=== PATIENT | female | born 1975 | race Caucasian/White ===

== ENCOUNTER 2020-06-11 13:38 | Outpatient (CLI) | payer OTHER, SELFPAY | END 2020-06-11 13:39 | disposition home or self-care (01) | LOC: ANHBWCAUD 13:49 | PROVIDERS: PCP Family Medicine | DX: H90.3 Sensorineural hearing loss, bilateral (principal) | CPT/HCPCS: 92557; 92567 ==

== ENCOUNTER 2021-08-26 16:31 | Outpatient (CLI) | payer OTHER, SELFPAY ==
[2021-08-26 18:29] LABS: SARS-CoV-2 RNA PCR Positive (Negative)
== END 2021-08-26 16:32 | disposition home or self-care (01) ==
LOC: CHSLAB 16:34
PROVIDERS: PCP Family Medicine; Visit Provider Family Medicine
DX: U07.1 COVID-19 (principal)
CPT/HCPCS: C9803; U0003; U0005

== ENCOUNTER 2022-01-26 19:29 | Emergency (ER) | payer OTHER, SELFPAY ==
--- NOTE | 2022-01-26 19:32 | ED.SKABFB ---
HPI - Skin/Abscess/Foreign Bdy General Chief complaint: Skin/Abscess/Foreign Body Stated complaint: rash on legs and arm Time Seen by Provider: 01/26/22 19:32 Source: patient and RN notes reviewed History of Present Illness HPI narrative: Patient is a 46-year-old female who presents the urgent care with complaints of a rash to the legs and arms. Patient states that she believes she has an autoimmune disorder that is causing the rashes however she is unable to see her ski production supervisor until May. Patient states that her mom has lupus and have the same type of rash breakouts. Patient states it only happens when she has direct exposure to the sun. Patient states it got worse yesterday and has been causing a lot of itching and burning. Patient has not put anything [id number] on the rash. No other acute complaints. No acute distress noted. Patient aware of the plan of care. Some parts of this dictation were generated by voice recognition software and may contain typographical and/or grammatical inaccuracies. Related Data Home Medications Medication Instructions Recorded Confirmed fluoxetine 20 mg tablet 20 mg PO DAILY 01/26/22 01/26/22 gabapentin 100 mg capsule 300 mg PO TID 01/26/22 01/26/22 Allergies Allergy/AdvReac Type Severity Reaction Status Date / Time codeine Allergy Mild RASH Verified 01/26/22 19:42 Review of Systems Review of Systems: CONSTITUTIONAL: Denies fever, chills, or sweats. EYES: Denies visual changes, redness, or discharge. ENT: Denies rhinorrhea, congestion, sore throat, or otalgia. CARDIOVASCULAR: Denies chest pain, palpitations, or edema. RESPIRATORY: Denies cough or dyspnea. GASTROINTESTINAL: Denies abdominal pain, nausea, vomiting, or diarrhea. GENITOURINARY: Denies dysuria or hematuria. SKIN: Reports of an itchy raised erythemic dermatitis to bilateral arms and legs MUSCULOSKELETAL: Denies back pain, joint pain, or myalgia. NEUROLOGIC: Denies headache, numbness, or weakness. All other systems reviewed are negative, except as documented in HPI. PMFSH Comments At the time of my signature, I reviewed and agree with the nursing past medical, surgical, social, and family history. There is no relevant family history pertinent to the patient complaint. Exam Narrative: GENERAL: This is a well-nourished, well-developed patient, in no apparent distress. HEAD: normocephalic, atraumatic. EYES: PERRL. Sclera clear/white. Vision is grossly intact. EARS: External ears normal NOSE: External nose normal with no obvious nasal discharge, nares without redness, no rhinorrhea. THROAT: Mucous membranes moist NECK: Neck supple SKIN: Raised erythemic vesicular/papular areas of dermatitis noted to bilateral antecubital fossa's, bilateral upper arms, and right medial thigh NEURO: awake, alert, and oriented to person, place and time. There were no obvious focal neurologic abnormalities. EXTREMITIES: No clubbing, cyanosis, or edema. Course Course Level of Care: Express Care Visit Vital Signs Vital signs: Vital Signs Temperature 97.6 F 01/26/22 19:36 Pulse Rate 74 01/26/22 19:36 Respiratory Rate 16 01/26/22 19:36 Blood Pressure 139/80 01/26/22 19:36 Pulse Oximetry 100 01/26/22 19:36 Temperature 97.6 F 01/26/22 19:36 Pulse Rate 74 01/26/22 19:36 Respiratory Rate 16 01/26/22 19:36 Blood Pressure 139/80 01/26/22 19:36 Pulse Oximetry 100 01/26/22 19:36 Reviewed MDM - Skin/Abscess/Foreign Bdy MDM Narrative Medical decision making narrative: Advised the patient to avoid direct sun exposure. Sit under an umbrella or in the shade if you are going to be outside. Would recommend following up with the ski production supervisor as scheduled and continue to follow-up and call for a sooner appointment. Be aware that any type of heat, even warm showers or bath, will exacerbate the areas. Use the prescription cream to the affected areas as directed. Use a daily antihistamine such as or Cla
[2022-01-26 19:36] VITALS: BP 139/80; PULSE 74; RESP 16; TEMP 36.4; O2SAT 100
== END 2022-01-26 19:55 | disposition home or self-care (01) ==
PROVIDERS: Emergency Provider Nurse Practitioner Family; PCP Family Medicine
DX: L30.9 Dermatitis, unspecified (principal); I34.1 Nonrheumatic mitral (valve) prolapse; J45.909 Unspecified asthma, uncomplicated; Q15.0 Congenital glaucoma
CPT/HCPCS: 99213; G0463

== ENCOUNTER 2022-10-03 12:31 | Emergency (ER) | payer OTHER, SELFPAY ==
--- NOTE | ~2022-10-03 | XR_ITS ---
XR lumbar spine min 4V DATE: 10/03/2022 13:19 INDICATION: Chronic low back pain radiating to left hip TECHNIQUE: AP, lateral, coned lateral lumbosacral and bilateral oblique views COMPARISON: None FINDINGS: There is normal alignment of the lumbar spine. No fracture or bone destruction or spondylolisthesis. The included lower thoracic and lumbar pedicles are intact. There is severe degenerative disease at L5-S1 and mild degenerative disease at the remainder of the l umbar spine. No spondylolysis. The sacroiliac joints are intact. IMPRESSION: Multilevel degenerative disc disease, severe at L5-S1 Reviewed, dictated and finalized at location A. CALL PHARMACY TECHNICIAN
[2022-10-03 12:43] VITALS: BP 131/77; PULSE 84; RESP 16; TEMP 36.9; O2SAT 99
--- NOTE | 2022-10-03 12:45 | ED.BACK ---
HPI - Back Pain/Injury General Chief Complaint: Back Pain/Injury Stated Complaint: Lower back pain to left hip Time Seen by Provider: 10/03/22 12:46 History of Present Illness HPI Narrative: PATIENT PRESENTS WITH A HISTORY OF CHRONIC LOW BACK PAIN. PATIENT DENIES ANY NEW INJURIES AND IS SEEN BY A NEUROLOGIST WITH HER NEXT APPOINTMENT IN NOVEMBER OF 2022 PATIENT STATES THE PAIN STARTS IN HER LOW BACK PAIN AND RADIATES DOWN TO HER LEFT HIP. NO NUMBNESS OR TINGLING NO BOWEL OR BLADDER PROBLEMS. PATIENT STATES SHE WENT TO HER PRIMARY CARE PROVIDER FOR THE BACK PAIN AND WAS DIAGNOSED WITH A UTI ISSUES CURRENTLY TAKING MACROBID FOR THOSE SYMPTOMS. Related Data Home Medications Medication Instructions Recorded Confirmed fluoxetine 20 mg tablet 20 mg PO DAILY 01/26/22 01/26/22 gabapentin 100 mg capsule 300 mg PO TID 01/26/22 01/26/22 brinzolamide 1 %-brimonidine 0.2 % drp 10/03/22 eye drops,suspension (Simbrinza) duloxetine 30 mg capsule,delayed mg PO 10/03/22 release fremanezumab-vfrm 225 mg/1.5 mL mg subcut 10/03/22 subcutaneous auto-injector ([employer]) hydrocodone 5 mg-acetaminophen 325 tablet 10/03/22 mg tablet ketorolac 0.5 % eye drops drp 10/03/22 latanoprost 0.005 % eye drops drp 10/03/22 nitrofurantoin 10/03/22 monohydrate/macrocrystals 100 mg capsule prednisolone acetate 1 % eye drp 10/03/22 drops,suspension timolol maleate 0.5 % eye drops drp 10/03/22 Allergies Allergy/AdvReac Type Severity Reaction Status Date / Time codeine Allergy Mild RASH Verified 01/26/22 19:42 Review of Systems Review of Systems: CONSTITUTIONAL: DENIES FEVER, CHILLS, OR SWEATS. EYES: DENIES VISUAL CHANGES, REDNESS, OR DISCHARGE. ENT: DENIES RHINORRHEA, CONGESTION, SORE THROAT, OR OTALGIA. CARDIOVASCULAR: DENIES CHEST PAIN, PALPITATIONS, OR EDEMA. RESPIRATORY: DENIES COUGH OR DYSPNEA. GASTROINTESTINAL: DENIES ABDOMINAL PAIN, NAUSEA, VOMITING, OR DIARRHEA. GENITOURINARY: DENIES DYSURIA OR HEMATURIA. SKIN: DENIES RASH OR ITCHING. MUSCULOSKELETAL: DENIES BACK PAIN, JOINT PAIN, OR MYALGIA. NEUROLOGIC: DENIES HEADACHE, NUMBNESS, OR WEAKNESS. PSYCHIATRIC: DENIES ANXIETY OR DEPRESSION. PMFSH Comments AT TIME OF SIGNATURE, AGREE WITH NURSING PAST MEDICAL, SURGICAL, SOCIAL AND FAMILY HISTORY. THERE IS NO RELEVANT FAMILY HISTORY PERTINENT TO THE PRESENTING COMPLAINT Exam Narrative: GENERAL: WELL-APPEARING, WELL-NOURISHED, AND IN NO ACUTE DISTRESS. HEAD: NORMOCEPHALIC, ATRAUMATIC. EYES: PERRLA AND EOMI. ENT: NARES CLEAR, NO RHINORRHEA OR EPISTAXIS. MUCOUS MEMBRANES MOIST. NECK: SUPPLE. CHEST: CLEAR TO AUSCULTATION. NO RESPIRATORY DISTRESS. HEART: REGULAR RATE AND RHYTHM. NO MURMUR HEARD. NORMAL PERIPHERAL PULSES. ABDOMEN: SOFT, NONTENDER, NONDISTENDED, NORMAL ACTIVE BOWEL SOUNDS. EXTREMITIES: NORMAL RANGE OF MOTION. NO EDEMA. SKIN: WARM, DRY, NO RASH. SPINE MIDLINE. NO CURVATURE APPARENT. NO VERTEBRAL POINT SPECIFIC TENDERNESS. NO DEFORMITY. NO STEP-OFFS. NORMAL LE STRENGTH BILATERALLY. NORMAL LE SENSATION BILATERALLY. ABLE TO WALK ON TOES AND HEELS WITH NORMAL DORSIFLEXION AND PLANTAR FLEXION STRENGTH. NO WEAKNESS OBSERVED WITH GAIT. LEFT PARASPINAL MUSCLE TENDERNESS FLEXION STRENGTH. NO WEAKNESS OBSERVED WITH GAIT. LEFT PARASPINAL MUSCLE TENDERNESS. LEFT SI JOINT TENDERNESS. FLEXION AND EXTENSION ROM NORMAL, ONLY SLIGHT LIMITATION. NEURO: NO FOCAL DEFICITS. ALERT AND ORIENTED X3. LISA COMA SCALE EYE OPENING: SPONTANEOUS 4 LISA COMA SCALE MOTOR: OBEYS COMMANDS 6 LISA COMA SCALE VERBAL: ORIENTED 5 LISA COMA SCALE TOTAL 15 Course Course Level of Care: Express Care Visit Vital Signs Vital signs: Vital Signs Temperature 36.9 C 10/03/22 12:43 Pulse Rate 84 10/03/22 12:43 Respiratory Rate 16 10/03/22 12:43 Blood Pressure 131/77 10/03/22 12:43 Pulse Oximetry 99 10/03/22 12:43 Oxygen Delivery Room Air 10/03/22 12:43 Temperature 36.9 C 10/03/22 12:43 Pulse Rate 84 10/03/22
== END 2022-10-03 13:32 | disposition home or self-care (01) ==
PROVIDERS: Emergency Provider Nurse Practitioner Family; PCP Nurse Practitioner Adult Health
DX: S39.012A Strain of muscle, fascia and tendon of lower back, initial encounter (principal); X58.XXXA Exposure to other specified factors, initial encounter; G89.29 Other chronic pain; M54.50 Low back pain, unspecified; I34.1 Nonrheumatic mitral (valve) prolapse; J45.909 Unspecified asthma, uncomplicated; M79.7 Fibromyalgia; Q13.81 Rieger anomaly
CPT/HCPCS: 72110; 99213; G0463

== ENCOUNTER 2024-04-14 14:10 | Emergency (ER) | payer OTHER, SELFPAY ==
--- NOTE | 2024-04-14 14:15 | ED.URI ---
HPI - URI/Sore Throat General Stated Complaint: headache/aches/tired/exposed to covid Time Seen by Provider: 04/14/24 14:26 Source: patient and RN notes reviewed Mode of arrival: ambulatory Limitations: no limitations History of Present Illness HPI Narrative: 49-year-old female presents with concern for fatigue, nasal drainage, headache, sinus pressure, body aches. Reports she was exposed to COVID at home. She has taken Tylenol. MD elicited complaint: cough Related Data Home Medications Medication Instructions Recorded Confirmed brinzolamide 1 %-brimonidine 0.2 % drp 10/03/22 eye drops,suspension (Simbrinza) ketorolac 0.5 % eye drops drp 10/03/22 latanoprost 0.005 % eye drops drp 10/03/22 prednisolone acetate 1 % eye drp 10/03/22 drops,suspension timolol maleate 0.5 % eye drops drp 10/03/22 Allergies Allergy/AdvReac Type Severity Reaction Status Date / Time codeine Allergy Mild RASH Verified 01/26/22 19:42 Review of Systems Review of Systems: CONSTITUTIONAL: Denies malaise, chills, sweats, or fever. EYES: Denies visual changes, redness, or discharge. ENT: Reports rhinorrhea, congestion, sinus pain, otalgia and sore throat. CARDIOVASCULAR: Denies chest pain, palpitations, or edema. RESPIRATORY: Reports cough. Denies dyspnea. GASTROINTESTINAL: Denies abdominal pain, nausea, vomiting, diarrhea SKIN: Denies rash or itching. MUSCULOSKELETAL: Denies myalgia. NEUROLOGIC: Denies headache. All systems reviewed & are unremarkable except as noted in HPI and below PMFSH Comments At time of signature, agree with nursing past medical, surgical, social and family history. There is no relevant family history pertinent to the presenting complaint Exam Narrative: GENERAL: Well-appearing, well-nourished, and in no acute distress. HEAD: Normocephalic EYES: PERRLA, conjunctivae clear ENT: Nares clear, turbinates edematous and erythematous, clear discharge. Mucous membranes moist. TM pearly mayers with dull light reflex bilaterally; no tragal tenderness. Oropharynx not erythematous without lesions. Tonsils not enlarged and without exudate, no drooling, no hoarseness, no trismus, uvula midline. NECK: Supple. No lymphadenopathy CHEST: Clear to auscultation, breath sounds equal. No wheezing, rhonchi, rales, or stridor. No respiratory distress, speaks in full sentences. HEART: Regular rate and rhythm. No murmur heard. SKIN: Warm, dry, no rash. NEURO: Alert and oriented x3. PSYCH: Normal mood and affect Course Course Emergency Course: Patient is aware of diagnosis, understands and agrees to treatment plan. Anticipatory guidance given. Patient agrees to follow-up as directed and is aware of reasons to seek care at the emergency department. Portions of this record may have been created with voice recognition software Level of Care: Express Care Visit Vital Signs Vital signs: Reviewed. MDM - URI/Sore Throat MDM Narrative Medical decision making narrative: Differential diagnosis considered: Rankin virus, strep pharyngitis, allergic rhinitis, upper respiratory tract infection, sinusitis, rhinosinusitis, nasopharyngitis. viral pharyngitis, otitis media, otitis externa, pneumonia, bronchitis, viral cough syndrome, viral syndrome, and influenza. Exam findings show no acute concerns or changes; patient is non-toxic appearing and is in no distress. Patient is appropriate for outpatient treatment and follow-up. Lab Data Attestation: I reviewed the patient's lab results. Critical Care Time Critical Care Time Critical Care Time: No Discharge Plan Discharge Clinical Impression: Acute viral syndrome Patient Disposition: Home, Self-Care Condition: Stable Instructions: Viral Syndrome (ED) Additional Instructions: Your rapid COVID test is negative. You can consider retesting for COVID in 1-3 days. -Take strict precautions to prevent the spread of your virus. Be diligent about covering your cough (even when yo
[2024-04-14 14:16] VITALS: BP 154/82; PULSE 74; RESP 16; TEMP 36.7; O2SAT 100
== END 2024-04-14 14:47 | disposition home or self-care (01) ==
PROVIDERS: Emergency Provider Nurse Practitioner; PCP Family Medicine
DX: B34.9 Viral infection, unspecified (principal); Z20.822 Contact with and (suspected) exposure to COVID-19; I34.1 Nonrheumatic mitral (valve) prolapse; J45.909 Unspecified asthma, uncomplicated; M79.7 Fibromyalgia
CPT/HCPCS: 87426; 99212; G0463

== ENCOUNTER 2024-10-13 18:23 | Emergency (ER) | payer OTHER, SELFPAY ==
--- NOTE | 2024-10-13 18:24 | ED.URI ---
HPI - URI/Sore Throat General Chief Complaint: Upper Respiratory Infection Stated Complaint: Cough/Congestion/Fever/Dizziness/Nausea Time Seen by Provider: 10/13/24 18:24 Source: patient Mode of arrival: ambulatory Limitations: no limitations History of Present Illness HPI Narrative: Patient is a 49-year-old female presents with cough, congestion, intermittent fever for over 1 week. Body aches and chills have resolved. Does report symptoms started to resolve 2 days ago and then significantly worsened. Does report mild nausea and dizziness for 1 day with the sinus pressure. Took Tylenol Motrin without relief. Related Data Allergies Allergy/AdvReac Type Severity Reaction Status Date / Time codeine Allergy Mild RASH Verified 01/26/22 19:42 Review of Systems Review of Systems: All systems reviewed & are unremarkable except as noted in HPI and below Constitutional: Constitutional: Denies chills, Denies fatigue, Reports fever(s), Denies headache(s), Denies malaise and Denies weakness Eyes: Eyes: Denies blurry vision, Denies itchy eyes and Denies loss of vision ENT: Denies otalgia, Denies headache(s), Reports nasal congestion, Denies sinus pain and Denies sore throat Cardiovascular: Cardiovascular: Denies chest pain, Denies irregular heart rhythm and Denies dyspnea Respiratory: Respiratory: Reports cough and Denies dyspnea Gastrointestinal: Gastrointestinal: Denies abdominal pain, Denies diarrhea, Reports nausea and Denies vomiting Musculoskeletal: Musculoskeletal: Denies back pain, Denies myalgias and Denies arthralgias Integumentary/Breasts: Skin/Breast: Denies pruritus and Denies rash Neurologic: Reports dizziness, Denies headache(s), Denies loss of vision and Denies weakness Psychiatric: Psychiatric: Reports no additional psychiatric complaints Endocrine: Endocrine: Denies fatigue Allergic/Immunologic: Allergic/Immunologic: Denies itchy eyes PMFSH Comments At time of signature, agree with nursing past medical, surgical, social and family history. There is no relevant family history pertinent to the presenting complaint. Exam Const: General: cooperative, healthy appearing, comfortable, no acute distress and well nourished Nutritional Appearance: well nourished Orientation/consciousness: patient oriented x3 Limitations: no limitations HENMT: Head: normal to inspection, normocephalic and atraumatic Ears: hearing grossly normal bilaterally, external ears normal, EAC's normal, no periauricular adenopathy and TM abnormal wth effusion serous bilateral Face/Nose/Sinus: Normal external nose present, Abnormal mucous membranes and turbinates present erythematous bilateral and diffuse, normal facial exam, sinuses nontender and face symmetric Face and sinus: normal facial exam, sinuses nontender and face symmetric Mouth: Yes Normal oral and palatal mucosa present, Yes lip normal, Yes tongue normal, Yes Normal salivary glands and ducts present, Yes oropharynx normal and Yes moist mucous membranes Teeth and gingiva: dentition normal Throat: posterior oropharynx normal, tonsils normal and uvula midline Eyes: General: appearance normal, both eyes and all related structures Alignment and Position: alignment normal and position normal Periorbital: periorbital findings normal Eyelids: eyelids normal Pupils: Equal, round and reactive pupils present Neck: Neck: normal visual inspection, full ROM, no lymphadenopathy and supple Chest: Chest palpation & inspection: normal inspection of the chest and normal palpation of entire chest wall Resp: Effort & Inspection: normal respiratory effort, able to speak in complete sentences and Actively coughing actively coughing Auscultation: clear to auscultation bilaterally, no crackles, no rales, no rhonchi and no wheezes Cardio: Rate: regular rate Rhythm: regular rhythm Heart sounds: S1 normal heart sound present and S2 normal heart sound present GI: Inspection: normal to inspection Skin: General skin exam: normal color and no rashes or lesions noted Neuro: General: patient oriented x3 and moves all extremities Cranial nerves: Yes Equal, round and reactive pupils present Speech: normal speech Gait exam (Neuro): Normal gait present Extrem: General: normal to inspection, full ROM and no edema Psych: Appearance: grossly normal and well kempt Mental Status: mental status grossly normal Speech and movement: Normal speech and movement present Affect: normal affect Attitude: cooperative Thought process: Normal thought process present Course Course Emergency Course: Discharge instructions reviewed with patient, as well as provided in writing per nursing staff. The instructions also include specific and strict return/GO TO THE ER as well as f/u information. All questions have been answered, and the patient deny any further questions with discharge and discharge plan. Portions of this record may have been created with voice recognition software Level of Care: Express Care Visit Vital Signs Vital signs: Reviewed MDM - URI/Sore Throat MDM Narrative Medical decision making narrative: Pt well hydrated appearing, in no respiratory distress, hemodynamically stable. Recommend supportive care. The patient is stable at time of discharge the clinical impression was discussed and the patient was given the opportunity to ask questions, which were addressed as completely as possible given the information available at present. Anticipatory guidance and return to care precautions were discussed and the importance of primary care follow-up was stressed and encouraged. The patient voiced understanding of the plan, indications to return, and the need for follow-up. Differential diagnosis considered: Bronchitis, Rankin virus, strep pharyngitis, allergic rhinitis, upper respiratory tract infection, sinusitis, rhinosinusitis, nasopharyngitis. viral pharyngitis, otitis media, otitis externa, otitis effusion, foreign body, cerumen impaction, viral syndrome, and influenza.? Exam findings show no acute concerns or changes; patient is non-toxic appearing and is in no distress.? Patient is appropriate for outpatient treatment and follow-up.? Medical Records Attestation: I reviewed the patient's medical records. Discharge Plan Discharge Clinical Impression: Upper respiratory infection with cough and congestion Patient Disposition: Home, Self-Care Condition: Stable Instructions: Upper Respiratory Infection (ED) Additional Instructions: Take antibiotic as prescribed. Take steroids in the morning with food. Use Tessalon Perles as needed for cough. Use inhaler with spacer as needed. Other symptomatic treatments include: -Alternate Tylenol and Motrin per package directions for fever or pain: Tylenol 650-1000mg by mouth every 4-6 hours. Do not exceed 4000mg in 24 hours. Advil (Ibuprofen) 600 mg by mouth every 6 hours. Do not exceed 2400mg in 24 hours. 8 AM: Tylenol 11 AM: Ibuprofen 2 PM: Tylenol 5 PM: Ibuprofen 8 PM: Tylenol 11 PM: Ibuprofen 2 AM: Tylenol 5 AM: Ibuprofen -Antihistamine medication such as Benadryl at night and Zyrtec/Claritin/Sofía during the day can help improve symptoms. -Use Flonase twice a day for 5 days then daily to help reduce the inflammation and dry up your sinuses. -You can also use Sudafed or Mucinex. Be sure to drink plenty of water with these medications at least 8 ounces with every dose and it is important to drink 8 to 10 glasses of water per day. Water is a natural decongestant -Eat and drink things that are easy to swallow, like tea or soup, or popsicles. -Oral rinses such as: Salt water gargles and/or may use topical anesthetic (eg. Chloraseptic spray) or lozenges to relieve dryness or throat pain). -Frequent hand washing or hand equipment maint tech is one of the best ways to prevent spread of infection. -Using a vaporizer or humidifier at night will also help thin secretions and help with coughing up phlegm. Call your Primary Care Doctor and make a follow-up appointment in 3 days. If your cough worsens, you develop a fever greater than 103, you develop shaking chills, a fast heartbeat, trouble breathing and/or feel you are are breathing much faster than usual, call your Primary Care Doctor or go to the ER. Patient Language: Chadian Prescriptions: New albuterol sulfate 90 mcg/actuation HFA aerosol inhaler 2 puff inhalation QID PRN (Reason: shortness of breath or wheezing) Qty: 6.7 0RF (DME) Aerochamber MV Spacer See Rx Instructions .Route Qty: 1 0RF Rx Instructions: As directed amoxicillin 875 mg tablet 875 mg PO Q12H 7 Days Qty: 14 0RF benzonatate 100 mg capsule 100 mg PO BID PRN (Reason: cough) Qty: 14 0RF fluticasone propionate [Flonase Allergy Relief] 50 mcg/actuation spray,suspension 1 spray intranasal DAILY Qty: 16 0RF Rx Instructions: administer into each nostril prednisone 20 mg tablet 40 mg PO DAILY 5 Days Qty: 10 0RF Follow-up/Referrals: Libia,David Hargrove MD [Primary Care Provider] - 3 Days Time of Disposition: 18:56
--- OUTSIDE RECORDS SUMMARY | 2024-10-13 18:26 | XMS_ITS | Encounter Summary ---
Author Organization [facility] Address [address] [place] [address] Care Team Providers Care Sheet Metal Insulator Name Role Phone David Clark MD Primary Care Provider [phone] Reason for Visit * Reason Onset Date Comments Appointment 08/31/2024 Encounter Details Date Type Department Care Team (Late st Contact Info) Description 08/31/2024 Telephone [facility] - Ophthalmology [address] [place] [phone] Jerri Carrasco MD [address] [place] [address] [place] [phone] Appointment Social History Tobacco Use Types Packs/Day Years Used Date Smoking Tobacco: Every Day Cigarettes 0.5 23.1 Started: 2001 Smokeless Tobacco: Never Comments:Tried patches, didn 't work, used to be at a full pack but now at half pack Alcohol Use Standard Drinks/Week Comments Not Currently 0 (1 standard drink = 0.6 oz pur e alcohol) occasionally PHQ-2 Answer Date Recorded PHQ2 TOTAL SCORE 2 07/23/2022 Sex and Gender Information Value Date Recorded Sex Assigned at Not on file Gender Identity Not on file Sexual Orientation Not on file documented as of this encounter Functional Status Functional Status Response Date of Assess ment Is person deaf or have serious hearing difficult y? No 06/19/2019 Is person blind or have serious difficulty seein g? No 06/19/2019 Does person have serious dif ficulty walking/climbing stairs? No 06/19/2019 Does person have difficulty dressing/bathing? No 06/19/2019 Does person have difficulty doing errands alone? No 06/19/2019 Cognitive Status Response Date of Assessm ent Does person have difficulty concentrating/remembering/making decisions? No 06/19/2019 documented as of this encounter Miscellaneous Notes * Telephone Encounter - Phillip Rodríguezicka - 08/31/2024 10:27 AM CST Current Provider name:Dr Carrasco Reason for call: patient is calling the office to schedule an appt with Dr Carrasco Patient Call Back number: [phone] R LODGE CLERK documented in this encounter Plan of Treatment Upcoming Encounters Date Type Department Care Team (Latest Contact Info) Description 10/24/2024 1:00 PM MOTOR LODGE CLERK Office Visit [facility] - Neurology [address] [place] [phone] Gladis Prince MD [address] [place] [address] [place] [phone] 01/22/2025 1:15 PM CDT Office Visit [facility] - Ophthalmology [address] [place] [phone] Jerri Carrasco MD [address] [place] [address] [place] [phone] 02/26/2025 9:15 AM CDT Hospital Encounter [facility] [address] [place] [phone] Renard Momin MD [address] [place] [phone] Surgery General 02/26/2025 9:15 AM CDT - 02/26/2025 11:20 AM CDT Surgery [facility] [address] [place] [phone] Renard Momin MD [address] [place] [phone] Baerveldt implant 250mm RIGHT EYE Scheduled Procedures Name Priority Associated Diagnoses Date/Ti me 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
--- OUTSIDE RECORDS SUMMARY | 2024-10-13 18:26 | XMS_ITS | Encounter Summary ---
Author Organization [facility] Health Address [address] [place] [address] Care Team Providers Care Hydrologic Engineer Name Role Phone David Clark MD Primary Care Provider [phone] Encounter Details Date Type Department Care Team (Late st Contact Info) Description 04/01/2023 Telephone [facility] - Centralized Scheduling [address] [place] [phone] Jerri Carrasco MD [address] [facility] [place] [phone] Social History Tobacco Use Types Packs/Day Years [...] No 06/19/2019 documented as of this encounter Plan of Treatment Upcoming Encounters Date Type Department Care Team (Latest Contact Info) Description 10/24/2024 1:00 PM RIVET HOLE PUNCHER Office Visit [facility] - Neurology [address] [place] [phone] Gladis Prince MD [address] [place] [address] [place] [phone] 01/22/2025 1:15 PM CDT Office Visit [facility] - Ophthalmology [address] [place] [phone] Jerri Carrasco MD [address] [place] [address] [place] [phone] 02/26/2025 9:15 AM CDT Hospital Encounter [facility] [address] [place] [phone] Renard Momin MD [address] [place] [phone] Surgery General 02/26/2025 9:15 AM CDT - 02/26/2025 11:20 AM CDT Surgery [facility] [address] [place] [phone] Renard Momin MD [address] [place] [phone] Baerveldt implant 250mm RIGHT EYE Scheduled Procedures Name Priority Associated Diagnoses Date/Ti me 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
--- OUTSIDE RECORDS SUMMARY | 2024-10-13 18:26 | XMS_ITS | Clinical Summary ---
Author Organization [facility] Address [address] [place] [address] Care Team Providers Care Band Director Name Role Phone David Clark MD Primary Care Provider [phone] Source Comments [facility],non-owned Affiliates and Associated Physician Practices is amultiple site organization consisting of ambulatory clinics and hospital sitesin [place], [place], [place] and [place]. This disclosure is being madepursuant to the Care Everywhere program and may not contain all information available regarding this patient. Last updated 18.[facility] Allergies Active Allergy Reactions Criticality Noted Date Comments Acetazolamide Shortness of Breath High 12/31/2017 Severe reaction. Could not breathe, move or walk. Codeine Urticaria Medium 09/03/2017 Codeine Urticaria Medium 09/03/2017 Dorzolamide-Timolol Other Medium 12/29/2019 Burning sensation, severe per patient Shellfish-Derived Products Shortness of Breath,Rash,Swelling ,Other High 06/13/2018 Medications * Be aware that medications may not be up to date on this document. Alwaysverify current medications with the patient. Medication Sig Dispensed Refills Start Date End Date Status ibuprofen (MOTRIN) 600 MG tablet Take 1 (one) tablet by mouth every 6 hours as needed for Pain Active EPINEPHrine (EPIPEN) 0.3 MG/0.3ML auto-injector pen Inject 0.3 mL into muscle as needed for Anaphylaxis 0.3 mL 10/10/2020 Active gabapentin (NEURONTIN) 100 MG capsuleIndicatio ns:Migraine without status migrainosus, not intractable, unspecified migraine type,Numbness and tingling of right leg Take 3 (three) capsules by mouth 3 times daily 270 capsule 3 05/27/2021 Active DULoxetine (Cymbalta) 30 MG capsule Take 1 (one) capsule by mouth once daily 07/20/2022 Active Fremanezumab-vfr m (Ajovy) 225 MG/1.5ML SOAJIndications: Migraine without status migrainosus, not intractable, unspecified migraine type Inject 225 mg subcutaneously every 30 days 1.5 mL 5 09/07/2022 Active phenazopyridine (Pyridium) 100 MG tablet Take 1 (one) tablet by mouth 3 times daily as needed for Pain Active docusate sodium (Colace) 100 MG capsule TAKE 1 CAPSULE BY MOUTH TWICE A DAY FOR 14 DAYS 03/11/2023 Active solifenacin (Vesicare) 10 MG tablet Take 1 (one) tablet by mouth once daily 08/30/2023 Active bimatoprost (Lumigan) 0.01 % ophth solution Instill 1 (one) drop into right eye at bedtime 15 mL 4 03/14/2024 Active brimonidine (Alphagan) 0.2 % ophthalmic solution Instill 1 (one) drop into both eyes 3 times daily 15 mL 4 03/31/2024 Active prednisoLONE acetate (Pred Forte) 1 % ophthalmic suspension PLEASE SEE ATTACHED FOR DETAILED DIRECTIONS 03/31/2024 Active timolol maleate (Timoptic) 0.5 % ophthalmic solution Instill 1 (one) drop into both eyes 2 times daily 15 mL 11 09/15/2024 Active timolol maleate (Timoptic) 0.5 % ophthalmic solution Instill 1 (one) drop into both eyes 2 times daily 15 mL 11 02/11/2024 09/15/19 25 Discontinu ed(Reorder ) Active Problems Problem Noted Date Diagnosed Date Acute anterior uveitis of right eye 02/02/2024 Hypermobility of joint 10/23/2022 Mitral valve prolapse 10/23/2022 Parosmia 10/23/2022 Phantosmia 10/23/2022 Sleep apnea 10/23/2022 Uterine mass 10/23/2022 CME (cystoid macular edema), right 06/26/2022 Nasal obstruction 10/14/2021 Deviated nasal septum 10/14/2021 Nasal turbinate hypertrophy 10/14/2021 Nasal valve collapse 10/14/2021 Edentulous 10/14/2021 Sleep related gastroesophageal reflux disease Back pain 10/14/2021 Allergic rhinitis 10/14/2021 Night sweats 10/14/2021 History of asthma 10/14/2021 GERD (gastroesophageal reflux disease) DJD (degenerative joint disease), multiple sites 10/14/2021 History of nasal polypectomy 10/14/2021 Laryngopharyngeal reflux 10/14/2021 Pachyderma of larynx 10/14/2021 Routine health maintenance 07/11/2021 Overview (07/25/2021): Last Assessment & Plan: Condition: stable Follow up in: one year or sooner as recommended Personal history of COVID-19 07/11/2021 Overview (07/25/2021): Last Assessment & Plan: Condition: stable Follow up in: three months Osteoarthritis 07/11/2021 Overview (07/25/2021): Last Assessment & Plan: Condition: stable Follow up in: three months Migraine headache 07/11/2021 Overview (07/25/2021): Last Assessment & Plan: Condition: stable Follow up in: three months Depression, recurrent 07/11/2021 Overview (07/25/2021): Last Assessment & Plan: Condition: unstable Never seen by mental health provider. Advised to discuss it with PCP Medications: Taking medications as prescribed If taking medications, do not stop treatment without consulting healthcare provider. If symptoms worsen or do not improve/stabilize, notify health care provider right away. If thoughts of harming self or others notify health care provider immediately &/or seek urgent/emergent care including calling Suicide Hotline ( ) or 911. Follow up in one month with Psychologist/Counselor/SupportGroup/Psychiatrist Chronic pansinusitis 07/11/2021 Overview (07/25/2021): Last Assessment & Plan: Condition: stable Follow up in: six months Centrilobular emphysema 07/11/2021 Overview (07/25/2021): Last Assessment & Plan: Condition: stable Reviewed trigger avoidance and reviewed proper use of inhalers and rescue medications. Reviewed concerning signs/symptoms and ER precautions. Follow up in: three months Body mass index (BMI) of 26.0-26.9 in adult 06/23 Overview (07/25/2021): Last Assessment & Plan: Condition: stable Educated patient on normal BMI range of 18.5 to 24.9 Advised to monitor nutrition to not exceed caloric needs, or as indicated by PCP in order to maintain a healthy weight and BMI. Advised to engage in aerobic physical activity, if indicated to be safe by PCP, to assist with maintaining a healthy weight and BMI. Advised to follow up with PCP to address nutrition as needed to assist with reaching or maintaining a healthy weight and BMI. Follow up in: three months Restless legs syndrome 07/11/2021 Overview (07/25/2021): Last Assessment & Plan: Condition: stable Follow up in: three months Neuropathy 05/27/2021 Suspected condition 04/24/2021 Overview (05/21/2021): SKCM - Skeletal - medium Added by RAMP Suspected Conditions PSYL - Psychiatric - low Added by RAMP Suspected Conditions Family history of aortic aneurysm 07/24/2020 Chronic constipation 02/26/2020 Overview (05/24/2020): Added automatically from request for surgery [id number] Dysphagia 02/26/2020 Overview (05/24/2020): Added automatically from request for surgery [id number] Nuclear sclerotic cataract, right 06/19/2019 Mixed conductive and sensorineural hearing loss, bilateral 03/01/2019 Overview (07/25/2021): Last Assessment & Plan: Condition: stable Follow up in: six months Tinnitus, bilateral 12/13/2018 Overview (07/25/2021): Last Assessment & Plan: Condition: stable Follow up in: three months Vitamin D insufficiency 09/14/2018 Overview (07/25/2021): Last Assessment & Plan: Condition: stable Follow up in: three months PNAR (perennial non-allergic rhinitis) 9 Overview (07/25/2021): Last Assessment & Plan: Condition: stable Follow up in: three months 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 However subjectively this asymmetry has been increasing recently and we are arranging ocular plastics consult for further evaluation especially with the possibility of need for glaucoma surgery right eye, we wish to rule out any occult pathology in the orbit first. 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 The patient also shows some facial asymmetry with the right orbit lower grossly compared with left. 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 Aleshia Porter MD 01/06/2019 12:54 PM Glaucoma, secondary, right, severe stage 018 Overview (12/31/2017): Patient appears to have developed severe glaucoma right eye associated with Axenfeld Rosetta syndrome. By report, intraocular pressure was 64 right eye at diagnosis at [facility] in late 2016. 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 Renard Momin MD 12/31/2017 11:34 AM Retinal pigment epithelium abnormality 8 Overview (12/31/2017): Baseline exam shows stippled pigmentary change beginning in the inferior nasal retina that extends into the inferior temporal retina outside the arcade. It is unclear if this is a congenital or acquired change and we are requesting retina consult for further evaluation. 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 10/14/2021 Cough 03/20/2020 11/20/2022 Encounters Date Type Department Care Team Description 09/19/2024 Orders Only [facility] - Ophthalmology [address] [place] [phone] Charlie Valera MD 09/18/2024 1:45 PM GROUP PRACTICE PEDIATRICIAN Office Visit [facility] Ophthalmology [address] [place] [phone] Jerri Carrasco MD Cystoid macular edema of right eye (Primary Dx); Glaucoma, secondary, right, severe stage; 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 - Ophthalmology [address] [place] [phone] Jerri Carrasco MD Appointment from Last 3 Months Immunizations Name Administration Dates Next Due FLU VACCINE QUAD IIV4 SPLIT 0.25 ML IM ,07/04/2016,06/14/2014 HEP B VACCINE, ADULT 3 DOSE 01/03/2015, 4 INFLUENZA VACCINE 08/01/2019,05/25/2018 INFLUENZA VACCINE, QUADR. (F LUZONE; FLULAVAL; FLUARIX; AFLURIA QUADRIVALENT; 6MO+), 0.5 ML (IIV4) 05/28/2022,05/25/2018 TDAP (7yrs+) 01/03/2019 Family History Medical History Relation Name Comments Depression Brother Diabetes; unknown type Mother Glaucoma Mother Hypertension Mother Relation Name Status Comments Brother Mother Social History Tobacco Use Types Packs/Day Years [...] on file Sexual Orientation Not on file Last Filed Vital Signs Vital Sign Reading Time Taken Comments Blood Pressure 146/86 10/26/2023 2:34 PM GROUP PRACTICE PEDIATRICIAN Pulse 76 10/26/2023 2:34 PM GROUP PRACTICE PEDIATRICIAN Temperature 36.2 C (97.1 F) 09/22/2023 11:39 AM GROUP PRACTICE PEDIATRICIAN Respiratory Rate 18 09/22/2023 11:39 AM GROUP PRACTICE PEDIATRICIAN Oxygen Saturation 98% 10/26/2023 2:34 PM GROUP PRACTICE PEDIATRICIAN Inhaled Oxygen Concentration 21% 11/07/2019 8 :00 AM CDT Weight 77.1 kg (170 lb) 10/26/2023 2:34 PM GROUP PRACTICE PEDIATRICIAN Height 165.1 cm (5' 5 ) 10/26/2023 2:34 PM GROUP PRACTICE PEDIATRICIAN Body Mass Index 28.29 10/26/2023 2:34 PM GROUP PRACTICE PEDIATRICIAN Plan of Treatment Upcoming Encounters Date Type Department Care Team (Latest Contact Info) Description 10/24/2024 1:00 PM GROUP PRACTICE PEDIATRICIAN Office Visit [facility] - Neurology [address] [place] [phone] Gladis Prince MD [address] [place] [address] [place] [phone] 01/22/2025 1:15 PM CDT Office Visit [facility] - Ophthalmology [address] [place] [phone] Jerri Carrasco MD [address] [place] [address] [place] [phone] 02/26/2025 9:15 AM CDT Hospital Encounter [facility] [address] [place] [phone] Renard Momin MD [address] [place] [phone] Surgery General 02/26/2025 9:15 AM CDT - 02/26/2025 11:20 AM CDT Surgery [facility] [address] [place] [phone] Renard Momin MD [address] [place] [address] Baerveldt implant 250mm RIGHT EYE Scheduled Procedures Name Priority Associated Diagnoses Date/Ti me 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, severe stage 02/26/2025 9:15 AM CDT Health Maintenance Due Date Last Done Comments COLOGUARD (AGES 45-75) - COLON CA SCREENING [address] COLONOGRAPHY - COLON CA SCREENING 1975 FIT - COLON CA SCREENING 1975 FLEX SIG - COLON CA SCREENING 1975 LIPID TESTING 1975 HIV SCREENING 1990 HEPATITIS C SCREENING 03/19/1993 PAP SMEAR 10/23/2001 10/23/1998 HEPATITIS B VACCINE (3 of 3 - 19+ 3-dose series) 02/28/2015 01/03/2015, 06/14/2014 MAMMOGRAM 12/23/2023 12/22/2021, 05/09/2021, 02/03/2019, Additional history exists COVID-19 VACCINE ( - 2023- season) 2024 INFLUENZA VACCINE (#1) 2024 , 08/01/2019, 08/01/2019, Additional history exists DEPRESSION SCREENING 08/23/2024 08/07/2022, 07/23/20 22 ZOSTER VACCINE (1 of 2) 2025 SCREENING FOR DIABETES 09/22/2026 09/22/2023, 2019 DTAP/TDAP/TD VACCINES (2 - Td or Tdap) 01/03/2029 01/03/2019 COLONOSCOPY - COLON CA SCREENING 03/11/2030 03/11/2020 Colorectal Cancer Screening 03/11/2030 HIB VACCINE Aged Out No longer eligi ble based on patient's age to complete this topic HPV VACCINE Aged Out No longer eligi ble based on patient's age to complete this topic MENINGOCOCCAL (Group B) VACCINE Aged Out No longer eligible based on patient's age to complete this topic MENINGOCOCCAL VACCINE Aged Out No romie felicitas eligible based on patient's age to complete this topic Medical Devices Implanted Type Area Dental Cream Maker Device Identifier Shelf Expiration Date Model / Serial / Lot Drain Glcm Thk.9mm Blnt Tpr [facility] Flxb - [id number] Implanted:Qty: 1 on 06/30/2018 by Renard Momin MD at [facility] Right: Eye [facility] 05/16/2020 7 / [id number] / [id number] Graft Tissue Ttpl Ioptch Sclr .8x.5cm - [id number] Implanted:Qty: 1 on 06/30/2018 by Renard Momin MD at [facility] Right: Eye [employer] 03/22/2023 [id number] / [id number] / [id number] Iol Implanted:Qty: 1 on 06/19/2019 by Renard Momin MD at [facility] Right: Eye 09/22/2023 [id number] 19.5D / [id number] / Procedures Procedure Name Priority Date/Time Associated Diagnosis Comments RETINAL ANALYSIS OCT Routine 09/18/2024 1:25 PM GROUP PRACTICE PEDIATRICIAN Cystoid macular edema of right eye COMPREHENSIVE METABOLIC PANEL STAT 09/22/2023 2:18 PM GROUP PRACTICE PEDIATRICIAN CYTOLOGY SMEAR PAP THIN PREP ANUJA 10/23/1998 10:34 AM GROUP PRACTICE PEDIATRICIAN from Last 3 Months or Most Recently Relevant to Health Maintenance Results * RETINAL ANALYSIS OCT (09/18/2024 1:25 PM GROUP PRACTICE PEDIATRICIAN) Anatomical Region Laterality Modality Head External-Camera Photography Narrative 09/19/2024 10:35 AM GROUP PRACTICE PEDIATRICIAN Images from the original result were not included. OD: mild ERM, mild DRIL, no CME, overall improved/stable from prior OS: mild ERM, otherwise normal, stable from previous OD (top 04/19/24, bottom 09/18/2024) OS (top 04/19/24, bottom 09/18/2024) Jerri Carrasco MD OPHTHALMOLOGY SCHED ORD W PACS * (ABNORMAL) COMPREHENSIVE METABOLIC PANEL (09/22/2023 2:18 PM GROUP PRACTICE PEDIATRICIAN) BUN 9 7 - 26 mg/dL 09/22/2023 3:34 PM [facility] Creatinine 0.77 0.56 - 0.96 mg/dL 09/22/2023 3:34 PM [facility] Sodium 138 136 - 145 mmol/L 09/22/2023 3:34 PM [facility] Potassium 4.3 3.5 - 4.5 mmol/L 09/22/2023 3:34 PM [facility] Chloride 109(H) 98 - 107 mmol/L 09/22/2023 3:34 PM [facility] CO2 21(L) 22 - 29 mmol/L 09/22/2023 3:34 PM [facility] Glucose 92 70 - 115 mg/dL 09/22/2023 3:34 PM [facility] Calcium 8.9 8.4 - 10.2 mg/dL 09/22/2023 3:34 PM [facility] Protein Total 7.0 6.0 - 8.3 g/dL 09/22/2023 3:34 PM [facility] Albumin 3.6 3.4 - 5.0 g/dL 09/22/2023 3:34 PM [facility] Bilirubin Total 0.7 0.2 - 1.2 mg/dL 09/22/2023 3:34 PM [facility] Alkaline Phosphatase 67 40 - 150 U/L 09/22/2023 3:34 PM [facility] ALT 18 5 - 55 U/L 09/22/2023 3:34 PM [facility] AST 14 5 - 34 U/L 09/22/2023 3:34 PM [facility] Anion Gap 8 6 - 16 09/22/2023 3:34 PM [facility] BUN/Creatinine Ratio 12 7 - 23 09/22/2023 3:34 PM [facility] Osmolality Calculated 284 275 - 295 mOsm/kg 09/22/2023 3:34 PM [facility] Albumin/Globulin Ratio 1.1 1.1 - 2.3 09/22/2023 3:34 PM [facility] eGFR by CKD-EPI >90 >=90 mL/min/1.7 3 m2 09/22/2023 3:34 PM [facility] Blood BLOOD SPECIMEN / Unknown Venipuncture / Unknown 09/22/2023 2:18 PM GROUP PRACTICE PEDIATRICIAN 09/22/2023 3:01 PM [facility] Linnea Zavala DENTAL CREAM MAKER-HIDE CURER LAB - CHEMIS TRY ORDERABLES [facility] [address] [place] [address], [facility] [phone] * CYTOLOGY SMEAR PAP THIN PREP (10/23/1998 10:34 AM GROUP PRACTICE PEDIATRICIAN) Result CASE NUMBER [id number] Comment: ORDERING PHYSICIAN HOMER MORAES SPECIMEN TYPE PAP Smear Date 10/23/1998 Procedure Cervical/Endocervical, 1 Vial for Thin Prep Received Specimen Adequacy Satisfactory for Evaluation but Limited No endocervical component in a non-atrophic cervical smear. Categorization Within Normal Limits Comment Inflammation Present. Snomed. 10/29/1998 1528 <1> Armor Reconnaissance Vehicle Driver Rosanne Silverio (ASCP) PAP Footnote The PAP smear is only a screening procedure to aid in the detection of cervical cancer and its precursors. It is not a diagnostic procedure and should not be used as the sole means to detect cervical cancer. Both false negative and false positive results have been experienced. MISCELLANEOUS SAMPLES / Unknown 10/23/1998 10:34 AM GROUP PRACTICE PEDIATRICIAN 10/28/1998 10:34 AM GROUP PRACTICE PEDIATRICIAN Historical Provider LAB - PATHOLOGY/C YTOLOGY ORDERABLES from Last 3 Months or Most Recently Relevant to Health Maintenance Advance Directives * Full Code (Latest Code Status on File) Date Activated Date Inactivated Comments 06/30/2018 8:25 AM 06/30/2018 10:07 AM * Full Code Date Activated Date Inactivated Comments 06/30/2018 6:34 AM 06/30/2018 8:25 AM Care Teams Band Director Relationship Specialty Start Date End Date David Clark MD [address] [facility] [address] [place] [phone] PCP - General 12/21/17
--- OUTSIDE RECORDS SUMMARY | 2024-10-13 18:26 | XMS_ITS | Encounter Summary ---
Author Organization [facility] Address [address] [facility] [place] [address] Care Team Providers Care Respiratory Practitioner Name Role Phone David Clark MD Primary Care Provider [phone] Reason for Visit * Reason Onset Date Comments Nurse Only 02/01/2024 Eye Problem 02/01/2024 Encounter Details Date Type Department Care Team (Late st Contact Info) Description 02/01/2024 Telephone [facility] - Centralized Scheduling [address] [place] [phone] Jerri Carrasco MD [address] [facility] DEPT [place] [phone] Nurse Only; Eye Problem Social History Tobacco Use Types Packs/Day Years [...] encounter Miscellaneous Notes * Telephone Encounter - Jessenia Coley - 02/01/2024 11:39 AM CDT Pt is calling to speak to Nurse about right eye painful and red and barely can open,light hurts eye, watery no drainage documented in this encounter Plan of Treatment Upcoming Encounters Date Type Department Care Team (Latest Contact Info) Description 10/24/2024 1:00 PM TRAINING ADMINISTRATOR Office Visit [facility] - Neurology [address] [place] [phone] Gladis Prince MD [address] [place] [address] [place] [phone] 01/22/2025 1:15 PM CDT Office Visit [facility] - Ophthalmology [address] [place] [phone] Jerri Carrasco MD [address] [place] [address] DE[place] [phone] 02/26/2025 9:15 AM CDT Hospital Encounter [facility] [address] [place] [phone] Renard Momin MD [address] [place] [phone] Surgery General 02/26/2025 9:15 AM CDT - 02/26/2025 11:20 AM CDT Surgery [facility] [address] [place] [phone] Renard Momin MD [address] [place] [phone] Baerveldt implant 250mm RIGHT EYE Scheduled Procedures Name Priority Associated Diagnoses Date/Ti me 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
--- OUTSIDE RECORDS SUMMARY | 2024-10-13 18:26 | XMS_ITS | Encounter Summary ---
Author Organization [facility] Address [address] [address] Care Team Providers Care Tissue Coordinator Name Role Phone David Clark MD Primary Care Provider [phone] Reason for Visit * Reason Onset Date Comments Appointment 04/10/2022 Encounter Details Date Type Department Care Team (Late st Contact Info) Description 04/10/2022 Telephone [facility] [address] [place] [address] Jerri Carrasco MD [address] [facility] [place] [address] Appointment Social History Tobacco Use Types Packs/Day Years Used Date Smoking Tobacco: Every Day Cigarettes 0.5 23.1 Started: 2001 Smokeless Tobacco: Never Comments:Tried patches, didn 't work, used to be at a full pack but now at half pack Alcohol Use Standard Drinks/Week Comments Not Currently 0 (1 standard drink = 0.6 oz pur e alcohol) occasionally Sex and Gender Information Value Date Recorded [...] encounter Miscellaneous Notes * Telephone Encounter - Wilton Breenlisa - 04/10/2022 12:50 PM CDT Pt had an Injection done with Dr. Carrasco Friday 04/06. Doctor wanted her to come back this coming Friday 04/13 for another injection. She said when she was leaving out, there was no one available to schedule her. documented in this encounter Plan of Treatment Upcoming Encounters Date Type Department Care Team (Latest Contact Info) Description 10/24/2024 1:00 PM [employer] COUNSEL[employer] Office Visit [facility] - Neurology [address] [place] [phone] Gladis Prince MD [address] [place] [address] [place] [phone] 01/22/2025 1:15 PM CDT [facility] - Ophthalmology [address] [place] [phone] Jerri Carrasco MD [address] [place] [address] [place] [phone] 02/26/2025 9:15 AM CDT Hospital Encounter [facility] SURGERY [address] [place] [phone] Renard Momin MD [address] [place] [phone] Surgery General 02/26/2025 9:15 AM CDT - 02/26/2025 11:20 AM CDT Surgery [facility] SURGERY [address] [place] [phone] Renard Momin MD [address] [place] [address] Baerveldt implant 250mm RIGHT EYE Scheduled Procedures Name Priority Associated Diagnoses Date/Ti me 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
--- OUTSIDE RECORDS SUMMARY | 2024-10-13 18:26 | XMS_ITS | Clinical Summary ---
Author Organization [facility] Address [address] [place] [address] Phone Care Team Providers Care Program Manager Name Role Phone David Clark MD Primary Care Provider [phone] Renard Momin [phone] Allergies Active Allergy Reactions Criticality Noted Date Comments Acetazolamide Shortness of Breath High 12/31/2017 Severe reaction. Could not breathe, move or walk. Codeine Hives 09/03/2017 Dorzolamide Hcl-Timolol Mal Other (see Comments) 08/31/2020 Burning eye sensation Shellfish-Derived Products Other (see Comments) 06/13/2018 Medications Clindamycin HCl 300 MG Capsule 8 Active naproxen (NAPROSYN) 500 MG Tablet 8 Active brimonidine (ALPHAGAN) 0.15 % Solution 3 times daily. 7 Active dorzolamide-gonzalez lol (COSOPT) 22.3-6.8 MG/ML Solution 3 times daily. 7 Active latanoprost (XALATAN) 0.005 % Solution 7 Active moxifloxacin (VIGAMOX) 0.5 % Solution Place 1 Drop in affected eye(s) 3 times daily. Active tobramycin-dexam ethasone (TOBRADEX) 0.3-0.1 % Suspension 1-2 Drops every 4 hours. Active Carboxymethylcel ronni-Glycerin (REFRESH OPTIVE) 0.5-0.9 % Solution Place in affected eye(s) as needed. Active Acetaminophen (TYLENOL PO)Indications:S he has been using this for headaches PRN Take by mouth as needed. 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 20 Tab 9 Active Additional Information Patient not taking.Reported on 08/31/2020 amitriptyline (ELAVIL) 10 MG Tablet 1 Active timolol (TIMOPTIC) 0.5 % Solution Place 1 Drop in affected eye(s). 0 Active FLUoxetine HCl (PROZAC PO) Take by mouth. Act bj albuterol 108 (90 Base) MCG/ACT Aerosol Solution take 2 Puffs by inhalation every 6 hours as needed for Cough. 6.7 g 1 Active Active Problems Problem Noted Date Diagnosed Date Mixed conductive and sensorineural hearing loss, bilateral 03/01/2019 Tinnitus, bilateral 12/13/2018 Persistent hypersomnia 09/14/2018 Snoring 09/14/2018 PLMD (periodic limb movement disorder) 9 Iron metabolism disorder 09/14/2018 Vitamin D insufficiency 09/14/2018 Malocclusion of teeth 09/14/2018 Mandibular retrognathism 09/14/2018 DNS (deviated nasal septum) 09/14/2018 Nasal polyps 09/14/2018 Nasal valve collapse 09/14/2018 Hypertrophy of inferior nasal turbinate 09/14/19 19 PNAR (perennial non-allergic rhinitis) 9 Laryngopharyngeal reflux 09/14/2018 Pachyderma of larynx 09/14/2018 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 2018 Family History Medical History Relation Name Comments Aneurysm Brother 1 Asthma Brother 2 No Known Problems Father No Known Problems Maternal Grandfather No Known Problems Maternal Grandmother Aneurysm Mother Diabetes Mother Hypertension Mother Stroke Mother No Known Problems Paternal Grandfather No Known Problems Paternal Grandmother Asthma Sister Relation Name Status Comments Brother 1 Brother 2 Alive Father Alive Maternal Grandfather Maternal Grandmother Mother Paternal Grandfather Paternal Grandmother Sister Alive Social History Tobacco Use Types Packs/Day Years Used Date Smoking Tobacco: Every Day Cigarettes 1 16 Smokeless Tobacco: Never Tobacco Cessation:Ready to Q uit: Yes Alcohol Use Standard Drinks/Week Comments No 0 (1 standard drink = 0.6 oz pur e alcohol) Comments No Sex and Gender Information Value Date Recorded Sex Assigned at Not on file Legal Sex Female 7:23 PM CDT Gender Identity Not on file Sexual Orientation Not on file Occupation Industry Job Start Date Job End Date unemployed Not on file Not on file Not on file Last Filed Vital Signs Vital Sign Reading Time Taken Comments Blood Pressure 139/75 05/29/2021 9:31 PM CDT Pulse 78 05/29/2021 9:31 PM CDT Temperature 36.7 C (98.1 F) 05/29/2021 8:36 PM CDT Respiratory Rate 18 05/29/2021 9:31 PM CDT Oxygen Saturation 99% 05/29/2021 9:31 PM CDT Inhaled Oxygen Concentration - - Weight 72.6 kg (160 lb) 05/29/2021 8:36 PM CDT Height 165.1 cm (5' 5 ) 05/29/2021 8:36 PM CDT Body Mass Index 26.63 05/29/2021 8:36 PM CDT Plan of Treatment Health Maintenance Due Date Last Done Comments Hepatitis C Virus (HCV) Screening 1975 Pap Smear 1996 Cervical Cancer Screening (CCS) 2005 HPV/Cotest 2005 Hepatitis B Immunization (3 of 3 - 19+ 3-dose series) 02/28/2015 01/03/2015, 06/14/2014 Colonoscopy 2020 Colorectal Cancer Screening 2020 Influenza Immunization (#1) 04/23/202407/23, 05/25/2018, 07/04/2016, Additional history exists SARS-COV-2 Immunization ( season) 2024 Respiratory Syncytial Virus (RSV) Immunization (Adult) (1 - 1-dose 75+ series) 2050 DTaP/Tdap/Td Immunization Discontinued 01/03/2019 TdaP Immunization Completed 01/03/2019 Discussion re Starting/Frequency of Mammograms Discontinued 12/22/2021, 02/03/2019 Meningococcal Immunization (ACWY) Aged Out No longer eligible based on patient's age to complete this topic Pneumococcal Immunization Combined Aged Out No longer eligible based on patient's age to complete this topic Rotavirus Immunization Aged Out No lo nger eligible based on patient's age to complete this topic Procedures Procedure Name Priority Date/Time Associated Diagnosis Comments JACKY DIAG BILATERAL DIGITAL W CAD W GLADYS Routine 12/22/2021 8:38 AM CDT Mass of right breast, unspecified quadrant from Last 3 Months or Most Recently Relevant to Health Maintenance Results * JACKY DIAG BILATERAL DIGITAL W CAD W GLADYS (12/22/2021 8:38 AM CDT) Anatomical Region Laterality Modality breast Bilateral Mammography 12/22/2021 7:42 AM CDT Narrative 12/22/2021 10:05 AM CDT - JACKY DIAG BILATERAL DIGITAL W CAD W GLADYS - JACKY US BREAST LIMITED JUWAN BILATERAL DIGITAL DIAGNOSTIC MAMMOGRAM 3D/2D WITH CAD WITH MEDIOLATERAL OBLIQUE CRANIOCAUDAL AND BILATERAL ULTRASOUND: 12/22/2021 The study was acquired using digital technology and interpreted from soft copy. Current study was also evaluated with ICAD version 7.2. 2D digital mammographic views, as well as 3D digital tomosynthesis were performed in the CC and MLO projections. CLINICAL: Diagnostic study. Palpable lumps both breasts. No personal history of cancer. No family history of breast cancer. Evaluation of asymmetry in the right breast. Patient also reports bilateral palpable areas. COMPARISONS: Comparison is made to exam dated: 02/03/2019 [facility]. BREAST TISSUE:There are scattered fibroglandular densities in both breasts. FINDINGS: BILATERAL DIAGNOSTIC MAMMOGRAM: There is a subcentimeter mass at the 9 o'clock position of the right breast anteriorly. No other significant masses or calcifications are seen in either breast on the mammogram. No lesions are seen at the palpable areas of concern in the upper outer aspect of either breast. Further evaluation was obtained with sonography. TARGETED BILATERAL BREAST ULTRASOUND: At the 9 o'clock position of the right breast, 1 cm from the nipple, there is a 5 mm cyst likely corresponding to the mammographic finding. No lesions are seen underlying the palpable areas of concern at the 3 o'clock position of the left breast, 7 cm from the nipple or 9 o'clock position of the right breast, 5 cm from the nipple. Some dense breast tissue is present. IMPRESSION: OVERALL STUDY BIRADS: 2 BENIGN There is no mammographic or sonographic evidence of malignancy. A 1 year screening mammogram is recommended. The results and recommendations were discussed with the patient. Electronically signed by: Mirela Garcia M.D. ll/:12/22/2021 09:22:30 Clinical Data Programmer(s): Naty Gallagher)(Kartik), [facility]; Collin Otero RDMS, [facility] letter sent: Normal Exam Reading location: [facility] OVERALL STUDY BIRADS: 2 Benign Procedure Note Mirela Garcia MD - 12/22/2021 - JACKY DIAG BILATERAL DIGITAL W CAD W GLADYS - JACKY US BREAST LIMITED JUWAN BILATERAL DIGITAL DIAGNOSTIC MAMMOGRAM 3D/2D WITH CAD WITH MEDIOLATERAL OBLIQUE CRANIOCAUDAL AND BILATERAL ULTRASOUND: 12/22/2021 The study was acquired using digital technology and interpreted from soft copy. Current study was also evaluated with ICAD version 7.2. 2D digital mammographic views, as well as 3D digital tomosynthesis were performed in the CC and MLO projections. CLINICAL: Diagnostic study. Palpable lumps both breasts. No personal history of cancer. No family history of breast cancer. Evaluation of asymmetry in the right breast. Patient also reports bilateral palpable areas. COMPARISONS: Comparison is made to exam dated: 02/03/2019 [facility]. BREAST TISSUE:There are scattered fibroglandular densities in both breasts. FINDINGS: BILATERAL DIAGNOSTIC MAMMOGRAM: There is a subcentimeter mass at the 9 o'clock position of the right breast anteriorly. No other significant masses or calcifications are seen in either breast on the mammogram. No lesions are seen at the palpable areas of concern in the upper outer aspect of either breast. Further evaluation was obtained with sonography. TARGETED BILATERAL BREAST ULTRASOUND: At the 9 o'clock position of the right breast, 1 cm from the nipple, there is a 5 mm cyst likely corresponding to the mammographic finding. No lesions are seen underlying the palpable areas of concern at the 3 o'clock position of the left breast, 7 cm from the nipple or 9 o'clock position of the right breast, 5 cm from the nipple. Some dense breast tissue is present. IMPRESSION: OVERALL STUDY BIRADS: 2 BENIGN There is no mammographic or sonographic evidence of malignancy. A 1 year screening mammogram is recommended. The results and recommendations were discussed with the patient. Electronically signed by: Mirela Garcia M.D. ll/:12/22/2021 09:22:30 Clinical Data Programmer(s): Naty Gallagher)(M), [facility]; Collin Otero RDMS, [facility] sent: Normal Exam Reading location: [facility] OVERALL STUDY BIRADS: 2 Benign Nella Payne APRN, CNP IMG MAMMO ORDERABLES Abby l Result from Last 3 Months or Most Recently Relevant to Health Maintenance Insurance [place] Care Teams Program Manager Relationship Specialty Start Date End Date David Clark MD [address] [place] [address] PCP - General Family Medicine 08/27/17 Renard Momni [address] [place] [address] Ophthalmology 07/19/18
--- OUTSIDE RECORDS SUMMARY | 2024-10-13 18:27 | XMS_ITS | Clinical Summary ---
Author Organization [facility] Address [address] [place] [address] Care Team Providers Care Micrographics Services Supervisor Name Role Phone David Clark MD Primary Care Provider [phone] Alondra Spivey PT Unavailable Unavaila ble Steven Meek MD Unavailable [phone] Allergies Active Allergy Reactions Criticality Noted Date Comments Acetazolamide Dizziness,Shortness of breath High 10/25/2017 Severe reaction. Could not breathe, move or walk. Severe reaction. Could not breathe, move or walk. Codeine Rash Reaction: Rash, Dorzolamide-Timolol Other (See comments) Low 12/29/2019 Burning sensation, severe per patient Burning sensation, severe per patient Burning eye sensation Shellfish Containing Products Shellfish Derived Other (See comments),Rash,Shor tness of breath,Swelling High 06/13/2018 Medications latanoprost (XALATAN) 0.005 % ophthalmic solution Administer 1 drop into both eyes nightly Active ibuprofen (ADVIL,MOTRIN) 600 mg tablet Take 1 tablet (600 mg total) by mouth every 6 (six) hours as needed for pain Active timoloL maleate 0.5 % drops, once dailyIndications: open angle glaucoma Administer 1 drop into both eyes 2 (two) times a day Active EPINEPHrine 0.3 mg/0.3 mL auto-injection syringe Inject 0.3 mL (0.3 mg total) into the muscle as instructed as needed 1 Active gabapentin (NEURONTIN) 100 mg capsule TAKE 3 CAPSULES BY MOUTH 3 TIMES DAILY [address] (CYMBALTA) 30 mg capsule Take 1 capsule (30 mg total) by mouth daily Active fremanezumab-vfrm (Ajovy Autoinjector) 225 mg/1.5 mL auto-injector subcutaneous auto-injector Inject 1.5 mL (225 mg total) under the skin every 30 (thirty) days Active Simbrinza 1-0.2 % drops,suspension Administer 1 drop into affected eye(s) 3 (three) times a day 3 Active mirabegron ER (MYRBETRIQ) 25 mg tablet extended release 24 hrIndications:Uri nary Urge Incontinence Take 1 tablet (25 mg total) by mouth daily 30 tablet 3 3 Active solifenacin (VESIcare) 10 mg tabletIndications :Urinary Urge Incontinence Take 1 tablet (10 mg total) by mouth daily 30 tablet 3 4 Active Active Problems Problem Noted Date Diagnosed Date Mixed stress and urge urinary incontinence 05/31 Myofascial pain 05/31/2023 Menorrhagia with irregular cycle 05/27/2022 Overview (05/27/2022): Added automatically from request for surgery [id number] Unstable ankle 03/25/2020 Congenital dislocation of left radial head 03/20 Congenital dislocation of radial head 03/20/2020 Globus sensation 02/26/2020 Assessment & Plan (02/26/2020 2:59 PM CDT): Years of globus sensation and dysphagia to liquids and solids which is intermittent. Prior ENT, rheum, eval. discusssed likelihood of functional problem but will egd at time od colonoscopy. Constipation 02/26/2020 Assessment & Plan (02/26/2020 3:01 PM CDT): Lifelong but much worse over last year. No blood and no systemic sx/signs. Her genetic syndome has possibility of anal stenosis aspart of phenotype. wiill colooscope and then recap. Dysphagia 02/26/2020 Overview (02/26/2020): Added automatically from request for surgery [id number] Chronic constipation 02/26/2020 Overview (02/26/2020): Added automatically from request for surgery [id number] Lumbar strain, initial encounter 12/31/2018 Left sided sciatica 12/31/2018 Immunizations Immunization Administration Dates Next Due Hep B Vaccine 01/03/2015,06/14/2014 Influenza, Quadrivalent, Spl it, Intramuscular 08/01/2019,07/04/2016,06/14/2014 Influenza, Quadrivalent, Spl it, Preservative Free, Intramuscular 05/25/2018 Tdap 01/03/2019 Surgical History Surgery Date Site/Laterality Comments KNEE ARTHROSCOPY 08/23/2010 - 08/22/2011 Left Arthroscopy knee OTHER SURGICAL HISTORY ulnar nerve release, right OTHER SURGICAL HISTORY first dorsal compartment release- right 05/30/15 COLONOSCOPY 03/11/2020 UPPER GASTROINTESTINAL ENDOSCOPY 03/11/2020 TUBAL LIGATION 03/21/1999 CARPAL TUNNEL RELEASE Right GLAUCOMA SURGERY CATARACT EXTRACTION 08/23/2018 - 08/22/2019 Right EYE SURGERY 08/23/2017 - 08/22/2018 Right Ketan valve ANKLE SURGERY Right Medical History Medical History Date Comments Hx Other Medical Headache, migra ine Asthma well controlled Hx Other Medical mitral valve pr olapse, Axenfeld-Rosetta syndrome Sleep apnea no CPAP, can not tolerate Chronic constipation Dysphagia resolved GERD (gastroesophageal reflux disease) [place] with TUMs PRN Osteoarthritis Migraines Anemia Glaucoma Depression Insomnia Chest pain worse with caffi ne, denies dyphoresis SOB, N&V, last 10 min, not related to activity, occurs every 6 months, told in ER at age 26 had MVP, [place] (hard of hearing) ananth aids PONV (postoperative nausea and vomiting) Motion sickness Anxiety Family History Medical History Relation Name Comments PONV Daughter Diabetes Other 1 Family history of Diabetes mellitus; Lung disease Other 1 Stroke Other 1 Heart disease Other 2 Family history of Heart disease; Hypertension Other 3 Family history of Hypertension; Other Other 4 Family history of Lupus erythematosus; Lung disease Other 5 Family history of Lung problems; Relation Name Status Comments Daughter Other 1 Other 2 Other 3 Other 4 Other 5 Social History Tobacco Use Types Packs/Day Years Used Date Smoking Tobacco: Every Day Cigarettes 0.5 21.8 Started: 1999; Last attempted to quit: 06/13/2021 Smokeless Tobacco: Never Tobacco Cessation:Ready to Q uit: Not Asked; Counseling Given: Not Answered Alcohol Use Standard Drinks/Week Comments Yes 0 (1 standard drink = 0.6 oz pur e alcohol) socially AUDIT-C Answer Date Recorded Q1: How often do you have a drink containing alc ohol? Monthly or less 07/01/2022 Q2: How many drinks containi ng alcohol do you have on a typical day when you are drinking? 1 or 2 07/01/2022 Frequency of Binge Drinking Not on file 04/2022 Hunger Vital Sign Answer Date Recorded Within the past 12 months, y ou worried that your food would run out before you got the money to buy more. Patient declined Within the past 12 months, t he food you bought just didn't last and you didn't have money to get more. Patient declined 04/2023 Personal Safety Answer Date Recorded Have you ever been in or are you currently in a harmful physical or emotional relationship or is someone making you feel afraid or unsafe? Denies 04/30/2023 Comments No Sex and Gender Information Value Date Recorded Sex Assigned at Not on file Legal Sex Female 4:33 AM DIRECTOR INDUSTRIAL RELATIONS Gender Identity Not on file Sexual Orientation Not on file Obstetrics History Para Term AB IAB SAB Ectopic Multiple Livin g Live Births 5 4 4 1 4 Date Outcome GA Total Labor Labor/2nd/3rd Weight Sex Type Anes PTL Mere A1 A5 Name Clin AB Term Term Term Term Last Filed Vital Signs Vital Sign Reading Time Taken Comments Blood Pressure 129/83 05/31/2023 12:46 PM CDT Pulse 72 05/31/2023 12:46 PM CDT Temperature 37 C (98.6 F) 05/31/2023 12:46 PM CDT Respiratory Rate 18 04/30/2023 4:00 AM CDT Oxygen Saturation 99% 05/31/2023 12: 46 PM CDT Inhaled Oxygen Concentration - - Weight 77.1 kg (169 lb 14.4 oz) 023 12:46 PM CDT Height 165.1 cm (5' 5 ) 04/30/2023 12:3 4 AM CDT Body Mass Index 28.27 04/30/2023 12:34 AM CDT Plan of Treatment Health Maintenance Due Date Last Done Comments Breast Cancer Screening-Mammogram 1975 Cervical Cancer Screening 1975 Depression Screening 1975 Hepatitis C Screening 1975 Regular Well Visit/Exam 18-64 1993 Pneumococcal vaccine <65 (1 of 2 - PCV) 1994 Influenza Vaccine (#1) 2024 2, 08/01/2019, 05/25/2018, Additional history exists DTaP/Tdap/Td Vaccine (2 - Td or Tdap) 01/03/2029 01/03/2019 Colon Cancer Screening-Colonoscopy 03/11/20302019 Hepatitis B Screening Completed 01/03/2015, 014 Medical Devices Implanted Type Area Food Prep Worker Device Identifier Shelf Expiration Date Model / Serial / Lot Acrysof Lens Implant Right: Eye [employer] [id number] / / Description:Ahmed Glaucoma V alve in right eye 06/30/2018 Ahmed Glaucoma Valve Eye FP7 / [id number] / [id number] [employer] Ar-1688-Cp Internalbrace Fibertape Kit Arthroscopic Fixation Collagen - S0 - [id number] Implanted:Qty: 1 on 06/26/2021 by Douglas Jones MD at [facility] [place] Right: Ankle [employer] 10/20/2022 AR-1688-CP / 0 / [id number] [employer] Ar-8990st Arthrex Dx Fibertak Needle [place] Suture Sterile Latex Free - S0 - [id number] Implanted:Qty: 1 on 06/26/2021 by Douglas Jones MD at [facility] [place] Right: Ankle [employer] 04/22/2026 AR-8990ST / 0 / [id number] Procedures Procedure Name Priority Date/Time Associated Diagnosis Comments COLONOSCOPY 03/11/2020 9:27 AM CDT from Last 3 Months or Most Recently Relevant to Health Maintenance Results * COLONOSCOPY (03/11/2020 9:27 AM CDT) Anatomical Region Laterality Modality Other Narrative Procedure Note Vikash Mendoza MD - 03/11/2020 9:27 AM CDT [facility] Patient Name: Jane Brown Procedure Date: 03/11/2020 9:27 AM Date of : 1975 Admit Type: Outpatient Age: 44 Gender: Female Attending MD: Vikash Mendoza M.D. Room: [facility] ENDOSCOPY ROOM 2 Note Status: Finalized Patient Profile: Refer to note in patient chart for documentation of history and physical. Procedure: Colonoscopy Indications: This is the patient's first colonoscopy, Change in bowel habits, Chronic idiopathic constipation Referring MD: David Clark M.D. Providers: Vikash Mendoza M.D. Impression: - One 8 mm polyp in the transverse colon, removedwith a hot biopsy forceps. Resected and retrieved. - One 20 mm polyp in the descending colon, removedwith a hot snare. Resected and retrieved. Injected. - One 12 mm polyp in the sigmoid colon, removed witha hot snare. Resected and retrieved. - One 5 mm polyp in the sigmoid colon, removed witha hot biopsy forceps. Resected and retrieved. - Diverticulosis in the sigmoid colon. Recommendation: - Discharge patient to home. - Resume previous diet. - Continue present medications. - Await pathology results. - Repeat colonoscopy in 6 months for surveillance. - Return to primary care physician as previously scheduled. Medicines: Propofol per Anesthesia Complications: No immediate complications. Estimated Blood Loss: Estimated blood loss: none. Procedure: Pre-Anesthesia Assessment: - This assessment was completed [Time of Assessment] prior to the administration of sedation. The benefits, risks and alternatives of theprocedure and sedation were discussed and informed consent was obtained. All questions were answered. Please referto the signed informed consent document in the medical record. The scope was passed under direct vision.The Colonoscope [id number] was introducedthrough the anus and advanced to the the cecum, identifiedby appendiceal orifice and ileocecal valve. Bowel prepwas administered using a single dose. The bowelpreparation used was Miralax. The bowel preparation used was bisacodyl tablets. Findings: The perianal and digital rectal examinations were normal. A 8 mm polyp was found in the transverse colon. The polyp wassessile. The polyp was removed with a hot biopsy forceps. Resection andretrieval were complete. Verification of patient identification for thespecimen was done by the physician and nurse using the patient's name andbirth date. Estimated blood loss was minimal. A 20 mm polyp was found in the descending colon. The polyp wassessile. The polyp was removed with a hot snare. Resection and retrieval were complete. Verification of patient identification for the specimen was done by the physician and nurse using the patient's name and birthdate. Area was successfully injected with 3 mL of a 1:10,000 solution of epinephrine for lesion assessment, and this injection appeared tolift the lesion adequately. Estimated blood loss was minimal. A 12 mm polyp was found in the sigmoid colon. The polyp was pedunculated. The polyp was removed with a hot snare. Resection and retrieval were complete. Verification of patient identification forthe specimen was done by the physician and nurse using the patient's name and date. Estimated blood loss was minimal. A 5 mm polyp was found in the sigmoid colon. The polyp was sessile.The polyp was removed with a hot biopsy forceps. Resection and retrieval were complete. Verification of patient identification for thespecimen was done by the physician and nurse using the patient's name andbirth date. Estimated blood loss was minimal. Multiple small and large-mouthed diverticula were found in thesigmoid colon. The exam was otherwise normal throughout the examined colon. Electronically signed by Vikash Mendoza M.D. Vikash Mendoza M.D. 03/11/2020 11:19:10 AM Number of Addenda: 0 Note Initiated On: 03/11/2020 9:27 AM Procedure Code(s): --- Professional --- 18173, Colonoscopy, flexible; with removal of tumor(s), polyp(s), or other lesion(s) by snare technique 06599, 59, Colonoscopy, flexible; with removal of tumor(s), polyp(s),or other lesion(s) by hot biopsy forceps 39415, Colonoscopy, flexible; with directed submucosal injection(s),any substance Diagnosis Code(s): --- Professional --- K57.30, Diverticulosis of large intestine without perforation orabscess without bleeding K59.04, Chronic idiopathic constipation R19.4, Change in bowel habit D12.5, Benign neoplasm of sigmoid colon D12.4, Benign neoplasm of descending colon D12.3, Benign neoplasm of transverse colon (hepatic flexure orsplenic flexure) CPT copyright 2017 [employer]. All rights reserved. The codes documented in this report are preliminary and upon senior php web developer reviewmay be revised to meet current compliance requirements. Recognized by the [employer] for promoting quality in endoscopy Vikash Mendoza MD ENDOSCOPY PROCEDURES Final Re sult from Last 3 Months or Most Recently Relevant to Health Maintenance Insurance [facility] Advance Directives For more information, please contact: [phone] * Full Code (Latest Code Status on File) Date Activated Date Inactivated Comments 03/11/2020 9:28 AM 03/11/2020 4:18 PM * Full Code Date Activated Date Inactivated Comments 03/11/2020 9:28 AM 03/11/2020 9:28 AM Care Teams Micrographics Services Supervisor Relationship Specialty Start Date End Date David Clark MD PCP - General 10/19/17 Alondra Spivey, PT Physical Therapist Physical Therapy 02/02/22 Steven Meek MD [address] [place] [address] Consulting Physician Obstetrics and Gynecology 07/08/22
--- OUTSIDE RECORDS SUMMARY | 2024-10-13 18:27 | XMS_ITS | Referral Summary ---
Author Organization [facility] Address [address] [place] [address] Care Team Providers Care Hot Stick Worker Name Role Phone David Clark MD Primary Care Provider [phone] Alondra Spivey PT Unavailable Unavaila ble Steven Meek MD Unavailable [phone] Allergies Active Allergy Reactions Criticality Noted Date [...] (05/27/2022): Added automatically from request for surgery [id number] Unstable ankle 03/25/2020 Congenital dislocation of left [...] (02/26/2020): Added automatically from request for surgery [id number] Chronic constipation 02/26/2020 Overview (02/26/2020): Added automatically from request for surgery [id number] Lumbar strain, initial encounter 12/31/2018 Left sided sciatica 12/31/2018 Immunizations Immunization Administration Dates Next Due Hep B Vaccine 01/03/2015,06/14/2014 Influenza, Quadrivalent, Spl it, Intramuscular 08/01/2019,07/04/2016,06/14/2014 Influenza, Quadrivalent, Spl it, Preservative Free, Intramuscular 05/25/2018 Tdap 01/03/2019 Social History Tobacco Use Types Packs/Day Years [...] on file 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 Gender Identity Not on file Sexual Orientation [...] 04/30/2023 12:34 AM CDT Plan of Treatment Not on file Medical Devices Implanted Type Area Ug Designer Device Identifier Shelf Expiration Date Model / Serial / Lot Acrysof Lens Implant Right: Eye [employer] [id number] / / Description:Ahmed Glaucoma V alve in right eye 06/30/2018 Ahmed Glaucoma Valve Eye FP7 / [id number] / [id number] [employer] Ar-1688-Cp Internalbrace Fibertape Kit Arthroscopic Fixation Collagen - S0 - [id number] Implanted:Qty: 1 on 06/26/2021 by Douglas Jones MD at [facility] [place] Right: Ankle [employer] 10/20/2022 AR-1688-CP / 0 / [id number] [employer] Ar-8990st Arthrex Dx Fibertak Needle [place] Suture Sterile Latex Free - S0 - [id number] Implanted:Qty: 1 on 06/26/2021 by Douglas Jones MD at [facility] [place] Right: Ankle [employer] 04/22/2026 AR-8990ST / 0 / [id number] Procedures Procedure Name Priority Date/Time Associated Diagnosis Comments COLONOSCOPY 03/11/2020 9:27 AM CDT from Last 3 Months or Most Recently Relevant to Health Maintenance Results * COLONOSCOPY (03/11/2020 9:27 AM CDT) Anatomical Region Laterality Modality Other Narrative Procedure Note Vikash Mendoza MD - 03/11/2020 9:[address] [facility] Patient Name: Jane Brown Procedure Date: 03/11/2020 9:27 AM Date of : 1975 Admit Type: Outpatient Age: 44 Gender: Female Attending MD: Vikash Mendoza M.D. Room: [facility] ENDOSCOPY ROOM 2 Note Status: Finalized Patient [...] scope was passed under direct vision.The Colonoscope [id number] was introducedthrough the anus and advanced to [...] 9:27 AM Procedure Code(s): --- Professional --- 12480, Colonoscopy, flexible; with removal of tumor(s), polyp(s), or other lesion(s) by snare technique 12642, 59, Colonoscopy, flexible; with removal of tumor(s), polyp(s),or other lesion(s) by hot biopsy forceps 72757, Colonoscopy, flexible; with directed submucosal injection(s),any substance Diagnosis Code(s): --- Professional --- K57.30, Diverticulosis of large intestine without perforation orabscess without bleeding K59.04, Chronic idiopathic constipation R19.4, Change in bowel habit D12.5, Benign neoplasm of sigmoid colon D12.4, Benign neoplasm of descending colon D12.3, Benign neoplasm of transverse colon (hepatic flexure orsplenic flexure) CPT copyright 2017 [employer]. All rights reserved. The codes documented in this report are preliminary and upon medical record coder reviewmay be revised to meet current compliance requirements. Recognized by the [employer] [employer] for promoting quality in endoscopy Vikash Mendoza MD ENDOSCOPY PROCEDURES Final Re sult from Last 3 Months or Most Recently Relevant to Health Maintenance Insurance [facility] Advance Directives For more information, please contact: [phone] * Full Code (Latest Code Status on File) Date Activated Date Inactivated Comments 03/11/2020 9:28 AM 03/11/2020 4:18 PM * Full Code Date Activated Date Inactivated Comments 03/11/2020 9:28 AM 03/11/2020 9:28 AM Care Teams Hot Stick Worker Relationship Specialty Start Date End Date David Clark MD PCP - General 10/19/17 Alondra Spivey, PT Physical Therapist Physical Therapy 02/02/22 Steven Meek MD [address] [place] [address] [address] [facility] [address] [place] [address] Consulting Physician Obstetrics and Gynecology 07/08/22
--- OUTSIDE RECORDS SUMMARY | 2024-10-13 18:27 | XMS_ITS | Patient Health Summary ---
Author Organization [facility] Address [address] [place] [address] Care Team Providers Care Melting Operator Name Role Phone David Clark MD Primary Care Provider [phone] Note from [facility][note 3],non-owned Affiliates and Associated Physician Practices is amultiple site organization consisting of ambulatory clinics and hospital sitesin [place], [place], [place] and [place]. This disclosure is being madepursuant to the Care Everywhere program and may not contain all information available regarding this patient. Last updated 18.[facility] Allergies * Acetazolamide(Shortness of Breath) -High Criticality * Codeine(Urticaria) -Medium Criticality * Codeine(Urticaria) -Medium Criticality * Dorzolamide-Timolol(Other) -Medium Criticality * Shellfish-Derived Products(Shortness of Breath,Rash,Swelling,Other) -High Criticality Medications * Be aware that medications may not be up to date on this document. Alwaysverify current medications with the patient. * ibuprofen (MOTRIN) 600 MG tablet Take 1 (one) tablet by mouth every 6 hours as needed for Pain * EPINEPHrine (EPIPEN) 0.3 MG/0.3ML auto-injector pen(Started 10/10/2020) Inject 0.3 mL into muscle as needed for Anaphylaxis * gabapentin (NEURONTIN) 100 MG capsule(Started 05/27/2021) Take 3 (three) capsules by mouth 3 times daily 3 refills by 05/27/2022 * DULoxetine (Cymbalta) 30 MG capsule(Started 07/20/2022) Take 1 (one) capsule by mouth once daily * Fremanezumab-vfrm (Ajovy) 225 MG/1.5ML SOAJ(Started 09/07/2022) Inject 225 mg subcutaneously every 30 days 5 refills by 09/07/2023 * phenazopyridine (Pyridium) 100 MG tablet Take 1 (one) tablet by mouth 3 times daily as needed for Pain * docusate sodium (Colace) 100 MG capsule(Started 03/11/2023) TAKE 1 CAPSULE BY MOUTH TWICE A DAY FOR 14 DAYS * solifenacin (Vesicare) 10 MG tablet(Started 08/30/2023) Take 1 (one) tablet by mouth once daily * bimatoprost (Lumigan) 0.01 % ophth solution(Started 03/14/2024) Instill 1 (one) drop into right eye at bedtime 4 refills by 03/14/2025 * brimonidine (Alphagan) 0.2 % ophthalmic solution(Started 03/31/2024) Instill 1 (one) drop into both eyes 3 times daily 4 refills by 03/31/2025 * prednisoLONE acetate (Pred Forte) 1 % ophthalmic suspension(Started 03/31/2024) PLEASE SEE ATTACHED FOR DETAILED DIRECTIONS * timolol maleate (Timoptic) 0.5 % ophthalmic solution(Started 09/15/2024) Instill 1 (one) drop into both eyes 2 times daily 11 refills by 09/15/2025 Ended Medications* timolol maleate (Timoptic) 0.5 % ophthalmic solution(Started 02/11/2024)(Discontinued) Instill 1 (one) drop into both eyes 2 times daily 11 refills by 02/10/2025 Active Problems Problem Noted Date Diagnosed Date [...] of larynx 10/14/2021 Routine health maintenance 07/11/2021 Personal history of COVID-19 07/11/2021 Osteoarthritis 07/11/2021 Migraine headache 07/11/2021 Depression, recurrent 07/11/2021 Chronic pansinusitis 07/11/2021 Centrilobular emphysema 07/11/2021 Body mass index (BMI) of 26.0-26.9 in adult 06/23 Restless legs syndrome 07/11/2021 Neuropathy 05/27/2021 Suspected condition 04/24/2021 Family history of aortic aneurysm 07/24/2020 Chronic constipation 02/26/2020 Dysphagia 02/26/2020 Nuclear sclerotic cataract, right 06/19/2019 Mixed conductive and sensorineural hearing loss, bilateral 03/01/2019 Tinnitus, bilateral 12/13/2018 Vitamin D insufficiency 09/14/2018 PNAR (perennial non-allergic rhinitis) 9 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 03/08/2018 Facial asymmetry 02/25/2018 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 (FLUZONE; FLULAVAL; FLUARIX; AFLURIA QUADRIVALENT; 6MO+), 0.5 ML (IIV4)(Given 05/28/2022, 05/25/2018) * TDAP (7yrs+)(Given 01/03/2019) Social History Tobacco Use Types Packs/Day Years [...] Comments Blood Pressure 146/86 10/26/2023 2:34 PM HVAC/R INSTRUCTOR Pulse 76 10/26/2023 2:34 PM HVAC/R INSTRUCTOR Temperature 36.2 C (97.1 F) 09/22/2023 11:39 AM HVAC/R INSTRUCTOR Respiratory Rate 18 09/22/2023 11:39 AM HVAC/R INSTRUCTOR Oxygen Saturation 98% 10/26/2023 2:34 PM HVAC/R INSTRUCTOR Inhaled Oxygen Concentration 21% 11/07/2019 8 :00 AM CDT Weight 77.1 kg (170 lb) 10/26/2023 2:34 PM HVAC/R INSTRUCTOR Height 165.1 cm (5' 5 ) 10/26/2023 2:34 PM HVAC/R INSTRUCTOR Body Mass Index 28.29 10/26/2023 2:34 PM HVAC/R INSTRUCTOR Medical Devices Implanted Type Area Outreach Associate Device Identifier Shelf Expiration Date Model / Serial / Lot Drain Glcm Thk.9mm Blnt Tpr [facility] Flxb - [id number] Implanted:Qty: 1 on 06/30/2018 by Renard Momin MD at [facility] Right: Eye [employer] 05/16/2020 7 / [id number] / [id number] Graft Tissue Ttpl Ioptch Sclr .8x.5cm - [id number] Implanted:Qty: 1 on 06/30/2018 by Renard Momin MD at [facility] Right: Eye [employer] 03/22/2023 [id number] / [id number] / [id number] Iol Implanted:Qty: 1 on 06/19/2019 by Renard Momin MD at [facility] Right: Eye 09/22/2023 [id number] 19.5D / [id number] / Procedures * RETINAL ANALYSIS OCT(Performed 09/18/2024) Performed for Cystoid macular edema of right eye * RETINAL ANALYSIS OCT(Performed 04/19/2024) Performed for Cystoid macular edema of right eye * RETINAL ANALYSIS OCT(Performed 03/15/2024) Performed for Cystoid macular edema of right eye * RETINAL ANALYSIS OCT(Performed 02/11/2024) Performed for Acute anterior uveitis of right eye, Cystoid macular edema of right eye * RETINAL ANALYSIS OCT(Performed 02/02/2024) Performed for Cystoid macular edema of right eye * INTRAVITRAL INJECTION PHARMCOLOGIC RIGHT EYE(Performed 10/01/2023) Performed for Cystoid macular edema of right eye * CT HEAD WO CONTRAST(Performed 09/22/2023) Performed for Occipital headache * HCG BETA BLOOD QUANTITATIVE(Performed 09/22/2023) * MAGNESIUM BLOOD(Performed 09/22/2023) * COMPREHENSIVE METABOLIC PANEL(Performed 09/22/2023) * CBC W AUTO DIFFERENTIAL(Performed 09/22/2023) * RETINAL ANALYSIS OCT(Performed 09/22/2023) Performed for Cystoid macular edema of right eye * YAG CAPSULOTOMY RIGHT EYE(Performed 06/10/2023) Performed for Right posterior capsular opacification * RETINAL ANALYSIS OCT(Performed 05/24/2023) Performed for Cystoid macular edema of right eye * INTRAVITRAL INJECTION PHARMCOLOGIC RIGHT EYE(Performed 04/19/2023) Performed for Cystoid macular edema of right eye * RETINAL ANALYSIS OCT(Performed 04/19/2023) Performed for Cystoid macular edema of right eye * SORENSEN AUTO VISUAL FIELD EXTENDED(Performed 03/16/2023) Performed for Glaucoma, secondary, right, severe stage * FUNDUS PHOTO BOTH EYES(Performed 03/16/2023) Performed for Glaucoma, secondary, right, severe stage * RETINAL ANALYSIS OCT(Performed 02/15/2023) Performed for CME (cystoid macular edema), right * OPH OCT TEST SLU(Performed 12/18/2022) Performed for CME (cystoid macular edema), right * PROC OPH INJECTION PROCEDURE(Performed 11/23/2022) Performed for CME (cystoid macular edema), right * OPH OCT TEST SLU(Performed 11/23/2022) Performed for CME (cystoid macular edema), right * OPH OCT TEST SLU(Performed 10/23/2022) Performed for Glaucoma, secondary, right, severe stage * OPH OCT TEST SLU(Performed 09/21/2022) Performed for CME (cystoid macular edema), right * OPH OCT TEST SLU(Performed 08/10/2022) Performed for CME (cystoid macular edema), right * OPH OCT TEST SLU(Performed 07/20/2022) Performed for CME (cystoid macular edema), right * OPH VISUAL FIELD TEST SLU(Performed 06/25/2022) Performed for Glaucoma, secondary, right, severe stage * CROCKER/ACCOUNTS PAYABLE PROFESSIONAL (ABDIFATAH) ANTIBODY IGG(Performed 06/11/2022) Performed for Polyarthralgia * SS-A (SJOGREN'S) 52+60 ANTIBODIES(Performed 06/11/2022) Performed for Polyarthralgia * SS-B (SJOGREN'S) ANTIBODY(Performed 06/11/2022) Performed for Polyarthralgia * CROCKER (SM) ANTIBODY ABDIFATAH(Performed 06/11/2022) Performed for Polyarthralgia * DNA ANTIBODY DS CRITHIDIA TITER(Performed 06/11/2022) Performed for Polyarthralgia * COMPLEMENT C4(Performed 06/11/2022) Performed for Polyarthralgia * COMPLEMENT C3(Performed 06/11/2022) Performed for Polyarthralgia * ARTIE BLOOD SCREEN W/REFLEX TITER(Performed 06/11/2022) Performed for Polyarthralgia * URINALYSIS W/MICROSCOPIC REFLEX TO CULTURE(Performed 06/11/2022) Performed for Polyarthralgia * PROTEIN CREATININE RATIO URINE RANDOM PNL(Performed 06/11/2022) Performed for Polyarthralgia * HEPATIC FUNCTION PANEL(Performed 06/11/2022) Performed for Polyarthralgia * CREATININE BLOOD(Performed 06/11/2022) Performed for Polyarthralgia * CBC W AUTO DIFFERENTIAL(Performed 06/11/2022) Performed for Polyarthralgia * RHEUMATOID FACTOR BLOOD QUANTITATIVE(Performed 06/11/2022) Performed for Polyarthralgia * CYCLIC CITRULLINATED PEPTIDE(CCP) AB IGG(Performed 06/11/2022) Performed for Polyarthralgia * CK BLOOD(Performed 06/11/2022) Performed for Polyarthralgia * ALDOLASE(Performed 06/11/2022) Performed for Polyarthralgia * OPH OCT TEST SLU(Performed 06/10/2022) Performed for Cystoid macular edema of right eye, Chorioretinal scar of left eye * OPH OCT TEST SLU(Performed 04/29/2022) Performed for Cystoid macular edema of right eye * TSH REFLEX FREE T4(Performed 04/24/2022) Performed for Migraine without status migrainosus, not intractable, unspecified migraine type * T4 FREE(Performed 04/24/2022) Performed for Migraine without status migrainosus, not intractable, unspecified migraine type * FOLATE(Performed 04/24/2022) Performed for Migraine without status migrainosus, not intractable, unspecified migraine type * VITAMIN B12(Performed 04/24/2022) Performed for Migraine without status migrainosus, not intractable, unspecified migraine type * ID INJ INTRAVITREAL PHARMCOLOGIC RT(Performed 04/13/2022) Performed for CME (cystoid macular edema), right * OPH OCT TEST SLU(Performed 04/06/2022) Performed for Cystoid macular edema of right eye * ID INJ INTRAVITREAL PHARMCOLOGIC RT(Performed 03/02/2022) Performed for Cystoid macular edema of right eye * OPH OCT TEST SLU(Performed 03/02/2022) Performed for Cystoid macular edema of right eye * PATHOLOGY/CYTOLOGY REPORT ORDER(Performed 02/05/2022) * ID PUNCH BX SKIN EA SEP ADDL(Performed 01/20/2022) Performed for Small fiber neuropathy * ID PUNCH BX SKIN SINGLE LESION(Performed 01/20/2022) Performed for Small fiber neuropathy * OPH OCT TEST SLU(Performed 01/12/2022) Performed for Cystoid macular edema of right eye * OPH OCT TEST SLU(Performed 12/23/2021) Performed for Glaucoma, secondary, right, severe stage * OPH VISUAL FIELD TEST SLU(Performed 12/23/2021) Performed for Glaucoma, secondary, right, severe stage * ID POLYSOM 6/> YRS 4/> RAMIRO(Performed 11/03/2021) Performed for Axenfeld-Rosetta syndrome, Periodic limb movement disorder (PLMD), UARS (upper airway resistance syndrome), Hypersomnia due to medical condition * MRI BRAIN WWO CONTRAST(Performed 10/21/2021) Performed for Phantosmia, Vertigo, Mixed conductive and sensorineural hearing loss of both ears * CREATININE - POCT INTERFACED(Performed 10/21/2021) * OPH OCT TEST SLU(Performed 10/07/2021) Performed for Cystoid macular edema of right eye, Chorioretinal scar of left eye * CT SINUS WO CONTRAST(Performed 08/12/2021) Performed for Chronic pansinusitis, Parosmia, Phantosmia * OPH OCT TEST SLU(Performed 08/08/2021) Performed for Cystoid macular edema of right eye * ID INJ INTRAVITREAL PHARMCOLOGIC RT(Performed 07/28/2021) Performed for Cystoid macular edema of right eye * OPH OCT TEST SLU(Performed 07/25/2021) Performed for Cystoid macular edema of right eye * LAB MISC TEST(Performed 05/27/2021) Performed for Neuropathy, Restless legs syndrome (RLS) * TRANSFERRIN(Performed 05/27/2021) Performed for Neuropathy, Restless legs syndrome (RLS) * FERRITIN(Performed 05/27/2021) Performed for Neuropathy, Restless legs syndrome (RLS) * IRON BLOOD(Performed 05/27/2021) Performed for Neuropathy, Restless legs syndrome (RLS) * OPH OCT TEST SLU(Performed 05/21/2021) Performed for Cystoid macular edema of right eye * OPH VISUAL FIELD TEST SLU(Performed 05/09/2021) Performed for Glaucoma, secondary, right, severe stage * AMB REFERRAL TO NEUROLOGY(Performed 04/17/2021) Performed for Migraine without status migrainosus, not intractable, unspecified migraine type * ID INJ INTRAVITREAL PHARMCOLOGIC RT(Performed 03/12/2021) Performed for Cystoid macular edema, unspecified laterality * OPH OCT TEST SLU(Performed 03/12/2021) Performed for Cystoid macular edema, unspecified laterality * OPH OCT TEST SLU(Performed 10/30/2020) Performed for Peripheral retinal scars, unspecified laterality * LAB MISC TEST(Performed 07/23/2020) Performed for Axenfeld-Rosetta syndrome, 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, Retinal pigment epithelium abnormality, Facial asymmetry * AUDIOLOGY/TYMPANOMETRY ORDER(Performed 06/11/2020) * OPH OCT TEST SLU(Performed 05/24/2020) Performed for Glaucoma, secondary, right, severe stage * XR HIP LEFT 2VW OR MORE(Performed 01/30/2020) Performed for ESR raised, Arthralgia, unspecified joint, Vitamin D deficiency, Livedo reticularis * XR HIP RIGHT 2VW OR MORE(Performed 01/30/2020) Performed for ESR raised, Arthralgia, unspecified joint, Vitamin D deficiency, Livedo reticularis * XR FOOT RIGHT WT BEARING 3VW(Performed 01/30/2020) Performed for ESR raised, Arthralgia, unspecified joint, Vitamin D deficiency, Livedo reticularis * XR FOOT LEFT WT BEARING 3VW(Performed 01/30/2020) Performed for ESR raised, Arthralgia, unspecified joint, Vitamin D deficiency, Livedo reticularis * XR HAND RIGHT 3VW OR MORE(Performed 01/30/2020) Performed for ESR raised, Arthralgia, unspecified joint, Vitamin D deficiency, Livedo reticularis * XR HAND LEFT 3VW OR MORE(Performed 01/30/2020) Performed for ESR raised, Arthralgia, unspecified joint, Vitamin D deficiency, Livedo reticularis * XR SI JOINTS 3VW OR MORE(Performed 01/30/2020) Performed for ESR raised, Arthralgia, unspecified joint, Vitamin D deficiency, Livedo reticularis * URINALYSIS W/MICROSCOPIC NO CULTURE(Performed 01/30/2020) Performed for ESR raised, Arthralgia, unspecified joint, Vitamin D deficiency, Livedo reticularis * BETA-2 GLYCOPROTEIN 1 ANTIBODY IGG/IGM PANEL(Performed 01/30/2020) Performed for Arthralgia, unspecified joint, ESR raised, Vitamin D deficiency, Livedo reticularis, Axenfeld-Rosetta syndrome, Glaucoma, secondary, right, severe stage, 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, Retinal pigment epithelium abnormality, Facial asymmetry, 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, Nuclear sclerotic cataract, right * COMPLEMENT ACTIVITY TOTAL (CH50)(Performed 01/30/2020) Performed for Arthralgia, unspecified joint, ESR raised, Vitamin D deficiency, Livedo reticularis * SS-A (SJOGREN'S) 52+60 ANTIBODIES(Performed 01/30/2020) Performed for Arthralgia, unspecified joint, ESR raised, Vitamin D deficiency, Livedo reticularis * VITAMIN D 25-HYDROXY(Performed 01/30/2020) Performed for Vitamin D deficiency * ERYTHROCYTE SEDIMENTATION RATE(Performed 01/30/2020) Performed for ESR raised, Arthralgia, unspecified joint, Vitamin D deficiency, Livedo reticularis * C-REACTIVE PROTEIN(Performed 01/30/2020) Performed for ESR raised, Arthralgia, unspecified joint, Vitamin D deficiency, Livedo reticularis * COMPREHENSIVE METABOLIC PANEL(Performed 01/30/2020) Performed for ESR raised, Arthralgia, unspecified joint, Vitamin D deficiency, Livedo reticularis * CBC W AUTO DIFFERENTIAL(Performed 01/30/2020) Performed for ESR raised, Arthralgia, unspecified joint, Vitamin D deficiency, Livedo reticularis * CK BLOOD(Performed 01/30/2020) Performed for ESR raised, Arthralgia, unspecified joint, Vitamin D deficiency, Livedo reticularis * LDH BLOOD(Performed 01/30/2020) Performed for ESR raised, Arthralgia, unspecified joint, Vitamin D deficiency, Livedo reticularis * ALDOLASE(Performed 01/30/2020) Performed for ESR raised, Arthralgia, unspecified joint, Vitamin D deficiency, Livedo reticularis * RHEUMATOID FACTOR BLOOD QUANTITATIVE(Performed 01/30/2020) Performed for ESR raised, Arthralgia, unspecified joint, Vitamin D deficiency, Livedo reticularis * CYCLIC CITRUL PEPTIDE ANTIBODY IGG/IGA (CCP)(Performed 01/30/2020) Performed for ESR raised, Arthralgia, unspecified joint, Vitamin D deficiency, Livedo reticularis * LUPUS ANTICOAGULANT PANEL(Performed 01/30/2020) Performed for ESR raised, Arthralgia, unspecified joint, Vitamin D deficiency, Livedo reticularis * CARDIOLIPIN ANTIBODY IGM(Performed 01/30/2020) Performed for ESR raised, Arthralgia, unspecified joint, Vitamin D deficiency, Livedo reticularis * CARDIOLIPIN ANTIBODY IGG(Performed 01/30/2020) Performed for ESR raised, Arthralgia, unspecified joint, Vitamin D deficiency, Livedo reticularis * CARDIOLIPIN ANTIBODY IGA(Performed 01/30/2020) Performed for ESR raised, Arthralgia, unspecified joint, Vitamin D deficiency, Livedo reticularis * BETA-2 GLYCOPROTEIN 1 ANTIBODY IGA(Performed 01/30/2020) Performed for ESR raised, Arthralgia, unspecified joint, Vitamin D deficiency, Livedo reticularis * CHROMATIN ANTIBODY(Performed 01/30/2020) Performed for ESR raised, Arthralgia, unspecified joint, Vitamin D deficiency, Livedo reticularis * HISTONE ANTIBODY(Performed 01/30/2020) Performed for ESR raised, Arthralgia, unspecified joint, Vitamin D deficiency, Livedo reticularis * HLA TYPING B27(Performed 01/30/2020) Performed for ESR raised, Arthralgia, unspecified joint, Vitamin D deficiency, Livedo reticularis * SCLERODERMA COMPREHENSIVE AB PANEL(Performed 01/30/2020) Performed for ESR raised, Arthralgia, unspecified joint, Vitamin D deficiency, Livedo reticularis * COMPLEMENT C4(Performed 01/30/2020) Performed for ESR raised, Arthralgia, unspecified joint, Vitamin D deficiency, Livedo reticularis * COMPLEMENT C3(Performed 01/30/2020) Performed for ESR raised, Arthralgia, unspecified joint, Vitamin D deficiency, Livedo reticularis * DNA ANTIBODY DS CRITHIDIA TITER(Performed 01/30/2020) Performed for ESR raised, Arthralgia, unspecified joint, Vitamin D deficiency, Livedo reticularis * CROCKER (SM) ANTIBODY ABDIFATAH(Performed 01/30/2020) Performed for ESR raised, Arthralgia, unspecified joint, Vitamin D deficiency, Livedo reticularis * SS-B (SJOGREN'S) ANTIBODY(Performed 01/30/2020) Performed for ESR raised, Arthralgia, unspecified joint, Vitamin D deficiency, Livedo reticularis * ARTIE BLOOD SCREEN W/REFLEX TITER(Performed 01/30/2020) Performed for ESR raised, Arthralgia, unspecified joint, Vitamin D deficiency, Livedo reticularis * OPH VISUAL FIELD TEST SLU(Performed 12/29/2019) Performed for 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) * FL SPINAL INJECTION OR ASPIRATE(Performed 11/13/2019) Performed for Lumbar puncture headache * FL LUMBAR PUNCTURE(Performed 11/07/2019) Performed for Abnormal MRI of head * DIFFERENTIAL MANUAL FLUID(Performed 11/07/2019) Performed for Abnormal MRI of head * PROTEIN CSF(Performed 11/07/2019) Performed for Abnormal MRI of head * OLIGOCLONAL BANDS CSF+BLOOD PANEL(Performed 11/07/2019) Performed for Abnormal MRI of head * GLUCOSE CSF(Performed 11/07/2019) Performed for Abnormal MRI of head * CELL COUNT W DIFFERENTIAL CSF(Performed 11/07/2019) Performed for Abnormal MRI of head * CBC W/O DIFFERENTIAL(Performed 11/07/2019) Performed for Axenfeld-Rosetta syndrome * CT SINUS WO CONTRAST(Performed 11/06/2019) Performed for Chronic pansinusitis, Rhinorrhea, Nasal obstruction * MRI THORACIC SPINE WWO CONT(Performed 10/22/2019) Performed for Abnormal MRI of head * MRI CERVICAL SPINE WWO CONT(Performed 10/22/2019) Performed for Abnormal MRI of head * CREATININE BLOOD - POCT (IP) SLH(Performed 10/22/2019) Performed for Abnormal MRI of head * ARTIE BLOOD SCREEN W/REFLEX TITER(Performed 10/06/2019) Performed for Abnormal MRI of head * CYCLIC CITRULLINATED PEPTIDE(CCP) AB IGG(Performed 10/06/2019) Performed for Abnormal MRI of head * DNA ANTIBODY DS CRITHIDIA TITER(Performed 10/06/2019) Performed for Abnormal MRI of head * ERYTHROCYTE SEDIMENTATION RATE(Performed 10/06/2019) Performed for Abnormal MRI of head * C-REACTIVE PROTEIN(Performed 10/06/2019) Performed for Abnormal MRI of head * RHEUMATOID FACTOR BLOOD QUANTITATIVE(Performed 10/06/2019) Performed for Abnormal MRI of head * VITAMIN D 25-HYDROXY(Performed 10/06/2019) Performed for Abnormal MRI of head * VITAMIN B12(Performed 10/06/2019) Performed for Abnormal MRI of head * SS-A (SJOGREN'S) ANTIBODY(Performed 10/06/2019) Performed for Abnormal MRI of head * SS-B (SJOGREN'S) ANTIBODY(Performed 10/06/2019) Performed for Abnormal MRI of head * OPH OCT TEST SLU(Performed 09/04/2019) Performed for Blurred vision, bilateral * MRI LUMBAR SPINE WWO CONTRAST(Performed 08/13/2019) Performed for White matter disease, Numbness and tingling of lower extremity, Other complicated headache syndrome * MRI BRAIN WWO CONTRAST(Performed 08/13/2019) Performed for White matter disease, Numbness and tingling of lower extremity, Other complicated headache syndrome * CREATININE BLOOD - POCT (IP) SLH(Performed 08/13/2019) Performed for White matter disease * OPH OCT TEST SLU(Performed 07/28/2019) Performed for Blurred vision, bilateral * CYCLOPHOTOCOAGULATION DESTRUCTION CILIARY BODY (TRANSCLERAL)(Performed 06/19/2019) Performed for Acute phacomorphic glaucoma of right eye, severe stage * EXTRACTION CATARACT WITH INSERTION LENS(Performed 06/19/2019) Performed for Acute phacomorphic glaucoma of right eye, severe stage * OPH IOL TEST SLU(Performed 05/23/2019) Performed for Blurred vision * OPH CORNEAL TOPOGRAPHY TEST SLU(Performed 04/18/2019) Performed for Blurred vision * OPH OCT TEST SLU(Performed 03/17/2019) Performed for Blurred vision * LAB MISC TEST(Performed 11/08/2018) Performed for Axenfeld-Rosetta syndrome * OPH VISUAL FIELD TEST SLU(Performed 10/18/2018) Performed for Glaucoma, secondary, right, severe stage * OPH OCT TEST SLU(Performed 09/23/2018) Performed for Chorioretinal scar of both eyes * OPH OCT TEST SLU(Performed 08/31/2018) Performed for Retinal pigment epithelium abnormality * INSERTION AQUEOUS (GLAUCOMA) SHUNT TO EXTRAOCULAR RESERVOIR(Performed 06/30/2018) Performed for Acute phacomorphic glaucoma, right, severe stage * HCG URINE QUALITATIVE - POINT OF CARE(Performed 06/30/2018) * OPH COLOR FUNDUS PHOTOGRAPHY SLU(Performed 06/21/2018) Performed for Glaucoma suspect, unspecified laterality * CT ORBITS WO CONTRAST(Performed 03/25/2018) Performed for Facial asymmetry, Axenfeld-Rosetta syndrome * DERMATOPATHOLOGY(Performed 03/08/2018) Performed for 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 * OPH COLOR FUNDUS PHOTOGRAPHY SLU(Performed 03/02/2018) Performed for Retinal pigment epithelium abnormality * OPH OCT TEST SLU(Performed 03/02/2018) Performed for Retinal pigment epithelium abnormality * OPH OCT TEST SLU(Performed 02/25/2018) Performed for Glaucoma suspect, unspecified laterality * OPH VISUAL FIELD TEST SLU(Performed 12/31/2017) Performed for Glaucoma suspect of right eye * CYTOLOGY SMEAR PAP THIN PREP(Performed 10/23/1998) Results * RETINAL ANALYSIS OCT (09/18/2024 1:25 PM HVAC/R INSTRUCTOR) Anatomical Region Laterality Modality Head External-Camera Photography Narrative 09/19/2024 10:35 AM HVAC/R INSTRUCTOR Images from the original result were not included. OD: mild ERM, mild DRIL, no CME, overall improved/stable from prior OS: mild ERM, otherwise normal, stable from previous OD (top 04/19/24, bottom 09/18/2024) OS (top 04/19/24, bottom 09/18/2024) Jerri Carrasco MD OPHTHALMOLOGY SCHED ORD W PACS * RETINAL ANALYSIS OCT (04/19/2024 1:33 PM CDT) Anatomical Region Laterality Modality Head External-Camera Photography Narrative 04/21/2024 3:28 PM CDT Images from the original result were not included. OD (top 03/15/24, bottom 04/19/2024) mild ERM, mild DRIL, Few slitlike spaces and internuclear layer nasally, overall stable from prior OS (top 03/15/24, bottom 04/19/2024) mild ERM, otherwise normal, stable from previous Jerri Carrasco MD OPHTHALMOLOGY SCHED ORD W PACS * RETINAL ANALYSIS OCT (03/15/2024 11:05 AM CDT) Anatomical Region Laterality Modality Head External-Camera Photography Narrative 03/17/2024 8:48 AM CDT Images from the original result were not included. OCT OD: mild ERM, mild DRIL, beginning recurrence of CME extrafoveal, worse than prior OS: mild ERM, otherwise normal, stable from previous OD (top 03/15/2024, bottom 02/11/24) OS (top 03/15/2024, bottom 02/11/24) Jerri Carrasco MD OPHTHALMOLOGY SCHED ORD W PACS * RETINAL ANALYSIS OCT (02/11/2024 10:17 AM CDT) Anatomical Region Laterality Modality Head External-Camera Photography Narrative 02/14/2024 12:13 PM CDT Images from the original result were not included. OCT: OD: mild ERM, mild DRIL, no recurrence of CME OS: mild ERM, otherwise normal OD (top 02/02/24, bottom 02/11/2024) OS (top 02/02/24, bottom 02/11/2024) Jerri Carrasco MD OPHTHALMOLOGY SCHED ORD W PACS * RETINAL ANALYSIS OCT (02/02/2024 4:10 PM CDT) Anatomical Region Laterality Modality Head External-Camera Photography Narrative 02/08/2024 3:48 PM CDT Images from the original result were not included. OCT Macula: OD: resolution of CME compared to previous, DRIL, improved OD (top 09/22/2023, bottom 02/02/2024) Jerri Carrasco MD OPHTHALMOLOGY SCHED ORD W PACS * INTRAVITRAL INJECTION PHARMCOLOGIC RIGHT EYE (10/01/2023 12:31 PM HVAC/R INSTRUCTOR) Anatomical Region Laterality Modality Head Other Narrative 10/06/2023 10:59 AM HVAC/R INSTRUCTOR Table formatting from the original result was not included. [facility] Ophthalmology Procedure Note 10/01/2023 at 12:29 PM Patient: Jane Brown Age: [age] year old Date of : 1975 Intravitreal Injection Note: Procedure: Intravitreal injection of Orzudex, right eye Route of administration: Intravitreal Dosage: 0.7 mg Amount administered: 0.7 mg Lot number: [id number] Expiration date: 07/2025 Diagnosis: Cystoid macular edema of right eye [H35.351] Anesthesia: Topical Proparacaine, Tetracaine Prep: 5% Betadine Solution Description of Procedure: After informed consent was obtained,patient ID , medication and site of injection was confirmed. Anesthetic and 5% Betadine solution were placed in the RIGHT eye. Eyelid margins were cleaned with betadine swab. Subconjunctival lidocaine was injected . A lid speculum was placed into the eye. A caliper was set to 3.5mm and used to measure the proper distance posterior to the inferotemporal limbus as the injection was placed. The speculum was then removed and the eye was rinsed with sterile saline. Hand motion visual acuity was present following the injection. The patient was provided with a new face mask. The patient tolerated the procedure well with no complications. We reviewed the warning signs of endophthalmitis and the patient was instructed to follow-up as directed, sooner for any concerning visual signs or symptoms. Dr. Carrasco performed the entirety of the procedure. Winifred Palacios MD Ophthalmology 10/01/2023 12:29 PM I am the attending on the encounter. I personally performed the procedure. Jerri Carrasco MD Attending, Retina and Uveitis service Date of service 10/01/2023 Jerri Carrasco MD OPHTHALMOLOGY SERVIC ES ORDERABLES * CT HEAD WO CONTRAST (09/22/2023 3:10 PM HVAC/R INSTRUCTOR) Anatomical Region Laterality Modality Head Computed Tomogra phy 09/22/2023 3:15 PM HVAC/R INSTRUCTOR Impressions 09/22/2023 3:52 PM HVAC/R INSTRUCTOR IMPRESSION: 1.No acute intracranial hemorrhage, midline shift, or significant mass effect. Report dictated by Bernardo Monk DO (Wellness Consultant). I, Vianney Scruggs MD have personally reviewed and interpreted this examination/study. > Interpreting Provider: Vianney Scruggs MD on 09/22/2023 3:52 PM Narrative 09/22/2023 3:52 PM HVAC/R INSTRUCTOR PROCEDURE: CT HEAD WO CONTRAST, DATE/TIME OF EXAM: 09/22/2023 3:10 PM, LOCATION [facility] INDICATION: R51.9: Occipital headache EXAMINATION: Computed tomography (CT) of the head without contrast ADDITIONAL CLINICAL INFORMATION: Ordering Provider Reason For Exam: abnormal vision CONTRAST: None. TECHNIQUE: CT of the head was performed without contrast according to standard protocol. CT dose reduction technique was used, including Automated Exposure Control. COMPARISON: MRI brain dated 10/21/2021. FINDINGS: No acute intracranial hemorrhage or extra-axial fluid collections are identified. The ventricles are of normal size, shape, and morphology. The basilar cisterns are patent. No mass effect or midline shift is seen. Hypodensities noted in the subcortical/juxtacortical white matter consistent with known history of multiple sclerosis. The mayers-white matter differentiation otherwise appears normal. No acute calvarial fracture is identified.. Arachnoid granulation is seen within the right transverse sinus, unchanged from prior exams. The patient is status post right cataract extraction. There is mild tortuosity of the bilateral optic nerves, unchanged compared to prior study. The paranasal sinuses are clear. Mild opacification of the left mastoid air cells, the right mastoid air cells are clear. No soft tissue abnormality is identified. Procedure Note Vianney Scruggs MD - 09/22/2023 PROCEDURE: CT HEAD WO CONTRAST, DATE/TIME OF EXAM: 09/22/2023 3:10 PM, LOCATION [facility] INDICATION: R51.9: Occipital headache EXAMINATION: Computed tomography (CT) of the head without contrast ADDITIONAL CLINICAL INFORMATION: Ordering Provider Reason For Exam: abnormal vision CONTRAST: None. TECHNIQUE: CT of the head was performed without contrast according to standard protocol. CT dose reduction technique was used, including Automated Exposure Control. COMPARISON: MRI brain dated 10/21/2021. FINDINGS: No acute intracranial hemorrhage or extra-axial fluid collections are identified. The ventricles are of normal size, shape, and morphology.The basilar cisterns are patent. No mass effect or midline shift is seen. Hypodensities noted in the subcortical/juxtacortical white matter consistent with known history of multiple sclerosis. The mayers-whitematter differentiation otherwise appears normal. No acute calvarial fracture is identified.. Arachnoid granulation is seen within the right transverse sinus, unchanged from prior exams. The patient is status post right cataract extraction. There is mild tortuosity of the bilateral optic nerves, unchanged compared to prior study. The paranasal sinuses areclear. Mild opacification of the left mastoid air cells, the right mastoid air cells are clear. No soft tissue abnormality is identified. IMPRESSION: 1.No acute intracranial hemorrhage, midline shift, or significant mass effect. Report dictated by Bernardo Monk DO (Wellness Consultant). I, Vianney Scruggs MD have personally reviewed and interpreted this examination/study. > Interpreting Provider: Vianney Scruggs MD on 09/22/2023 3:52 PM Ludin Joseph MD CT ORDERABLES * (ABNORMAL) CBC W AUTO DIFFERENTIAL (09/22/2023 2:18 PM HVAC/R INSTRUCTOR) Only the most recent of3 resultswithin the time period is included. WBC 8.9 4.0 - 10.7 x10E9/L 09/22/2023 3:09 PM [facility] RBC Count 4.73 3.90 - 5.20 x10E12/L 09/22/2023 3:09 PM [facility] Hemoglobin 15.0 11.9 - 15.8 g/dL 09/22/2023 3:09 PM [facility] Hematocrit 43.7 34.8 - 46.1 % 09/22/2023 3:09 PM [facility] MCV 92.4 80.0 - 98.0 fL 09/22/2023 3:09 PM [facility] MCH 31.7 26.7 - 33.6 pg 09/22/2023 3:09 PM [facility] MCHC 34.3 31.7 - 36.3 g/dL 09/22/2023 3:09 PM [facility] RDW-CV 12.4 11.3 - 14.8 % 09/22/2023 3:09 PM [facility] Platelet Count 271 150 - 420 x10E9/L 09/22/2023 3:09 PM [facility] MPV 11.6(H) 7.8 - 11.4 fL 09/22/2023 3:09 PM [facility] Neutrophil % 51.5 41.0 - 74.0 % 09/22/2023 3:09 PM [facility] Lymphocyte % 38.7 17.0 - 47.0 % 09/22/2023 3:09 PM [facility] Monocyte % 6.2 3.0 - 11.0 % 09/22/2023 3:09 PM [facility] Eosinophil % 1.8 0.0 - 7.0 % 09/22/2023 3:09 PM [facility] Basophil % 1.6 0.0 - 1.6 % 09/22/2023 3:09 PM [facility] Immature Granulocytes % 0.2 0.0 - 1.0 % 09/22/2023 3:09 PM [facility] Neutrophil Absolute 4.59 1.60 - 7.50 x10E9/L 09/22/2023 3:09 PM [facility] Lymphocyte Absolute 3.45 1.00 - 4.40 x10E9/L 09/22/2023 3:09 PM [facility] Monocyte Absolute 0.55 0.15 - 1.00 x10E9/L 09/22/2023 3:09 PM [facility] Eosinophil Absolute 0.16 0.00 - 0.60 x10E9/L 09/22/2023 3:09 PM [facility] Basophil Absolute 0.14(H) 0.00 - 0.13 x10E9/L 09/22/2023 3:09 PM [facility] Blood BLOOD SPECIMEN / Unknown Venipuncture / Unknown 09/22/2023 2:18 PM HVAC/R INSTRUCTOR 09/22/2023 3:01 PM [facility] Linnea Zavala CLINICAL SERVICES CONSULTANT-[employer]AFER LINE WORKER LAB - HEMATO LOGY ORDERABLES [address] [phone] [phone] * (ABNORMAL) COMPREHENSIVE METABOLIC PANEL (09/22/2023 2:18 PM HVAC/R INSTRUCTOR) Only the most recent of2 resultswithin the time period is included. BUN 9 7 - 26 mg/dL 09/22/2023 3:34 PM [facility] Creatinine 0.77 0.56 - 0.96 mg/dL 09/22/2023 3:34 PM [facility] Sodium 138 136 - 145 mmol/L 09/22/2023 3:34 PM [facility] Potassium 4.3 3.5 - 4.5 mmol/L 09/22/2023 3:34 PM [facility] Chloride 109(H) 98 - 107 mmol/L 09/22/2023 3:34 PM [facility] CO2 21(L) 22 - 29 mmol/L 09/22/2023 3:34 PM [facility] Glucose 92 70 - 115 mg/dL 09/22/2023 3:34 PM [facility] Calcium 8.9 8.4 - 10.2 mg/dL 09/22/2023 3:34 PM [facility] Protein Total 7.0 6.0 - 8.3 g/dL 09/22/2023 3:34 PM [facility] Albumin 3.6 3.4 - 5.0 g/dL 09/22/2023 3:34 PM [facility] Bilirubin Total 0.7 0.2 - 1.2 mg/dL 09/22/2023 3:34 PM [facility] Alkaline Phosphatase 67 40 - 150 U/L 09/22/2023 3:34 PM [facility] ALT 18 5 - 55 U/L 09/22/2023 3:34 PM [facility] AST 14 5 - 34 U/L 09/22/2023 3:34 PM [facility] Anion Gap 8 6 - 16 09/22/2023 3:34 PM [facility] BUN/Creatinine Ratio 12 7 - 23 09/22/2023 3:34 PM [facility] Osmolality Calculated 284 275 - 295 mOsm/kg 09/22/2023 3:34 PM [facility] Albumin/Globulin Ratio 1.1 1.1 - 2.3 09/22/2023 3:34 PM [facility] eGFR by CKD-EPI >90 >=90 mL/min/1.7 3 m2 09/22/2023 3:34 PM [facility] Blood BLOOD SPECIMEN / Unknown Venipuncture / Unknown 09/22/2023 2:18 PM HVAC/R INSTRUCTOR 09/22/2023 3:01 PM [facility] Linnea Zavala CLINICAL SERVICES CONSULTANT-[employer]ER LINE WORKER LAB - CHEMIS TRY ORDERABLES Performing Organization Address City/State/[facility] Co de Phone Number [address] [address], [facility] [phone] * HCG BETA BLOOD QUANTITATIVE (09/22/2023 2:18 PM HVAC/R INSTRUCTOR) Beta-hCG Total Quantitative <3 mIU/mL 09/22/2023 3:44 PM [facility] Comment: HCG Numeric Result Interpretation: Non- Females: < 5 mIU/mL Post-Menopausal Females: < 7 mIU/mL This assay is cleared for use in the early detection of only. It is not approved for any other uses such as tumor marker screening, tumor marker monitoring, etc. and should not be used for any other purposes. Blood BLOOD SPECIMEN / Unknown Venipuncture / Unknown 09/22/2023 2:18 PM HVAC/R INSTRUCTOR 09/22/2023 3:01 PM HVAC/R INSTRUCTOR Linnea Pradofaith CLINICAL SERVICES CONSULTANT-[employer] WORKER LAB - CHEMIS TRY ORDERABLES Performing Organization Address City/[facility]/ZIP Co de Phone Number [address] [address], [facility] [phone] * MAGNESIUM BLOOD (09/22/2023 2:18 PM HVAC/R INSTRUCTOR) Magnesium 2.0 1.6 - 2.6 mg/dL 09/22/2023 3:34 PM HVAC/R INSTRUCTOR [facility] Blood BLOOD SPECIMEN / Unknown Venipuncture / Unknown 09/22/2023 2:18 PM HVAC/R INSTRUCTOR 09/22/2023 3:01 PM HVAC/R INSTRUCTOR Linnea Curtis Lucas CLINICAL SERVICES CONSULTANT-[employer] WORKER LAB - CHEMIS TRY ORDERABLES Performing Organization Address City/[facility]/ZIP Co de Phone Number [address] [address], [facility] [phone] * RETINAL ANALYSIS OCT (09/22/2023 10:09 AM HVAC/R INSTRUCTOR) Anatomical Region Laterality Modality Head External-Camera Photography Narrative 09/22/2023 2:18 PM HVAC/R INSTRUCTOR Images from the original result were not included. OCT top 05/24/23, bottom 09/22/23 OD: recurrence of CME, worsening OS: Normal macular contour Jerri Carrasco MD OPHTHALMOLOGY SCHED ORD W PACS * YAG CAPSULOTOMY RIGHT EYE (06/10/2023 4:00 PM CDT) Anatomical Region Laterality Modality Head Other Narrative 06/10/2023 4:00 PM CDT Table formatting from the original result was not included. [facility] Ophthalmology Procedure Note 06/10/2023 at 3:59 PM Patient: Jane Brown Age: [age] year old Date of : 1975 Ophthalmology Laser Note: Procedure: YAG laser capsulotomy, Right Eye Diagnosis: Posterior capsular opacification, Right Eye Anesthesia: Topical Proparacaine drops Type of laser: Slit Lamp Prior to the procedure, the patient was informed of the risks, benefits, and alternatives. The patient agreed and wished to proceed with treatment. Informed consent was obtained. Form was signed and witnessed and will be scanned into the patient's electronic medical record. Number of spots: 13 Spot size: n/a Power: 25 mJ The patient tolerated the procedure well with no complications and was instructed to follow-up as directed, sooner for any concerning visual signs or symptoms. I am attending on the encounter. I personally performed the entire procedure for the patient. Jerri Carrasco MD Attending, Retina and Uveitis service Date of service 06/09/2023 Jerri Carrasco MD OPHTHALMOLOGY SERVIC ES ORDERABLES * RETINAL ANALYSIS OCT (05/24/2023 3:30 PM CDT) Anatomical Region Laterality Modality Head External-Camera Photography Narrative 06/02/2023 4:32 PM CDT Images from the original result were not included. Right resolved central intraretinal fluid. Left normal macular contour and lamellae OD (top 04/19/23, bottom 05/24/2023) OS (top 04/19/23, bottom 05/24/2023) Jerri Carrasco MD OPHTHALMOLOGY SCHED ORD W PACS * INTRAVITRAL INJECTION PHARMCOLOGIC RIGHT EYE (04/19/2023 3:45 PM CDT) Anatomical Region Laterality Modality Head Other Narrative 04/19/2023 11:37 PM CDT Intravitreal Injection Note Procedure: Intravitreal injection of Ozurdex, Right Eye (OD) eye Route of administration: Intravitreal Dosage: 0.7 mg Amount administered: 1 implant Lot number: [id number] Expiration date: 09/21/2023 Diagnosis: Cystoid macular edema of right eye [H35.351] Anesthesia: Topical Proparacaine and Tetracaine, subconjunctival 4% lidocaine Prep: 5% Betadine Solution Description of Procedure: After informed consent was obtained, anesthetic (topical anesthetic drops followed by subconjunctival 4% lidocaine) and 5% Betadine solution were placed in the operative eye. A lid speculum was then placed and the injection was given 3 mm posterior to the inferotemporal limbus. The speculum was then removed and the eye was rinsed with sterile saline. Hand motion visual acuity was present following the injection. The patient tolerated the procedure well with no complications. We reviewed the warning signs of endophthalmitis and the patient was instructed to follow-up as directed, sooner for any concerning visual signs or symptoms. Dr. Carrasco performed the entire procedure. The patient tolerated the procedure without complications. Sarahy Caceres MD Ophthalmology Resident Date of service: 04/19/2023 I performed the procedure. Jerri Carrasco MD Attending, Retina and Uveitis service Date of service 04/19/2023 Jerri Carrasco MD OPHTHALMOLOGY SERVIC ES ORDERABLES * RETINAL ANALYSIS OCT (04/19/2023 1:45 PM CDT) Anatomical Region Laterality Modality Head External-Camera Photography Narrative 04/19/2023 11:38 PM CDT Images from the original result were not included. OCT OD: ERM/loss of the normal foveal contour, recurrence of cystoid macular edema OS: Normal retina crosssection with preservation of fovea, clivus, and cellular lamina, stable OD (top 02/15/23, bottom 04/19/23) OS (top 02/15/23, bottom 04/19/23) Jerri Carrasco MD OPHTHALMOLOGY SCHED ORD W PACS * SORENSEN AUTO VISUAL FIELD EXTENDED (03/16/2023 2:04 PM CDT) Anatomical Region Laterality Modality Head External-Camera Photography Narrative 03/16/2023 3:19 PM CDT Images from the original result were not included. HVF 03/16/23 OD: 24-2 size V reliable, central island OS: 24-2 size III SFer reliable, sup arcuate defect, VFI 90% Renard Momin MD OPHTHALMOLOGY SCHED ORD W PACS * FUNDUS PHOTO BOTH EYES (03/16/2023 2:04 PM CDT) Anatomical Region Laterality Modality Head External-Camera Photography Narrative 03/16/2023 3:15 PM CDT Images from the original result were not included. OD: blurry view of nerve OS: pink, flat, sharp margins, anomalous shape; inferonasal bone spicules and vessel ?sclerosis Renard Momin MD OPHTHALMOLOGY SCHED ORD W PACS * RETINAL ANALYSIS OCT (02/15/2023 4:58 PM CDT) Anatomical Region Laterality Modality Head External-Camera Photography Narrative 02/17/2023 10:13 AM CDT Images from the original result were not included. OD: ERM/loss of the normal foveal contour, cystoid macular edema resolved, no edema OS: Normal retina crosssection with preservation of fovea, clivus, and cellular lamina Jerri Carrasco MD OPHTHALMOLOGY SCHED ORD W PACS * OCT (12/18/2022 10:48 AM CDT) Anatomical Region Laterality Modality Other 12/18/2022 10:4 8 AM CDT Jerri Carrasco MD OPHTHALMOLOGY SERVIC ES ORDERABLES * PROC OPH INJECTION PROCEDURE (11/23/2022 3:36 PM CDT) Narrative Jerri Carrasco MD - 11/23/2022 3:36 PM CDT Jerri Carrasco MD 11/23/2022 3:38 PM [facility] Ophthalmology Procedure Note 11/23/2022 at 3:36 PM Patient: Jane Brown Age: [age] year old Date of : 1975 Intravitreal Injection Note: Procedure: Intravitreal injection of Ozurdex, RIGHT EYE Route of administration: Intravitreal Dosage: 0.7mg Amount administered: 1 implant Lot number:[id number] Expiration date: 08/2023 Diagnosis: CME (cystoid macular edema), right [H35.351] Anesthesia: Topical Proparacaine and Tetracaine Prep: 5% Betadine Solution Description of Procedure: After informed consent was obtained, anesthetic and 5% Betadine solution were placed in the Right Eye. A lid speculum was then placed and then lidocaine 4% subconj was given inferotemporally . Ozurdex was injected 3 mm from the limbus in a beveled manner. The speculum was then removed and the eye was rinsed with sterile saline. Hand motion visual acuity was present following the injection. The patient tolerated the procedure well with no complications. We reviewed the warning signs of endophthalmitis and the patient was instructed to follow-up as directed, sooner for any concerning visual signs or symptoms. I performed the injection. Jerri Carrasco MD Attending, Retina and Uveitis service Date of service 11/23/2022 Jerri Carrasco MD PROCEDURE/MINOR SURG ICAL ORDERABLES * OCT (11/23/2022 1:59 PM CDT) Anatomical Region Laterality Modality Other 11/23/2022 1:59 PM CDT Jerri Carrasco MD OPHTHALMOLOGY SERVIC ES ORDERABLES * OCT (10/23/2022 10:41 AM HVAC/R INSTRUCTOR) Anatomical Region Laterality Modality Other 10/23/2022 10:4 1 AM HVAC/R INSTRUCTOR Renard Momin MD OPHTHALMOLOGY SERVIC ES ORDERABLES * OCT (09/21/2022 2:29 PM HVAC/R INSTRUCTOR) Anatomical Region Laterality Modality Other 09/21/2022 2:29 PM HVAC/R INSTRUCTOR Jerri Carrasco MD OPHTHALMOLOGY SERVIC ES ORDERABLES * OCT (08/10/2022 2:55 PM HVAC/R INSTRUCTOR) Anatomical Region Laterality Modality Other 08/10/2022 2:55 PM HVAC/R INSTRUCTOR Jerri Carrasco MD OPHTHALMOLOGY SERVIC ES ORDERABLES * OCT (07/20/2022 2:12 PM HVAC/R INSTRUCTOR) Anatomical Region Laterality Modality Other 07/20/2022 2:12 PM HVAC/R INSTRUCTOR Jerri Carrasco MD OPHTHALMOLOGY SERVIC ES ORDERABLES * Visual Estrada (06/25/2022 11:05 AM CDT) Anatomical Region Laterality Modality Other 06/25/2022 11:0 5 AM CDT Wendy Hutchinson MD OPHTHALMOLOGY SERV ES ORDERABLES * SS-A (SJOGREN'S) 52+60 ANTIBODIES (06/11/2022 9:38 AM CDT) Only the most recent of2 resultswithin the time period is included. SS-A 52 Antibody 8 0 - 40 AU/mL 06/13/2022 2:24 PM CDT [facility] ([facility]) Comment: INTERPRETIVE INFORMATION: SSA-52 (Ro52) (ABDIFATAH) Antibody, IgG 29 AU/mL or Less ............. Negative 30 - 40 AU/mL ................ Equivocal 41 AU/mL or Greater .......... Positive SSA-52 (Ro52) and/or SSA-60 (Ro60) antibodies are associated with a diagnosis of Sjogren syndrome, systemic lupus erythematosus (SLE), and systemic sclerosis. SSA-52 antibody overlaps significantly with the major SSc-related antibodies. SSA-52 (Ro52) antibody occurs frequently in patients with inflammatory myopathies, often in the presence of interstitial lung disease. SS-A 60 Antibody 2 0 - 40 AU/mL 06/13/2022 2:24 PM CDT [employer] ([facility]) Comment: REFERENCE INTERVAL: SSA-60 (Ro60) (ABDIFATAH) Antibody, IgG 29 AU/mL or Less ............. Negative 30 - 40 AU/mL ................ Equivocal 41 AU/mL or Greater .......... Positive Performed By: [facility] [address] [place] [id number] Policy Loan Calculator: Demetris Brownlee MD, PhD Blood BLOOD SPECIMEN / Unknown Lab Venipuncture / Unknown 06/11/2022 9:38 AM CDT 06/11/2022 10:32 AM CDT Irais Flores MD LAB - CHEMISTRY ORDShyam LUNDBERG Performing Organization Address [facility] de Phone Number [facility] [facility]) [address] * CROCKER/[employer]OUNT[employer] PAYABLE PROFESSIONAL (ABDIFATAH) ANTIBODY IGG (06/11/2022 9:38 AM CDT) [facility] Crocker/ACCOUNTS PAYABLE PROFESSIONAL (ABDIFATAH) Antibody IgG 3 0 - 19 Units 06/13/2022 2:37 PM CDT [facility] ([facility]) Comment: INTERPRETIVE INFORMATION: Crocker/ACCOUNTS PAYABLE PROFESSIONAL (ABDIFATAH) Antibody, IgG 19 Units or Less ............. Negative 20 to 39 Units ............... Weak Positive 40 to 80 Units ............... Moderate Positive 81 Units or greater .......... Strong Positive Crocker/ACCOUNTS PAYABLE PROFESSIONAL antibodies are frequently seen in patients with mixed connective tissue disease (MCTD) and are also associated with other systemic autoimmune rheumatic diseases (SARDs) such as systemic lupus erythematosus (SLE), systemic sclerosis, and myositis. Antibodies targeting the Crocker/ACCOUNTS PAYABLE PROFESSIONAL antigenic complex also recognize Crocker antigens, therefore, the Crocker antibody response must be considered when interpreting these results. Performed By: [facility] [address] [place] [address] Policy Loan Calculator: Demetris Brownlee MD, PhD Blood BLOOD SPECIMEN / Unknown Lab Venipuncture / Unknown 06/11/2022 9:38 AM CDT 06/11/2022 10:32 AM CDT Irais Flores MD LAB - CHEMISTRY THO LUNDBERG Performing Organization Address [facility] Co de Phone Number [facility]) [address] [place] [address] * DNA ANTIBODY DS CRITHIDIA TITER (06/11/2022 9:38 AM CDT) Only the most recent of3 resultswithin the time period is included. dsDNA Antibody IgG <1:10 <1:10 2021 4:56 PM CDT [facility] ([facility]) Comment: INTERPRETIVE INFORMATION: Double-Stranded DNA (dsDNA) Antibody, IgG by IFA (using Crithidia luciliae) Positivity for anti-double stranded DNA (anti-dsDNA) IgG antibody is a diagnostic criterion of systemic lupus erythematosus (SLE). The presence of the anti-dsDNA IgG antibody is identified by IFA titer (Crithidia luciliae indirect fluorescent test [HUMBERTO]). HUMBERTO is highly specific for SLE with a sensitivity of 50-60 percent. Some patients with early or inactive SLE may be positive for anti-dsDNA IgG by TORSTEN but negative by HUMBERTO. If the HUMBERTO result is negative but the patient has a positive TORSTEN and clinical suspicion remains, consider antinuclear antibody (ARTIE) testing by IFA. Additional information and recommendations for testing may be found at [email or web address]. Performed By: [facility] [address] [place] [address] Policy Loan Calculator: Demetris Brownlee MD, PhD Blood BLOOD SPECIMEN / Unknown Lab Venipuncture / Unknown 06/11/2022 9:38 AM CDT 06/11/2022 10:32 AM CDT Irais Flores MD LAB - SEROLOGY ORDER [facility] ([facility]) [address] [place] [address], [facility] * (ABNORMAL) URINALYSIS W/MICROSCOPIC REFLEX TO CULTURE (06/11/2022 9:38 AM CDT) Color UA Yellow Straw, Yellow 06/14/2022 1:43 PM CDT [facility] LABORATORY [facility] Clarity UA Slt Cloudy(A) Clear 06/14/2022 1:43 PM CDT [facility] Specific [place] UA 1.021 1.005 - 1.030 06/14/2022 1:43 PM [facility] pH UA 5.0 5.0 - 8.0 pH 06/14/2022 1:43 PM [facility] Protein UA Negative Negative 06/14/2022 1:43 PM [facility] Glucose UA Negative Negative 06/14/2022 1:43 PM [facility] Ketone UA Trace(A) Negative 06/14/2022 1:43 PM [facility] Bilirubin UA Negative Negative 06/14/2022 1:43 PM [facility] Blood UA Negative Negative 06/14/2022 1:43 PM [facility] Nitrite UA Negative Negative 06/14/2022 1:43 PM [facility] Leukocyte Esterase Negative Negative 06/14/2022 1:43 PM [facility] Urobilinogen UA Negative Negative mg/dL 06/14/2022 1:43 PM [facility] RBC UA 0-2 None Seen, 0-2, 3-5 /HPF 06/14/2022 1:43 PM [facility] Comment:This is an appended report. These results have been appended to a previously final verified report. WBC UA 0-5 None Seen, 0-5 /HPF 06/14/2022 1:43 PM [facility] Comment:This is an appended report. These results have been appended to a previously final verified report. Bacteria UA 1+(A) None /HPF 06/14/2022 1:43 PM [facility] Comment:This is an appended report. These results have been appended to a previously final verified report. Squamous Epithelial Cells UA 11-20(A) None Seen, 0-2, 3-5 /HPF 06/14/2022 1:43 PM [facility] Comment:This is an appended report. These results have been appended to a previously final verified report. Mucus UA 3+ /LPF 06/14/2022 1:43 PM [facility] Comment:This is an appended report. These results have been appended to a previously final verified report. Urine URINE SPECIMEN OBTAINED BY CLEAN CATCH PROCEDURE / Unknown Collection / Unknown 06/11/2022 9:38 AM CDT 06/11/2022 10:31 AM CDT Narrative [facility] - 06/14/2022 1:43 PM CDT Culture Not Indicated Irais Flores MD LAB - URINALYSIS ORD ERABLES [facility] [address] [place] [address], [facility] [phone] * CROCKER (SM) ANTIBODY ABDIFATAH (06/11/2022 9:38 AM CDT) Only the most recent of2 resultswithin the time period is included. Crocker (ABDIFATAH) Antibody 0 0 - 40 AU/mL 06/13/2022 2:13 PM CDT [facility] ([facility]) Comment: INTERPRETIVE INFORMATION: Crocker (ABDIFATAH) Antibody, IgG 29 AU/mL or Less ............. Negative 30 - 40 AU/mL ................ Equivocal 41 AU/mL or Greater .......... Positive Crocker antibody is highly specific (greater than 90 percent) for systemic lupus erythematosus (SLE) but only occurs in 30-35 percent of SLE cases. The presence of antibodies to Crocker has variable associations with SLE clinical manifestations. Performed By: [facility] [address] [place] [address] Policy Loan Calculator: Demetris Brownlee MD, PhD Blood BLOOD SPECIMEN / Unknown Lab Venipuncture / Unknown 06/11/2022 9:38 AM CDT 06/11/2022 10:32 AM CDT Irais Flores MD LAB - CHEMISTRY [facility]) [address] * RHEUMATOID FACTOR BLOOD QUANTITATIVE (06/11/2022 9:38 AM CDT) Only the most recent of3 resultswithin the time period is included. Rheumatoid Factor <15 <30 IU/mL 06/11/2022 12:13 PM CDT [facility] Rheumatoid Factor Screen Negative Negative 06/11/2022 12:13 PM CDT [facility] Blood BLOOD SPECIMEN / Unknown Lab Venipuncture / Unknown 06/11/2022 9:38 AM CDT 06/11/2022 10:32 AM CDT Irais Flores MD LAB - CHEMISTRY [place]O [place] [facility] [address] [place] [address], [facility] [phone] * ARTIE BLOOD SCREEN W/REFLEX TITER (06/11/2022 9:38 AM CDT) Only the most recent of3 resultswithin the time period is included. ARTIE IgG None Detected None Detected 06/13/2022 8:22 AM CDT [facility] ([facility]) Comment: If suspicion of connective tissue disease is strong and ARTIE EIA is negative, consider testing for ARTIE by IFA ([id number]). INTERPRETIVE INFORMATION: Anti-Nuclear Antibodies (ARTIE), IgG by TORSTEN Antinuclear Antibodies (ARTIE), IgG by TORSTEN: ARTIE specimens are screened using enzyme-linked immunosorbent assay (TORSTEN) methodology. All TORSTEN results reported as Detected are further tested by indirect fluorescent assay (IFA) using HEp-2 substrate with an IgG-specific conjugate. The ARTIE TORSTEN screen is designed to detect antibodies against dsDNA, histones, SS-A (Ro), SS-B (La), Crocker, Crocker/[employer], Scl-70, Chanel-1, centromeric proteins, other antigens extracted from the HEp-2 cell nucleus. ARTIE TORSTEN assays have been reported to have lower sensitivities than ARTIE IFA for systemic autoimmune rheumatic diseases (SARD). Negative results do not necessarily rule out SARD. Performed By: [facility] [address] [place] [id number] Policy Loan Calculator: Demetris Brownlee MD, PhD Blood BLOOD SPECIMEN / Unknown Lab Venipuncture / Unknown 06/11/2022 9:38 AM CDT 06/11/2022 10:32 AM CDT Irais Flores MD LAB - CHEMISTRY THO [place] [facility]) [address] * SS-B (SJOGREN'S) ANTIBODY (06/11/2022 9:38 AM CDT) Only the most recent of3 resultswithin the time period is included. SS-B Antibody 7 0 - 40 AU/mL 06/13/2022 2:08 PM CDT [facility] ([facility]) Comment: INTERPRETIVE INFORMATION: SSB (La) (ABDIFATAH) Ab, IgG 29 AU/mL or Less ............. Negative 30 - 40 AU/mL ................ Equivocal 41 AU/mL or Greater .......... Positive SSB (La) antibody is seen in 50-60% of Sjogren syndrome cases and is specific if it is the only ABDIFATAH antibody present. 15-25% of patients with systemic lupus erythematosus (SLE) and 5-10% of patients with progressive systemic sclerosis (PSS) also have this antibody. Performed By: [facility] [address] [place] [address] Policy Loan Calculator: Demetris Brownlee MD, PhD Blood BLOOD SPECIMEN / Unknown Lab Venipuncture / Unknown 06/11/2022 9:38 AM CDT 06/11/2022 10:32 AM CDT Irais Flores MD LAB - CHEMISTRY THO [place] [facility]) [address] * ALDOLASE (06/11/2022 9:38 AM CDT) Only the most recent of2 resultswithin the time period is included. Aldolase 6.5 1.2 - 7.6 U/L 06/13/2022 3:52 PM CDT [facility] ([facility]) Comment: REFERENCE INTERVAL: Aldolase Access complete set of age- and/or gender-specific reference intervals for this test in the [employer] [facility] Test Directory ([employer]). Performed By: [facility] [address] [place] [address] Policy Loan Calculator: Demetris Brownlee MD, PhD Blood BLOOD SPECIMEN / Unknown Lab Venipuncture / Unknown 06/11/2022 9:38 AM CDT 06/11/2022 10:32 AM CDT Irais Flores MD LAB - CHEMISTRY THO [place] [facility] ([facility]) [address] [place], [place] [address] * CYCLIC CITRULLINATED PEPTIDE(CCP) AB IGG (06/11/2022 9:38 AM CDT) Only the most recent of2 resultswithin the time period is included. Pathologist [facility] CCP Antibody IgG <0.5 <5.0 U/mL 06/11/2022 12:14 PM CDT [facility] Blood BLOOD SPECIMEN / Unknown Lab Venipuncture / Unknown 06/11/2022 9:38 AM CDT 06/11/2022 10:32 AM CDT Irais Flores MD LAB - CHEMISTRY THO [place] Performing Organization Address City/[facility]/ZIP Co de Phone Number [address] [address], [place] [phone] * COMPLEMENT C4 (06/11/2022 9:38 AM CDT) Only the most recent of2 resultswithin the time period is included. Pathologist [facility] Complement C4 23 15 - 57 mg/dL 06/11/2022 11:55 AM CDT [facility] Blood BLOOD SPECIMEN / Unknown Lab Venipuncture / Unknown 06/11/2022 9:38 AM CDT 06/11/2022 10:40 AM CDT Irais Flores MD LAB - SEROLOGY ORDER [facility] [address] [address] [phone] * PROTEIN CREATININE RATIO URINE RANDOM PNL (06/11/2022 9:38 AM CDT) Pathologist [facility] Protein Urine 12 Not Established mg/dL 06/11/2022 11:57 AM [facility] LABORATORY [facility] Creatinine Urine 271 Not Established mg/dL 06/11/2022 11:57 AM [facility] Protein/Creati nine Ratio Urine 0.04 <0.10 06/11/2022 11:57 AM [facility] LABORATORY [facility] Urine URINE SPECIMEN OBTAINED BY CLEAN CATCH PROCEDURE / Unknown Collection / Unknown 06/11/2022 9:38 AM CDT 06/11/2022 10:32 AM CDT Irais Flores MD LAB - URINE CHEMISTR Y ORDERABLES Performing Organization Address City/State/[facility] Co de Phone Number [facility] [address] [place] [address], [facility] [phone] * HEPATIC FUNCTION PANEL (06/11/2022 9:38 AM CDT) Pathologist [facility] Protein Total 7.0 6.0 - 8.3 g/dL 022 11:18 AM [facility] Albumin 3.6 3.4 - 5.0 g/dL 06/11/2022 11:18 AM [facility] Bilirubin Total 0.3 0.2 - 1.2 mg/dL 05/24 11:18 AM [facility] Bilirubin Conjugated 0.1 0.1 - 0.5 mg/dL 06/11/2022 11:18 AM [facility] Bilirubin Unconjugated 0.2 Unconjugated Bilirubin is a calculated value: Reference ranges have not been established. mg/dL 06/11/2022 11:18 AM [facility] Alkaline Phosphatase 78 40 - 150 U/L 06/11/2022 11:18 AM [facility] LAB[facility] ALT 22 5 - 55 U/L 06/11/2022 11:18 AM [facility] AST 19 5 - 34 U/L 06/11/2022 11:18 AM [facility] Albumin/Globulin Ratio 1.1 1.1 - 2.3 06/11/2022 11:18 AM CDT [facility] LABORATORY [facility] Blood BLOOD SPECIMEN / Unknown Lab Venipuncture / Unknown 06/11/2022 9:38 AM CDT 06/11/2022 10:40 AM CDT Irais Flores MD LAB - CHEMISTRY [place]O [place] [address] [address], [facility] [phone] * CREATININE BLOOD (06/11/2022 9:38 AM CDT) Creatinine 0.75 0.56 - 0.96 mg/dL 06/11/2022 11:18 AM CDT [facility] eGFR by CKD-EPI >90 >=90 mL/min/1.7 3 m2 06/11/2022 11:18 AM CDT [facility] Blood BLOOD SPECIMEN / Unknown Lab Venipuncture / Unknown 06/11/2022 9:38 AM CDT 06/11/2022 10:40 AM CDT Irais Flores MD LAB - CHEMISTRY [place]O [place] Performing Organization Address City/[facility]/ZIP Co de Phone Number [address] [address], [place] [phone] * CK BLOOD (06/11/2022 9:38 AM CDT) Only the most recent of2 resultswithin the time period is included. CK Total 55 30 - 200 U/L 06/11/2022 11:18 AM CDT [facility] Blood BLOOD SPECIMEN / Unknown Lab Venipuncture / Unknown 06/11/2022 9:38 AM CDT 06/11/2022 10:40 AM CDT Irais Flores MD LAB - CHEMISTRY [place]O [place] [address] [address], [facility] [phone] * COMPLEMENT C3 (06/11/2022 9:38 AM CDT) Only the most recent of2 resultswithin the time period is included. Complement C3 134 82 - 193 mg/dL 06/11/2022 11:55 AM CDT [facility] Blood BLOOD SPECIMEN / Unknown Lab Venipuncture / Unknown 06/11/2022 9:38 AM CDT 06/11/2022 10:40 AM CDT Irais Flores MD LAB - CHEMISTRY [place]O [place] [address] [address], [place] [phone] * OPH OCT TEST SLU (06/10/2022 1:13 PM CDT) Anatomical Region Laterality Modality Other 06/10/2022 1:13 PM CDT Jerri Carrasco MD OPHTHALMOLOGY SERVIC ES ORDERABLES * OCT (04/29/2022 3:30 PM CDT) Anatomical Region Laterality Modality Other 04/29/2022 3:30 PM CDT Jerri Carrasco MD OPHTHALMOLOGY SERVIC ES ORDERABLES * TSH REFLEX FREE T4 (04/24/2022 2:39 PM CDT) TSH 2.617 0.350 - 4.940 uIU/mL 04/24/2022 3:49 PM CDT [facility] Blood BLOOD SPECIMEN / Unknown Lab Venipuncture / Unknown 04/24/2022 2:39 PM CDT 04/24/2022 2:48 PM CDT Angella Madera MD LAB - CHEMISTRY THO [place] [address] [address], [place] [phone] * FOLATE (04/24/2022 2:39 PM CDT) Folate 9.7 7.0 - 31.4 ng/mL 04/24/2022 3:49 PM CDT [facility] Blood BLOOD SPECIMEN / Unknown Lab Venipuncture / Unknown 04/24/2022 2:39 PM CDT 04/24/2022 2:48 PM CDT Agnella Madera MD LAB - CHEMISTRY THO [place] Performing Organization Address City/[facility]/ZIP Co de Phone Number [address] [address], [place] [phone] * VITAMIN B12 (04/24/2022 2:39 PM CDT) Only the most recent of2 resultswithin the time period is included. Vitamin B12 418 213 - 816 pg/mL 04/24/2022 3:49 PM CDT [facility] Blood BLOOD SPECIMEN / Unknown Lab Venipuncture / Unknown 04/24/2022 2:39 PM CDT 04/24/2022 2:48 PM CDT Angella Madera MD LAB - CHEMISTRY [place]O [place] Performing Organization Address City/[facility]/ZIP Co de Phone Number [address] [address], [place] [phone] * T4 FREE (04/24/2022 2:39 PM CDT) T4 Free 0.9 0.7 - 1.5 ng/dL 04/24/2022 3:49 PM CDT [facility] Blood BLOOD SPECIMEN / Unknown Lab Venipuncture / Unknown 04/24/2022 2:39 PM CDT 04/24/2022 2:48 PM CDT Angella Madera MD LAB - CHEMISTRY THO [place] [address] [address], [facility] [phone] * ID INJ INTRAVITREAL PHARMCOLOGIC RT (04/13/2022 5:35 PM CDT) Narrative Jerri Carrasco MD - 04/13/2022 5:35 PM CDT Jerri Carrasco MD 04/13/2022 8:10 PM [facility] Ophthalmology Procedure Note 04/13/2022 at 5:36 PM Patient: Jane Brown Age: [age] year old Date of : 1975 Intravitreal Injection Note: Procedure: Intravitreal injection of Triesence, RIGHT eye Route of administration: Intravitreal Dosage: 4 mg Amount administered: 0.1 mL Lot number: [id number] Expiration date: 10/21/2023 Diagnosis: CME (cystoid macular edema), 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 Eyelid margins were cleaned with betadine swab. A lid speculum was placed into the eye. A caliper was set to 3.5mm and used to measure the proper distance posterior to the inferotemporal limbus as the injection was placed. The speculum was then removed and the eye was rinsed with sterile saline. Hand motion visual acuity was present following the injection. The patient was provided with a new face mask. The patient tolerated the procedure well with no complications. We reviewed the warning signs of endophthalmitis and the patient was instructed to follow-up as directed, sooner for any concerning visual signs or symptoms. Winifred Palacios MD Ophthalmology 04/13/2022 5:36 PM I performed the procedure. Jerri Carrasco MD Attending, Retina and Uveitis service Date of service 04/13/2022 Jerri Carrasco MD PROCEDURE/MINOR SURG ICAL ORDERABLES * OCT (04/06/2022 3:09 PM CDT) Anatomical Region Laterality Modality Other 04/06/2022 3:09 PM CDT Jerri Carrasco MD OPHTHALMOLOGY SERVIC ES ORDERABLES * ID INJ INTRAVITREAL PHARMCOLOGIC RT (03/02/2022 4:52 PM CDT) Narrative Jerri Carrasco MD - 03/02/2022 4:52 PM CDT Jerri Carrasco MD 03/08/2022 2:15 AM Intravitreal Injection Note Procedure: Intravitreal injections of Avastin, OD eye Route of administration: Intravitreal Dosage: 1.25mg Amount administered: 0.05cc Lot number: [id number] Expiration date: 04/16/22 Diagnosis: Suspected radha Varsha Anesthesia: Topical Proparacaine, and Tetracaine Prep: 5% Betadine Solution Description of Procedure: After informed consent was obtained, anesthetic and 5% Betadine solution were placed in the operative eye. A lid speculum was then placed and the injection was given 3 mm posterior to the inferotemporal limbus. The speculum was then removed and the eye was rinsed with sterile saline. Hand motion visual acuity was present following the injection. The patient tolerated the procedure well with no complications. We reviewed the warning signs of endophthalmitis and the patient was instructed to follow-up as directed, sooner for any concerning visual signs or symptoms. Carlos Manuel Denise MD Ophthalmology PGY-III 03/02/2022 4:53 PM I am the attending on the encounter. I was personally present for the entire procedure and supervised Dr Denise directly who performed the procedure without complications. Jerri Carrasco MD Attending, Retina and Uveitis service Date of service 03/02/2022 Jerri Carrasco MD PROCEDURE/MINOR SURG ICAL ORDERABLES * OPH OCT TEST SLU (03/02/2022 3:08 PM CDT) Anatomical Region Laterality Modality Other 03/02/2022 3:08 PM CDT Jerri Carrasco MD OPHTHALMOLOGY SERVIC ES ORDERABLES * PATHOLOGY/CYTOLOGY REPORT ORDER (02/05/2022) 02/05/2022 Narrative 02/05/2022 Ordered by an unspecified provider. Scanned Document LAB - PATHOLOGY/CYTO LOGY ORDERABLES * ID PUNCH BX SKIN SINGLE LESION, ID PUNCH BX SKIN EA SEP ADDL (01/20/2022 9:47 AM CDT) Narrative Gladis Prince MD - 01/20/2022 9:47 AM CDT Gladis Prince MD 01/20/2022 9:47 AM The punch skin biopsy procedure was requested to rule out small fiber neuropathy. The procedure was explained and informed consent was signed. One 3.5 millimeter biopsy taken 10 cm above the ankle and one biopsy was taken 20 cm below iliac crest on the thigh after local lidocaine anesthesia. Hemostasis was controlled with pressure and a bandage. There were no complications. The patient tolerated the procedure well. Gladis Prince MD PROCEDURE/MINOR SURG ICAL ORDERABLES * OCT (01/12/2022 3:22 PM CDT) Anatomical Region Laterality Modality Other 01/12/2022 3:22 PM CDT Jerri Carrasco MD OPHTHALMOLOGY SERVIC ES ORDERABLES * OCT (12/23/2021 11:21 AM CDT) Anatomical Region Laterality Modality Other 12/23/2021 11:2 1 AM CDT Enrique Motta MD OPHTHALMOLOGY SE RVICES ORDERABLES * Visual Estrada (12/23/2021 11:00 AM CDT) Anatomical Region Laterality Modality Other 12/23/2021 11:0 0 AM CDT Enrique Motta MD OPHTHALMOLOGY SE RVICES ORDERABLES * ID POLYSOM 6/> YRS 4/> RAMIOR (11/03/2021 10:31 AM CDT) Narrative Jhonathan Rees MD - 11/03/2021 10:31 AM CDT Jhonathan Rees MD 11/03/2021 11:02 AM Accredited by the [employer] [facility], [address] [place] [address] Telephone : [phone] Medical Records Patient Name: Jane Brown : 1975 Date of Study: 11/02/2021 Referring Physician: David Clark MD [address] [address] Type of Montage: FULL NIGHT DIAGNOSTIC POLYSOMNOGRAM IMPRESSION: Upper Airway Resistance Syndrome (UARS, with occasional but moderate snoring and arousals, G47.8) (AHI= 3.5 respiratory events/h; Hector SaO2=90% with 0% of sleep time less than or equal to SaO2 of 89%; latency to sleep= 39.0 min; TST= 330.0 min; Efficiency= 67%; Stage N1=3%; Stage N3= 43%; latency to R= 121.5 min; Stage R=16%; body mass of 79 kg; [facility]; 02 November 2021) Patient Active Problem List: Axenfeld-Rosetta syndrome Glaucoma, secondary, right, 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 Facial asymmetry 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 Nuclear sclerotic cataract, right Chronic constipation Dysphagia Family history of aortic aneurysm Suspected condition Neuropathy Tinnitus, bilateral Type 2 diabetes mellitus, without long-term current use of insulin Vitamin D insufficiency Routine health maintenance PNAR (perennial non-allergic rhinitis) Personal history of COVID-19 Osteoarthritis Mixed conductive and sensorineural hearing loss, bilateral Migraine headache Depression, recurrent Chronic pansinusitis Centrilobular emphysema Body mass index (BMI) of 26.0-26.9 in adult Restless legs syndrome Nasal obstruction Deviated nasal septum Nasal turbinate hypertrophy Nasal valve collapse Edentulous Sleep related gastroesophageal reflux disease Back pain Allergic rhinitis Night sweats History of asthma GERD (gastroesophageal reflux disease) DJD (degenerative joint disease), multiple sites History of nasal polypectomy Laryngopharyngeal reflux Pachyderma of larynx COMMENTS: On the diagnostic night, the degree of sleep fragmentation and oxyhemoglobin desaturation was sufficient to have effects on daytime sleepiness, cognition, and function, and might place the patient at risk for accidents. Fragmented sleep can also have metabolic sequelae that include hypertension, cardiac events, thrombosis, insulin resistance, and weight gain. Causes of sleep fragmentation should be treated. Alpha intrusions into N3 sleep might represent a pain syndrome. RECOMMENDATIONS: 1. The patient should return to the sleep disorders clinic to review results, analysis, interpretation, and recommendations. 2. The patient should be counseled and cautioned regarding safe driving. 3. The patient should be counseled to avoid sleep deprivation, alcohol, and all sedative medications as these can exacerbate upper airway resistance. 4. Exercise should be undertaken daily, with respect given to any orthopedic limitations. Physical therapy or physical medicine consultation may be warranted. Strenuous exercise, which activates the sympathetic nervous system (adrenaline system) not only helps with weight loss and mood, but also improves sleep quality, and upper respiratory muscle tone during sleep. 5. The patient should be counseled on principles of good sleep hygiene with particular emphasis on maintaining a regular sleep/wake schedule, maintaining a good environment for sleep (dark, cool, quiet), and ensuring sufficient total sleep time. DIAGNOSTIC POLYSOMNOGRAM During this diagnostic study, the patient slept for 330.0 minutes and had sleep efficiency of 67%. The patient's initial sleep latency was 39.0 minutes. The initial REM latency was 121.5 minutes. Wake as a percentage of sleep period time was 27%. The sleep stages expressed as a percentage of total sleep time: stage N1: 3% stage N2: 38% stage N3: 43% stage REM: 16% The patient's overall hypopnea-apnea index was 3.5 per hour while the respiratory effort-related arousal index was estimated at 14.4 per hour. (Respiratory effort was not measured by esophageal manometry or intercostal EMG.) The minimum in oxyhemoglobin saturation was 90% during REM sleep and 90% during non-REM sleep. The patient spent 0% of sleep time with oxyhemoglobin saturation below or equal to 89%. The patient's periodic limb movement index was 1.6 per hour. There were 110 scored arousals. EKG showed NSR. Parasomniae were not noted during this diagnostic study. Technicians noted occasional, moderate snoring and respiratory events. Alpha delta Post arousal events Supine R Late supine N3 Jhonathan Rees MD, FACP, FACE, FAA Sleep Medicine and Metabolism quality assurance qa lab technician [employer] [employer] CC: David Clark MD [address] [address] Daivd Clark MD Jhonathan Rees MD PROCEDURE/MINOR SURG ICAL ORDERABLES * MRI BRAIN WWO CONTRAST (10/21/2021 3:19 PM HVAC/R INSTRUCTOR) Only the most recent of2 resultswithin the time period is included. Anatomical Region Laterality Modality Head Magnetic Resonan ce 10/22/2021 1:57 PM HVAC/R INSTRUCTOR Impressions 10/24/2021 5:15 AM HVAC/R INSTRUCTOR IMPRESSION: Multiple intracranial white matter lesions compatible with multiple sclerosis, grossly unchanged from prior. No new T2 lesions and no new enhancing lesions to suggest active demyelination. Mild parenchymal volume loss. Dictated by Miguel Denton MD (executive vice president of sales). This report was approved by Miguel Denton on 10/24/2021 5:15 AM . I, Dr. SKYLER OLIVER have personally reviewed and interpreted this examination/study. This report was electronically signed by SKYLER OLIVER on 10/24/2021 5:15 AM . Narrative 10/24/2021 5:15 AM HVAC/R INSTRUCTOR MRI BRAIN WWO CONTRAST DATE: 10/21/2021 3:19 PM EXAMINATION: Magnetic resonance imaging (MRI) of the brain without and with contrast HISTORY: R44.2: Phantosmia. R42: Vertigo. H90.6: Mixed conductive and sensorineural hearing loss of both ears TECHNIQUE: MRI of the brain was performed prior to and following the uneventful administration of 8 mL intravenous GADAVIST contrast according to a demyelination protocol. COMPARISON: MRI of the brain from 08/13/2019. FINDINGS: No evidence of acute or chronic hemorrhage is identified. No evidence of acute cerebral infarction is seen. There is mild cerebral volume loss with associated ex vacuo ventricular dilatation. No mass effect or midline shift is seen. There are multiple foci of hyperintensity on spin density, T2 and FLAIR within the white matter, compatible with the clinical diagnosis of multiple sclerosis. There are approximately 40-50 T2/FLAIR hyperintense lesions in the periventricular white matter. Similar to the prior, no significant lesions along the callosal septal junction and no significant lesions in the brainstem or the posterior fossa. Few lesions demonstrate T1 hypointensity compatible with MS black holes. No enhancing lesions are identified to suggest active demyelination. The corpus callosum and sella appear otherwise grossly stable. The posterior fossa, brainstem, and craniocervical junction appear grossly unremarkable. The optic nerve sheaths are tortuous, similar to prior. Other than right cataract extraction, the visualized portions of the orbits appear otherwise grossly unremarkable. Mild paranasal sinus disease with a small mucus retention cyst in the right maxillary sinus. Mild fluid signal in the mastoid air cells, left more than right. Normal flow voids are demonstrated in the carotid arteries and basilar artery. The calvarium and visualized cervical spine appear normal. Procedure Note Skyler Oliver MD - 10/24/2021 MRI BRAIN WWO CONTRAST DATE: 10/21/2021 3:19 PM EXAMINATION: Magnetic resonance imaging (MRI) of the brain without and with contrast HISTORY: R44.2: Phantosmia. R42: Vertigo. H90.6: Mixed conductive and sensorineural hearing loss of both ears TECHNIQUE: MRI of the brain was performed prior to and following the uneventful administration of 8 mL intravenous GADAVIST contrastaccording to a demyelination protocol. COMPARISON: MRI of the brain from 08/13/2019. FINDINGS: No evidence of acute or chronic hemorrhage is identified. No evidence of acute cerebral infarction is seen. There is mild cerebral volume losswith associated ex vacuo ventricular dilatation. No mass effect or midline shift is seen. There are multiple foci of hyperintensity on spindensity, T2 and FLAIR within the white matter, compatible with the clinical diagnosis of multiple sclerosis. There are approximately 40-50 T2/FLAIR hyperintense lesions in the periventricular white matter. Similar to the prior, no significant lesions along the callosal septal junction and no significant lesions in the brainstem or the posterior fossa. Few lesions demonstrate T1 hypointensity compatible with MS black holes. Noenhancing lesions are identified to suggest active demyelination. The corpus callosum and sella appear otherwise grossly stable. The posterior fossa, brainstem, and craniocervical junction appear grossly unremarkable. The optic nerve sheaths are tortuous, similar to prior. Other than right cataract extraction, the visualized portions of the orbits appear otherwise grossly unremarkable. Mild paranasal sinus disease with asmall mucus retention cyst in the right maxillary sinus. Mild fluid signal in the mastoid air cells, left more than right. Normal flow voids are demonstrated in the carotid arteries and basilar artery. The calvariumand visualized cervical spine appear normal. IMPRESSION: Multiple intracranial white matter lesions compatible with multiple sclerosis, grossly unchanged from prior. No new T2 lesions and no new enhancing lesions to suggest active demyelination. Mild parenchymalvolume loss. Dictated by Miguel Denton MD (executive vice president of sales). This report was approved by Miguel Denton on 10/24/2021 5:15 AM . I, Dr. SKYLER OLIVER have personally reviewed and interpreted this examination/study. This report was electronically signed by SKYLER OLIVER on10/24/2021 5:15 AM . Christian Sam MD MR ORDERABLES * CREATININE - POCT INTERFACED (10/21/2021 2:28 PM HVAC/R INSTRUCTOR) Creatinine POCT 0.67 0.30 - 1.30 mg/dL 10/21/2021 2:30 PM HVAC/R INSTRUCTOR [facility] Comment:Range ok for MRI eGFR >90 >90 mL/min/1.7 3 m2 10/21/2021 2:30 PM HVAC/R INSTRUCTOR [facility] Blood BLOOD SPECIMEN / Unknown 10/21/2021 2:28 PM HVAC/R INSTRUCTOR 10/21/2021 2:30 PM HVAC/R INSTRUCTOR Christian Sam MD LAB - POINT OF CAR E ORDERABLES Performing Organization Address City/State/[facility] Co de Phone Number [address] [address], [facility] [phone] * OPH OCT TEST [facility] (10/07/2021 11:28 AM HVAC/R INSTRUCTOR) Anatomical Region Laterality Modality Other 10/07/2021 11:2 8 AM HVAC/R INSTRUCTOR Antonino Garcia MD [facility] ORDERABLES * CT SINUS WO CONTRAST (08/12/2021 3:07 PM HVAC/R INSTRUCTOR) Only the most recent of2 resultswithin the time period is included. Anatomical Region Laterality Modality Head Computed Tomogra phy 08/12/2021 7:39 PM HVAC/R INSTRUCTOR Impressions 08/12/2021 8:06 PM HVAC/R INSTRUCTOR IMPRESSION: 1. Mild mucosal disease within maxillary sinuses bilaterally. 2. 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 3. Chronic optic nerve atrophy bilaterally. This report was electronically signed by HELEN WINCHESTER on 08/12/2021 8:06 PM . Narrative 08/12/2021 8:06 PM HVAC/R INSTRUCTOR EXAM: CT Sinuses without contrast EXAM DATE: 08/12/2021 3:07 PM HISTORY: J32.4: Chronic pansinusitis R43.1: Parosmia R44.2: Phantosmia TECHNIQUE: 1 mm contiguous axial images through paranasal sinuses were obtained along with 2D coronal and sagittal reformatted images without I.V. contrast administration. COMPARISON: 11/06/[address] FINDINGS: Frontal and ethmoid sinuses: Frontal and ethmoid sinuses are well aerated without mucosal disease, opacification or air-fluid level. Frontoethmoidal recesses are patent bilaterally. Enlarged fovea ethmoidalis is noted bilaterally more on the right side with demineralization of the cribriform plate. These findings are chronic. Right maxillary sinus: Right maxillary sinus is hypoplastic. There is a retention cysts arising from the lateral aspect of the roof of the right maxillary sinus. Right maxillary sinus ostiomeatal complex remains patent. Left maxillary sinus: Slightly lobulated mucosal disease is present along the roof and the anterior lateral rollins of left maxillary sinus without a significant air-fluid level or opacification. Left maxillary sinus ostiomeatal complex patent with a large nonnative ostium along the medial wall posterior to the saxman ostium. Sphenoid sinuses: Sphenoid sinuses are well aerated without significant mucosal disease, opacification or air-fluid levels. Sphenoid sinus ostia and sphenoethmoidal recesses are patent bilaterally. Nasal Septum and Nasal Cavities: Chronic deviation of the nasal septum to the left is again noted with demineralization. Other Findings: Partial opacification of the inferior aspect of left mastoid is noted. Otherwise, bilateral tympanic cavities and right mastoid are well aerated. 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 Flattened plane of articulation atlantooccipital joints is noted. 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 Small optic nerves are noted bilaterally. Procedure Note Helen Winchester MD - 08/12/2021 EXAM: CT Sinuses without contrast EXAM DATE: 08/12/2021 3:07 PM HISTORY: J32.4: Chronic pansinusitis R43.1: Parosmia R44.2: Phantosmia TECHNIQUE: 1 mm contiguous axial images through paranasal sinuses were obtained along with 2D coronal and sagittal reformatted images without I.V. contrast administration. COMPARISON: 11/06/[address] FINDINGS: Frontal and ethmoid sinuses: Frontal and ethmoid sinuses are well aerated without mucosal disease, opacification or air-fluid level. Frontoethmoidal recesses are patent bilaterally. Enlarged fovea ethmoidalis is noted bilaterally more on the right side with demineralization of the cribriform plate. These findings arechronic. Right maxillary sinus: Right maxillary sinus is hypoplastic. There is a retention cysts arising from the lateral aspect of the roof of the right maxillary sinus. Right maxillary sinus ostiomeatal complex remains patent. Left maxillary sinus: Slightly lobulated mucosal disease is present along the roof and the anterior lateral rollins of left maxillary sinus without a significant air-fluid level or opacification. Left maxillary sinus ostiomeatalcomplex patent with a large nonnative ostium along the medial wall posterior to the saxman ostium. Sphenoid sinuses: Sphenoid sinuses are well aerated without significant mucosal disease, opacification or air-fluid levels. Sphenoid sinus ostia and sphenoethmoidal recesses are patent bilaterally. Nasal Septum and Nasal Cavities: Chronic deviation of the nasal septum to the left is again noted with demineralization. Other Findings: Partial opacification of the inferior aspect of left mastoid is noted. Otherwise, bilateral tympanic cavities and right mastoid are wellaerated. 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 Flattened plane of articulation atlantooccipital joints is noted. 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 Small optic nerves are noted bilaterally. IMPRESSION: 1. Mild mucosal disease within maxillary sinuses bilaterally. 2. 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 3. Chronic optic nerve atrophy bilaterally. This report was electronically signed by HELEN WINCHESTER on 08/12/2021 8:06PM . Christian Sam MD CT ORDERABLES * OPH OCT TEST [facility] (08/08/2021 11:18 AM HVAC/R INSTRUCTOR) Anatomical Region Laterality Modality Other 08/08/2021 11:1 8 AM HVAC/R INSTRUCTOR Antonino Garcia MD [facility] ORDERABLES * ID INJ INTRAVITREAL PHARMCOLOGIC RT (07/28/2021 1:59 PM HVAC/R INSTRUCTOR) Narrative Antonino Garcia MD - 07/28/2021 1:59 PM HVAC/R INSTRUCTOR Antonino Garcia MD 07/28/2021 2:00 PM Procedure: Intravitreal injections of kenalog, right Route of administration: Intravitreal Dosage: 4 mg Amount administered: 0.05-0.1cc Diagnosis: CME Anesthesia: 4% Lidocaine Prep: 5% Betadine Solution Description of Procedure: After informed consent was obtained, anesthetic and 5% Betadine solution were placed in the right eye. A lid speculum was then placed and the injection was given approximately 4 mm posterior to the limbus. The speculum was then removed and the eye was rinsed with sterile saline. Hand motion visual acuity was present following the injection. The patient tolerated the procedure well with no complications. We reviewed the warning signs of endophthalmitis and the patient was instructed to follow-up as directed, sooner for any concerning visual signs or symptoms. Patient was instructed to return or get in touch if pain or vision loss. I was present during the whole appointment/procedure. Antonino Garcia MD Antonino Garcia MD PROCEDURE/M INOR SURGICAL ORDERABLES * OCT (07/25/2021 9:55 AM HVAC/R INSTRUCTOR) Anatomical Region Laterality Modality Other 07/25/2021 9:55 AM HVAC/R INSTRUCTOR Antonino Garcia MD [facility] ORDERAB[facility] * LAB MISC TEST (05/27/2021 3:05 PM CDT) Only the most recent of3 resultswithin the time period is included. Test Name See Scanned Report 06/27/2021 12:44 PM CDT [facility] Test Result See Scanned Report 06/27/2021 12:44 PM CDT [facility] Comment Ref Lab See Scanned Report 06/27/2021 12:44 PM CDT [facility] Comment See Scanned Report 06/27/2021 12:44 PM CDT [facility] Blood BLOOD SPECIMEN / Unknown Lab Venipuncture / Unknown 05/27/2021 3:05 PM CDT 05/27/2021 3:46 PM CDT Gladis Prince MD LAB SEND OUT [address] [address] * TRANSFERRIN (05/27/2021 3:05 PM CDT) Transferrin 242 174 - 382 mg/dL 05/27/2021 5:09 PM CDT [facility] Blood BLOOD SPECIMEN / Unknown Lab Venipuncture / Unknown 05/27/2021 3:05 PM CDT 05/27/2021 3:47 PM CDT Gladis Prince MD LAB - CHEMISTRY THO [place] Performing Organization Address City/[facility]/ZIP Co de Phone Number [address] [address], [facility] [phone] * IRON BLOOD (05/27/2021 3:05 PM CDT) Iron 52 40 - 150 ug/dL 05/27/2021 5:09 PM CDT [facility] Blood BLOOD SPECIMEN / Unknown Lab Venipuncture / Unknown 05/27/2021 3:05 PM CDT 05/27/2021 3:47 PM CDT Gladis Prince MD LAB - CHEMISTRY THO [place] Performing Organization Address City/[facility]/ZIP Co de Phone Number [address] [address], [place] [phone] * FERRITIN (05/27/2021 3:05 PM CDT) Ferritin 20 13 - 204 ng/mL 05/27/2021 5:04 PM CDT [facility] Blood BLOOD SPECIMEN / Unknown Lab Venipuncture / Unknown 05/27/2021 3:05 PM CDT 05/27/2021 3:47 PM CDT Gladis Prince MD LAB - CHEMISTRY THO [place] [facility] Organization Address City/State/ZIP Co de Phone Number [facility] [address] [place] [address], [facility] [phone] * OPH OCT TEST [facility] (05/21/2021 2:18 PM CDT) Anatomical Region Laterality Modality Other 05/21/2021 2:18 PM CDT Antonino Garcia MD [facility] ORDERABLES * Visual Estrada (05/09/2021 11:19 AM CDT) Anatomical Region Laterality Modality Other 05/09/2021 11:1 9 AM CDT Renard Momin MD OPHTHALMOLOGY SERVIC ES ORDERABLES * Ref to Neurology - [facility] (04/17/2021 3:23 PM CDT) Chip Conti MD OUT PATIENT REFERRALS * ID INJ INTRAVITREAL PHARMCOLOGIC RT (03/12/2021 4:10 PM CDT) Narrative Antonino Garcia MD - 03/12/2021 4:10 PM CDT Antonino Garcia MD 03/14/2021 6:08 PM Intravitreal Injection Note Procedure: Intravitreal injections of avastin, Right eye Route of administration: Intravitreal Dosage: 1.25mg Amount administered: 0.05cc Lot number: [id number] Expiration date: 04/27/21 Diagnosis: Cystoid macular edema right eye Anesthesia: 4% Lidocaine Prep: 5% Betadine Solution Description of Procedure: After informed consent was obtained, anesthetic and 5% Betadine solution were placed in the right eye. A lid speculum was then placed and the injection was given approximately 4 mm posterior to theinferotemporal limbus. The speculum was then removed and the eye was rinsed with sterile saline. Hand motion visual acuity was present following the injection. The patient tolerated the procedure well with no complications. We reviewed the warning signs of endophthalmitis and the patient was instructed to follow-up as directed, sooner for any concerning visual signs or symptoms. Meri La PGY3 Ophthalmology I was present during the whole appointment/procedure. Antonino Garcia MD Antonino Garcia MD PROCEDURE/M INOR SURGICAL ORDERABLES * OCT (03/12/2021 2:48 PM CDT) Anatomical Region Laterality Modality Other 03/12/2021 2:48 PM CDT Antonino Garcia MD [facility] ORDERABLES * OPH OCT TEST [facility] (10/30/2020 1:31 PM HVAC/R INSTRUCTOR) Anatomical Region Laterality Modality Other 10/30/2020 1:31 PM HVAC/R INSTRUCTOR Antonino Garcia MD [facility] ORDERABLES * AUDIOLOGY/TYMPANOMETRY ORDER (06/11/2020 2:36 PM CDT) Narrative 06/11/2020 2:36 PM CDT Ordered by an unspecified provider. Scanned Document AUDIOLOGY SERVICES O RDERABLES * OPH OCT TEST [facility] (05/24/2020 12:29 PM CDT) Anatomical Region Laterality Modality Other 05/24/2020 12:2 9 PM CDT Renard Momin MD OPHTHALMOLOGY SERVIC ES ORDERABLES * XR FOOT RIGHT WT BEARING 3VW (01/30/2020 11:58 AM CDT) Anatomical Region Laterality Modality Ankle / Foot Radiographic Radha ging 01/30/2020 12:1 1 PM CDT Impressions 01/30/2020 12:21 PM CDT IMPRESSION: 1. Right hand: Normal. 2. Left hand: Minimal degenerative change. 3. Right foot: A solitary nonspecific cyst/erosion at the first toe interphalangeal joint. No joint space narrowing is seen. 4. Left foot: A dorsal talar head spur. Otherwise normal. 5. Right hip: Normal. 6. Left hip: Normal. 7. Sacroiliac joints: Normal. This report was electronically signed by LARRY THOMAS MD on 01/30/2020 12:21 PM . Narrative 01/30/2020 12:21 PM CDT Exam: 1.XR HAND RIGHT 3VW 2.XR HIP LEFT 2VW 3.XR HIP RIGHT 2VW 4.XR FOOT RIGHT WT BEARING 3VW 5. XR FOOT LEFT WT BEARING 3VW 6. XR HAND LEFT 3VW 7.XR SI JOINTS 3VW History: ESR raised, arthralgia of multiple joints , vitamin D deficiency Comparison: None. Findings: Right hand: No fracture or dislocation is present. The joint spaces are normal. No erosions are seen. Bone density appears normal. The soft tissues are normal. Left hand: No fracture or dislocation is present. There is small osteophyte formation at the third digit distal interphalangeal joint. A subchondral cyst is seen in the third digit proximal phalanx head. Otherwise the joint spaces are normal. No erosions are seen. Bone density appears normal. The soft tissues are normal. Right foot: No fracture or dislocation is present. The joint spaces are normal. A cyst/erosion is noted at the first toe interphalangeal joint in the head of the proximal phalanx at the central aspect of the articular surface. Bone density appears normal. The soft tissues are normal. Left foot: No fracture or dislocation is present. The joint spaces are normal. No erosions are seen. Bone density appears normal. The soft tissues are normal. A dorsal talar head spur is visible. Right hip: There is no fracture or dislocation. The joint space is normal. No erosions are seen. Left hip: There is no fracture or dislocation. The joint space is normal. No erosions are present. Sacroiliac joints: There is no erosion, widening, sclerosis, narrowing, or ankylosis on either side. No fracture is present. Procedure Note Larry Thomas MD - 01/30/2020 Exam: 1.XR HAND RIGHT 3VW 2.XR HIP LEFT 2VW 3.XR HIP RIGHT 2VW 4.XR FOOT RIGHT WT BEARING 3VW 5. XR FOOT LEFT WT BEARING 3VW 6. XR HAND LEFT 3VW 7.XR SI JOINTS 3VW History: ESR raised, arthralgia of multiple joints , vitamin Ddeficiency Comparison: None. Findings: Right hand: No fracture or dislocation is present. The joint spaces are normal. No erosions are seen. Bone density appears normal. The soft tissues are normal. Left hand: No fracture or dislocation is present. There is small osteophyteformation at the third digit distal interphalangeal joint. A subchondral cyst is seen in the third digit proximal phalanx head. Otherwise the jointspaces are normal. No erosions are seen. Bone density appears normal. Thesoft tissues are normal. Right foot: No fracture or dislocation is present. The joint spaces are normal. A cyst/erosion is noted at the first toe interphalangeal joint in the head of the proximal phalanx at the central aspect of the articular surface. Bone density appears normal. The soft tissues are normal. Left foot: No fracture or dislocation is present. The joint spaces are normal. No erosions are seen. Bone density appears normal. The soft tissues are normal. A dorsal talar head spur is visible. Right hip: There is no fracture or dislocation. The joint space is normal. No erosions are seen. Left hip: There is no fracture or dislocation. The joint space is normal. No erosions are present. Sacroiliac joints: There is no erosion, widening, sclerosis, narrowing, or ankylosis on either side. No fracture is present. IMPRESSION: 1. Right hand: Normal. 2. Left hand: Minimal degenerative change. 3. Right foot: A solitary nonspecific cyst/erosion at the first toe interphalangeal joint. No joint space narrowing is seen. 4. Left foot: A dorsal talar head spur. Otherwise normal. 5. Right hip: Normal. 6. Left hip: Normal. 7. Sacroiliac joints: Normal. This report was electronically signed by LARRY THOMAS MD on01/30/2020 12:21 PM . Emery Wilkinson MD DIAGNOSTIC IMAGING O RDERABLES * XR FOOT LEFT WT BEARING 3VW (01/30/2020 11:58 AM CDT) Anatomical Region Laterality Modality Ankle / Foot Radiographic Radha ging 01/30/2020 12:1 1 PM CDT Impressions 01/30/2020 12:21 PM CDT IMPRESSION: 1. Right hand: Normal. 2. Left hand: Minimal degenerative change. 3. Right foot: A solitary nonspecific cyst/erosion at the first toe interphalangeal joint. No joint space narrowing is seen. 4. Left foot: A dorsal talar head spur. Otherwise normal. 5. Right hip: Normal. 6. Left hip: Normal. 7. Sacroiliac joints: Normal. This report was electronically signed by LARRY THOMAS MD on 01/30/2020 12:21 PM . Narrative 01/30/2020 12:21 PM CDT Exam: 1.XR HAND RIGHT 3VW 2.XR HIP LEFT 2VW 3.XR HIP RIGHT 2VW 4.XR FOOT RIGHT WT BEARING 3VW 5. XR FOOT LEFT WT BEARING 3VW 6. XR HAND LEFT 3VW 7.XR SI JOINTS 3VW History: ESR raised, arthralgia of multiple joints , vitamin D deficiency Comparison: None. Findings: Right hand: No fracture or dislocation is present. The joint spaces are normal. No erosions are seen. Bone density appears normal. The soft tissues are normal. Left hand: No fracture or dislocation is present. There is small osteophyte formation at the third digit distal interphalangeal joint. A subchondral cyst is seen in the third digit proximal phalanx head. Otherwise the joint spaces are normal. No erosions are seen. Bone density appears normal. The soft tissues are normal. Right foot: No fracture or dislocation is present. The joint spaces are normal. A cyst/erosion is noted at the first toe interphalangeal joint in the head of the proximal phalanx at the central aspect of the articular surface. Bone density appears normal. The soft tissues are normal. Left foot: No fracture or dislocation is present. The joint spaces are normal. No erosions are seen. Bone density appears normal. The soft tissues are normal. A dorsal talar head spur is visible. Right hip: There is no fracture or dislocation. The joint space is normal. No erosions are seen. Left hip: There is no fracture or dislocation. The joint space is normal. No erosions are present. Sacroiliac joints: There is no erosion, widening, sclerosis, narrowing, or ankylosis on either side. No fracture is present. Procedure Note Larry Thomas MD - 01/30/2020 Exam: 1.XR HAND RIGHT 3VW 2.XR HIP LEFT 2VW 3.XR HIP RIGHT 2VW 4.XR FOOT RIGHT WT BEARING 3VW 5. XR FOOT LEFT WT BEARING 3VW 6. XR HAND LEFT 3VW 7.XR SI JOINTS 3VW History: ESR raised, arthralgia of multiple joints , vitamin Ddeficiency Comparison: None. Findings: Right hand: No fracture or dislocation is present. The joint spaces are normal. No erosions are seen. Bone density appears normal. The soft tissues are normal. Left hand: No fracture or dislocation is present. There is small osteophyteformation at the third digit distal interphalangeal joint. A subchondral cyst is seen in the third digit proximal phalanx head. Otherwise the jointspaces are normal. No erosions are seen. Bone density appears normal. Thesoft tissues are normal. Right foot: No fracture or dislocation is present. The joint spaces are normal. A cyst/erosion is noted at the first toe interphalangeal joint in the head of the proximal phalanx at the central aspect of the articular surface. Bone density appears normal. The soft tissues are normal. Left foot: No fracture or dislocation is present. The joint spaces are normal. No erosions are seen. Bone density appears normal. The soft tissues are normal. A dorsal talar head spur is visible. Right hip: There is no fracture or dislocation. The joint space is normal. No erosions are seen. Left hip: There is no fracture or dislocation. The joint space is normal. No erosions are present. Sacroiliac joints: There is no erosion, widening, sclerosis, narrowing, or ankylosis on either side. No fracture is present. IMPRESSION: 1. Right hand: Normal. 2. Left hand: Minimal degenerative change. 3. Right foot: A solitary nonspecific cyst/erosion at the first toe interphalangeal joint. No joint space narrowing is seen. 4. Left foot: A dorsal talar head spur. Otherwise normal. 5. Right hip: Normal. 6. Left hip: Normal. 7. Sacroiliac joints: Normal. This report was electronically signed by LARRY THOMAS MD on01/30/2020 12:21 PM . Emery Wilkinson MD DIAGNOSTIC IMAGING O RDERABLES * XR HIP RIGHT 2VW OR MORE (01/30/2020 11:58 AM CDT) Anatomical Region Laterality Modality Pelvis, Lower Extremity Radiogra [facility] Imaging 01/30/2020 12:1 1 PM CDT Impressions 01/30/2020 12:21 PM CDT IMPRESSION: 1. Right hand: Normal. 2. Left hand: Minimal degenerative change. 3. Right foot: A solitary nonspecific cyst/erosion at the first toe interphalangeal joint. No joint space narrowing is seen. 4. Left foot: A dorsal talar head spur. Otherwise normal. 5. Right hip: Normal. 6. Left hip: Normal. 7. Sacroiliac joints: Normal. This report was electronically signed by LARRY THOMAS MD on 01/30/2020 12:21 PM . Narrative 01/30/2020 12:21 PM CDT Exam: 1.XR HAND RIGHT 3VW 2.XR HIP LEFT 2VW 3.XR HIP RIGHT 2VW 4.XR FOOT RIGHT WT BEARING 3VW 5. XR FOOT LEFT WT BEARING 3VW 6. XR HAND LEFT 3VW 7.XR SI JOINTS 3VW History: ESR raised, arthralgia of multiple joints , vitamin D deficiency Comparison: None. Findings: Right hand: No fracture or dislocation is present. The joint spaces are normal. No erosions are seen. Bone density appears normal. The soft tissues are normal. Left hand: No fracture or dislocation is present. There is small osteophyte formation at the third digit distal interphalangeal joint. A subchondral cyst is seen in the third digit proximal phalanx head. Otherwise the joint spaces are normal. No erosions are seen. Bone density appears normal. The soft tissues are normal. Right foot: No fracture or dislocation is present. The joint spaces are normal. A cyst/erosion is noted at the first toe interphalangeal joint in the head of the proximal phalanx at the central aspect of the articular surface. Bone density appears normal. The soft tissues are normal. Left foot: No fracture or dislocation is present. The joint spaces are normal. No erosions are seen. Bone density appears normal. The soft tissues are normal. A dorsal talar head spur is visible. Right hip: There is no fracture or dislocation. The joint space is normal. No erosions are seen. Left hip: There is no fracture or dislocation. The joint space is normal. No erosions are present. Sacroiliac joints: There is no erosion, widening, sclerosis, narrowing, or ankylosis on either side. No fracture is present. Procedure Note Larry Thomas MD - 01/30/2020 Exam: 1.XR HAND RIGHT 3VW 2.XR HIP LEFT 2VW 3.XR HIP RIGHT 2VW 4.XR FOOT RIGHT WT BEARING 3VW 5. XR FOOT LEFT WT BEARING 3VW 6. XR HAND LEFT 3VW 7.XR SI JOINTS 3VW History: ESR raised, arthralgia of multiple joints , vitamin Ddeficiency Comparison: None. Findings: Right hand: No fracture or dislocation is present. The joint spaces are normal. No erosions are seen. Bone density appears normal. The soft tissues are normal. Left hand: No fracture or dislocation is present. There is small osteophyteformation at the third digit distal interphalangeal joint. A subchondral cyst is seen in the third digit proximal phalanx head. Otherwise the jointspaces are normal. No erosions are seen. Bone density appears normal. Thesoft tissues are normal. Right foot: No fracture or dislocation is present. The joint spaces are normal. A cyst/erosion is noted at the first toe interphalangeal joint in the head of the proximal phalanx at the central aspect of the articular surface. Bone density appears normal. The soft tissues are normal. Left foot: No fracture or dislocation is present. The joint spaces are normal. No erosions are seen. Bone density appears normal. The soft tissues are normal. A dorsal talar head spur is visible. Right hip: There is no fracture or dislocation. The joint space is normal. No erosions are seen. Left hip: There is no fracture or dislocation. The joint space is normal. No erosions are present. Sacroiliac joints: There is no erosion, widening, sclerosis, narrowing, or ankylosis on either side. No fracture is present. IMPRESSION: 1. Right hand: Normal. 2. Left hand: Minimal degenerative change. 3. Right foot: A solitary nonspecific cyst/erosion at the first toe interphalangeal joint. No joint space narrowing is seen. 4. Left foot: A dorsal talar head spur. Otherwise normal. 5. Right hip: Normal. 6. Left hip: Normal. 7. Sacroiliac joints: Normal. This report was electronically signed by LARRY THOMAS MD on01/30/2020 12:21 PM . Emery Wilkinson MD DIAGNOSTIC IMAGING O RDERABLES * XR HIP LEFT 2VW OR MORE (01/30/2020 11:58 AM CDT) Anatomical Region Laterality Modality Pelvis, Lower Extremity Radiogra [facility] Imaging 01/30/2020 12:1 1 PM CDT Impressions 01/30/2020 12:21 PM CDT IMPRESSION: 1. Right hand: Normal. 2. Left hand: Minimal degenerative change. 3. Right foot: A solitary nonspecific cyst/erosion at the first toe interphalangeal joint. No joint space narrowing is seen. 4. Left foot: A dorsal talar head spur. Otherwise normal. 5. Right hip: Normal. 6. Left hip: Normal. 7. Sacroiliac joints: Normal. This report was electronically signed by LARRY THOMAS MD on 01/30/2020 12:21 PM . Narrative 01/30/2020 12:21 PM CDT Exam: 1.XR HAND RIGHT 3VW 2.XR HIP LEFT 2VW 3.XR HIP RIGHT 2VW 4.XR FOOT RIGHT WT BEARING 3VW 5. XR FOOT LEFT WT BEARING 3VW 6. XR HAND LEFT 3VW 7.XR SI JOINTS 3VW History: ESR raised, arthralgia of multiple joints , vitamin D deficiency Comparison: None. Findings: Right hand: No fracture or dislocation is present. The joint spaces are normal. No erosions are seen. Bone density appears normal. The soft tissues are normal. Left hand: No fracture or dislocation is present. There is small osteophyte formation at the third digit distal interphalangeal joint. A subchondral cyst is seen in the third digit proximal phalanx head. Otherwise the joint spaces are normal. No erosions are seen. Bone density appears normal. The soft tissues are normal. Right foot: No fracture or dislocation is present. The joint spaces are normal. A cyst/erosion is noted at the first toe interphalangeal joint in the head of the proximal phalanx at the central aspect of the articular surface. Bone density appears normal. The soft tissues are normal. Left foot: No fracture or dislocation is present. The joint spaces are normal. No erosions are seen. Bone density appears normal. The soft tissues are normal. A dorsal talar head spur is visible. Right hip: There is no fracture or dislocation. The joint space is normal. No erosions are seen. Left hip: There is no fracture or dislocation. The joint space is normal. No erosions are present. Sacroiliac joints: There is no erosion, widening, sclerosis, narrowing, or ankylosis on either side. No fracture is present. Procedure Note Larry Thomas MD - 01/30/2020 Exam: 1.XR HAND RIGHT 3VW 2.XR HIP LEFT 2VW 3.XR HIP RIGHT 2VW 4.XR FOOT RIGHT WT BEARING 3VW 5. XR FOOT LEFT WT BEARING 3VW 6. XR HAND LEFT 3VW 7.XR SI JOINTS 3VW History: ESR raised, arthralgia of multiple joints , vitamin Ddeficiency Comparison: None. Findings: Right hand: No fracture or dislocation is present. The joint spaces are normal. No erosions are seen. Bone density appears normal. The soft tissues are normal. Left hand: No fracture or dislocation is present. There is small osteophyteformation at the third digit distal interphalangeal joint. A subchondral cyst is seen in the third digit proximal phalanx head. Otherwise the jointspaces are normal. No erosions are seen. Bone density appears normal. Thesoft tissues are normal. Right foot: No fracture or dislocation is present. The joint spaces are normal. A cyst/erosion is noted at the first toe interphalangeal joint in the head of the proximal phalanx at the central aspect of the articular surface. Bone density appears normal. The soft tissues are normal. Left foot: No fracture or dislocation is present. The joint spaces are normal. No erosions are seen. Bone density appears normal. The soft tissues are normal. A dorsal talar head spur is visible. Right hip: There is no fracture or dislocation. The joint space is normal. No erosions are seen. Left hip: There is no fracture or dislocation. The joint space is normal. No erosions are present. Sacroiliac joints: There is no erosion, widening, sclerosis, narrowing, or ankylosis on either side. No fracture is present. IMPRESSION: 1. Right hand: Normal. 2. Left hand: Minimal degenerative change. 3. Right foot: A solitary nonspecific cyst/erosion at the first toe interphalangeal joint. No joint space narrowing is seen. 4. Left foot: A dorsal talar head spur. Otherwise normal. 5. Right hip: Normal. 6. Left hip: Normal. 7. Sacroiliac joints: Normal. This report was electronically signed by LARRY THOMAS MD on01/30/2020 12:21 PM . Emery Wilkinson MD DIAGNOSTIC IMAGING O RDERABLES * XR HAND RIGHT 3VW OR MORE (01/30/2020 11:58 AM CDT) Anatomical Region Laterality Modality Wrist / Hand Radiographic Radha ging 01/30/2020 12:1 1 PM CDT Impressions 01/30/2020 12:21 PM CDT IMPRESSION: 1. Right hand: Normal. 2. Left hand: Minimal degenerative change. 3. Right foot: A solitary nonspecific cyst/erosion at the first toe interphalangeal joint. No joint space narrowing is seen. 4. Left foot: A dorsal talar head spur. Otherwise normal. 5. Right hip: Normal. 6. Left hip: Normal. 7. Sacroiliac joints: Normal. This report was electronically signed by LARRY THOMAS MD on 01/30/2020 12:21 PM . Narrative 01/30/2020 12:21 PM CDT Exam: 1.XR HAND RIGHT 3VW 2.XR HIP LEFT 2VW 3.XR HIP RIGHT 2VW 4.XR FOOT RIGHT WT BEARING 3VW 5. XR FOOT LEFT WT BEARING 3VW 6. XR HAND LEFT 3VW 7.XR SI JOINTS 3VW History: ESR raised, arthralgia of multiple joints , vitamin D deficiency Comparison: None. Findings: Right hand: No fracture or dislocation is present. The joint spaces are normal. No erosions are seen. Bone density appears normal. The soft tissues are normal. Left hand: No fracture or dislocation is present. There is small osteophyte formation at the third digit distal interphalangeal joint. A subchondral cyst is seen in the third digit proximal phalanx head. Otherwise the joint spaces are normal. No erosions are seen. Bone density appears normal. The soft tissues are normal. Right foot: No fracture or dislocation is present. The joint spaces are normal. A cyst/erosion is noted at the first toe interphalangeal joint in the head of the proximal phalanx at the central aspect of the articular surface. Bone density appears normal. The soft tissues are normal. Left foot: No fracture or dislocation is present. The joint spaces are normal. No erosions are seen. Bone density appears normal. The soft tissues are normal. A dorsal talar head spur is visible. Right hip: There is no fracture or dislocation. The joint space is normal. No erosions are seen. Left hip: There is no fracture or dislocation. The joint space is normal. No erosions are present. Sacroiliac joints: There is no erosion, widening, sclerosis, narrowing, or ankylosis on either side. No fracture is present. Procedure Note Larry Thomas MD - 01/30/2020 Exam: 1.XR HAND RIGHT 3VW 2.XR HIP LEFT 2VW 3.XR HIP RIGHT 2VW 4.XR FOOT RIGHT WT BEARING 3VW 5. XR FOOT LEFT WT BEARING 3VW 6. XR HAND LEFT 3VW 7.XR SI JOINTS 3VW History: ESR raised, arthralgia of multiple joints , vitamin Ddeficiency Comparison: None. Findings: Right hand: No fracture or dislocation is present. The joint spaces are normal. No erosions are seen. Bone density appears normal. The soft tissues are normal. Left hand: No fracture or dislocation is present. There is small osteophyteformation at the third digit distal interphalangeal joint. A subchondral cyst is seen in the third digit proximal phalanx head. Otherwise the jointspaces are normal. No erosions are seen. Bone density appears normal. Thesoft tissues are normal. Right foot: No fracture or dislocation is present. The joint spaces are normal. A cyst/erosion is noted at the first toe interphalangeal joint in the head of the proximal phalanx at the central aspect of the articular surface. Bone density appears normal. The soft tissues are normal. Left foot: No fracture or dislocation is present. The joint spaces are normal. No erosions are seen. Bone density appears normal. The soft tissues are normal. A dorsal talar head spur is visible. Right hip: There is no fracture or dislocation. The joint space is normal. No erosions are seen. Left hip: There is no fracture or dislocation. The joint space is normal. No erosions are present. Sacroiliac joints: There is no erosion, widening, sclerosis, narrowing, or ankylosis on either side. No fracture is present. IMPRESSION: 1. Right hand: Normal. 2. Left hand: Minimal degenerative change. 3. Right foot: A solitary nonspecific cyst/erosion at the first toe interphalangeal joint. No joint space narrowing is seen. 4. Left foot: A dorsal talar head spur. Otherwise normal. 5. Right hip: Normal. 6. Left hip: Normal. 7. Sacroiliac joints: Normal. This report was electronically signed by LARRY THOMAS MD on01/30/2020 12:21 PM . Emery Wilkinson MD DIAGNOSTIC IMAGING O RDERABLES * XR HAND LEFT 3VW OR MORE (01/30/2020 11:58 AM CDT) Anatomical Region Laterality Modality Wrist / Hand Radiographic Radha ging 01/30/2020 12:1 1 PM CDT Impressions 01/30/2020 12:21 PM CDT IMPRESSION: 1. Right hand: Normal. 2. Left hand: Minimal degenerative change. 3. Right foot: A solitary nonspecific cyst/erosion at the first toe interphalangeal joint. No joint space narrowing is seen. 4. Left foot: A dorsal talar head spur. Otherwise normal. 5. Right hip: Normal. 6. Left hip: Normal. 7. Sacroiliac joints: Normal. This report was electronically signed by LARRY THOMAS MD on 01/30/2020 12:21 PM . Narrative 01/30/2020 12:21 PM CDT Exam: 1.XR HAND RIGHT 3VW 2.XR HIP LEFT 2VW 3.XR HIP RIGHT 2VW 4.XR FOOT RIGHT WT BEARING 3VW 5. XR FOOT LEFT WT BEARING 3VW 6. XR HAND LEFT 3VW 7.XR SI JOINTS 3VW History: ESR raised, arthralgia of multiple joints , vitamin D deficiency Comparison: None. Findings: Right hand: No fracture or dislocation is present. The joint spaces are normal. No erosions are seen. Bone density appears normal. The soft tissues are normal. Left hand: No fracture or dislocation is present. There is small osteophyte formation at the third digit distal interphalangeal joint. A subchondral cyst is seen in the third digit proximal phalanx head. Otherwise the joint spaces are normal. No erosions are seen. Bone density appears normal. The soft tissues are normal. Right foot: No fracture or dislocation is present. The joint spaces are normal. A cyst/erosion is noted at the first toe interphalangeal joint in the head of the proximal phalanx at the central aspect of the articular surface. Bone density appears normal. The soft tissues are normal. Left foot: No fracture or dislocation is present. The joint spaces are normal. No erosions are seen. Bone density appears normal. The soft tissues are normal. A dorsal talar head spur is visible. Right hip: There is no fracture or dislocation. The joint space is normal. No erosions are seen. Left hip: There is no fracture or dislocation. The joint space is normal. No erosions are present. Sacroiliac joints: There is no erosion, widening, sclerosis, narrowing, or ankylosis on either side. No fracture is present. Procedure Note Larry Thomas MD - 01/30/2020 Exam: 1.XR HAND RIGHT 3VW 2.XR HIP LEFT 2VW 3.XR HIP RIGHT 2VW 4.XR FOOT RIGHT WT BEARING 3VW 5. XR FOOT LEFT WT BEARING 3VW 6. XR HAND LEFT 3VW 7.XR SI JOINTS 3VW History: ESR raised, arthralgia of multiple joints , vitamin Ddeficiency Comparison: None. Findings: Right hand: No fracture or dislocation is present. The joint spaces are normal. No erosions are seen. Bone density appears normal. The soft tissues are normal. Left hand: No fracture or dislocation is present. There is small osteophyteformation at the third digit distal interphalangeal joint. A subchondral cyst is seen in the third digit proximal phalanx head. Otherwise the jointspaces are normal. No erosions are seen. Bone density appears normal. Thesoft tissues are normal. Right foot: No fracture or dislocation is present. The joint spaces are normal. A cyst/erosion is noted at the first toe interphalangeal joint in the head of the proximal phalanx at the central aspect of the articular surface. Bone density appears normal. The soft tissues are normal. Left foot: No fracture or dislocation is present. The joint spaces are normal. No erosions are seen. Bone density appears normal. The soft tissues are normal. A dorsal talar head spur is visible. Right hip: There is no fracture or dislocation. The joint space is normal. No erosions are seen. Left hip: There is no fracture or dislocation. The joint space is normal. No erosions are present. Sacroiliac joints: There is no erosion, widening, sclerosis, narrowing, or ankylosis on either side. No fracture is present. IMPRESSION: 1. Right hand: Normal. 2. Left hand: Minimal degenerative change. 3. Right foot: A solitary nonspecific cyst/erosion at the first toe interphalangeal joint. No joint space narrowing is seen. 4. Left foot: A dorsal talar head spur. Otherwise normal. 5. Right hip: Normal. 6. Left hip: Normal. 7. Sacroiliac joints: Normal. This report was electronically signed by LARRY THOMAS MD on01/30/2020 12:21 PM . Emery Wilkinson MD DIAGNOSTIC IMAGING O RDERABLES * XR SI JOINTS 3VW OR MORE (01/30/2020 11:58 AM CDT) Anatomical Region Laterality Modality Pelvis, Lower Extremity Radiogra [facility] Imaging 01/30/2020 12:1 1 PM CDT Impressions 01/30/2020 12:21 PM CDT IMPRESSION: 1. Right hand: Normal. 2. Left hand: Minimal degenerative change. 3. Right foot: A solitary nonspecific cyst/erosion at the first toe interphalangeal joint. No joint space narrowing is seen. 4. Left foot: A dorsal talar head spur. Otherwise normal. 5. Right hip: Normal. 6. Left hip: Normal. 7. Sacroiliac joints: Normal. This report was electronically signed by LARRY THOMAS MD on 01/30/2020 12:21 PM . Narrative 01/30/2020 12:21 PM CDT Exam: 1.XR HAND RIGHT 3VW 2.XR HIP LEFT 2VW 3.XR HIP RIGHT 2VW 4.XR FOOT RIGHT WT BEARING 3VW 5. XR FOOT LEFT WT BEARING 3VW 6. XR HAND LEFT 3VW 7.XR SI JOINTS 3VW History: ESR raised, arthralgia of multiple joints , vitamin D deficiency Comparison: None. Findings: Right hand: No fracture or dislocation is present. The joint spaces are normal. No erosions are seen. Bone density appears normal. The soft tissues are normal. Left hand: No fracture or dislocation is present. There is small osteophyte formation at the third digit distal interphalangeal joint. A subchondral cyst is seen in the third digit proximal phalanx head. Otherwise the joint spaces are normal. No erosions are seen. Bone density appears normal. The soft tissues are normal. Right foot: No fracture or dislocation is present. The joint spaces are normal. A cyst/erosion is noted at the first toe interphalangeal joint in the head of the proximal phalanx at the central aspect of the articular surface. Bone density appears normal. The soft tissues are normal. Left foot: No fracture or dislocation is present. The joint spaces are normal. No erosions are seen. Bone density appears normal. The soft tissues are normal. A dorsal talar head spur is visible. Right hip: There is no fracture or dislocation. The joint space is normal. No erosions are seen. Left hip: There is no fracture or dislocation. The joint space is normal. No erosions are present. Sacroiliac joints: There is no erosion, widening, sclerosis, narrowing, or ankylosis on either side. No fracture is present. Procedure Note Larry Thomas MD - 01/30/2020 Exam: 1.XR HAND RIGHT 3VW 2.XR HIP LEFT 2VW 3.XR HIP RIGHT 2VW 4.XR FOOT RIGHT WT BEARING 3VW 5. XR FOOT LEFT WT BEARING 3VW 6. XR HAND LEFT 3VW 7.XR SI JOINTS 3VW History: ESR raised, arthralgia of multiple joints , vitamin Ddeficiency Comparison: None. Findings: Right hand: No fracture or dislocation is present. The joint spaces are normal. No erosions are seen. Bone density appears normal. The soft tissues are normal. Left hand: No fracture or dislocation is present. There is small osteophyteformation at the third digit distal interphalangeal joint. A subchondral cyst is seen in the third digit proximal phalanx head. Otherwise the jointspaces are normal. No erosions are seen. Bone density appears normal. Thesoft tissues are normal. Right foot: No fracture or dislocation is present. The joint spaces are normal. A cyst/erosion is noted at the first toe interphalangeal joint in the head of the proximal phalanx at the central aspect of the articular surface. Bone density appears normal. The soft tissues are normal. Left foot: No fracture or dislocation is present. The joint spaces are normal. No erosions are seen. Bone density appears normal. The soft tissues are normal. A dorsal talar head spur is visible. Right hip: There is no fracture or dislocation. The joint space is normal. No erosions are seen. Left hip: There is no fracture or dislocation. The joint space is normal. No erosions are present. Sacroiliac joints: There is no erosion, widening, sclerosis, narrowing, or ankylosis on either side. No fracture is present. IMPRESSION: 1. Right hand: Normal. 2. Left hand: Minimal degenerative change. 3. Right foot: A solitary nonspecific cyst/erosion at the first toe interphalangeal joint. No joint space narrowing is seen. 4. Left foot: A dorsal talar head spur. Otherwise normal. 5. Right hip: Normal. 6. Left hip: Normal. 7. Sacroiliac joints: Normal. This report was electronically signed by LARRY THOMAS MD on01/30/2020 12:21 PM . Emery Wilkinson MD DIAGNOSTIC IMAGING O RDERABLES * (ABNORMAL) URINALYSIS W/MICROSCOPIC NO CULTURE (01/30/2020 11:43 AM CDT) Color UA Anai(A) Straw, Yellow, Colorless 01/30/2020 12:32 PM CDT [facility] [address] [facility] Clarity UA Cloudy(A) Clear, Slt Cloudy 01/30/2020 12:32 PM CDT [facility] [address] [facility] Specific [place] UA 1.020 1.005 - 1.030 01/30/2020 12:32 PM CDT [facility] [address] [facility] pH UA 5.0 5.0 - 8.0 pH 01/30/2020 12:32 PM CDT [facility] [facility] Protein UA Negative Negative mg/dL 01/30/2020 12:32 PM [facility] Glucose UA Negative Negative mg/dL 01/30/2020 12:32 PM [facility] Ketone UA Negative Negative mg/dL 01/30/2020 12:32 PM [facility] Bilirubin UA Negative Negative mg/dL 01/30/2020 12:32 PM [facility] Blood UA 2+(A) Negative 01/30/2020 12:32 PM [facility] Nitrite UA Negative Negative 01/30/2020 12:32 PM [facility] [facility] Leukocyte Esterase Trace(A) Negative 01/30/2020 12:32 PM [facility] Urobilinogen UA Negative Negative mg/dL 01/30/2020 12:32 PM [facility] RBC UA 3-5 None Seen, 0-2, 3-5 /HPF 01/30/2020 12:32 PM [facility] WBC UA 0-5 None Seen, 0-5 /HPF 01/30/2020 12:32 PM [facility] Bacteria UA 2+(A) None, Trace /HPF 01/30/2020 12:32 PM [facility] Squamous Epithelial Cells UA 6-10(A) None Seen, 0-2 /HPF 01/30/2020 12:32 PM [facility] Mucus UA 4+(A) None, 1+ /LPF 01/30/2020 12:32 PM [facility] Urine URINE SPECIMEN OBTAINED BY CLEAN CATCH PROCEDURE / Unknown Collection / Unknown 01/30/2020 11:43 AM CDT 01/30/2020 12:04 PM CDT Narrative [facility] - 01/30/2020 12:32 PM CDT Emery Wilkinson MD LAB - URINALYSIS ORD ERABLES [address] [address], [facility] [phone] * (ABNORMAL) COMPLEMENT ACTIVITY TOTAL (CH50) (01/30/2020 11:08 AM CDT) Complement Activity Total CH50 37.3(L) 38.7 - 89.9 U/mL 02/01/2020 1:44 PM CDT [facility] ([facility]) Comment: If low CH50 value is unexpected or does not correlate with the patient's clinical condition, repeat analysis with a fresh frozen serum specimen is suggested for verification. EFFECTIVE 01/08/2020 PATIENT RE-BASELINING [facility] has validated a new assay for measuring Total Complement Activity (CH50). If the patient is being monitored for total complement activity to determine treatment response, and the prior sample was tested up to 30 days before 01/08/2020, [facility] will offer re-baselining free of charge. If this is an initial CH50 result for diagnosis, re-baselining is not needed. REFERENCE INTERVAL: Complement Activity Total, (CH50) 38.6 U/mL or less ..........Low 38.7-89.9 U/mL .............Normal 90.0 U/mL or greater .......High Performed by [facility], [address] [place], [place] [id number] www.[employer], Jason Woodward MD, Lab. Director Blood BLOOD SPECIMEN / Unknown Lab Venipuncture / Unknown 01/30/2020 11:08 AM CDT 01/30/2020 12:34 PM CDT Emery Wilkinson MD LAB - CHEMISTRY THO LUNDBERG [facility] Organization Address City/State/ZIP Co de Phone Number [facility]) [address] [place] [address], [facility] * SCLERODERMA COMPREHENSIVE AB PANEL (01/30/2020 11:08 AM CDT) ARTIE HEp-2 IgG <1:80 <1:80 02/02/2020 3:42 PM CDT [facility] ([facility]) ARTIE Interpretive Comment See Note 02/02/2020 3:42 PM CDT [facility] ([facility]) Comment: Antinuclear antibodies by IFA negative for homogeneous, speckled, nucleolar, centromere, and nuclear dots patterns. No cytoplasmic pattern observed. INTERPRETIVE INFORMATION: ARTIE Interpretive Comment Presence of antinuclear antibodies (ARTIE) is a hallmark feature of systemic autoimmune rheumatic diseases (SARD). ARTIE lacks diagnostic specificity and is associated with a variety of diseases (cancers, autoimmune, infectious, and inflammatory conditions) and may also occur in healthy individuals in varying prevalence. The lack of diagnostic specificity requires confirmation of positive ARTIE by more-specific serologic tests. ARTIE (nuclear reactivity) positive patterns reported include centromere, homogeneous, nuclear dots, nucleolar, or speckled. Cytoplasmic pattern is reported as ARTIE negative. All patterns are reported to endpoint titers (1:2560). Reported patterns may help guide differential diagnosis, although they may not be specific for individual antibodies or diseases. Negative results do not necessarily rule out SARD. SCL-70 Antibody 4 0 - 40 AU/mL 02/02/2020 3:42 PM T [facility] ([facility]) Comment: INTERPRETIVE INFORMATION: Scleroderma (Scl-70) (ABDIFATAH) Ab, IgG 29 AU/mL or Less ............. Negative 30 - 40 AU/mL ................ Equivocal 41 AU/mL or Greater .......... Positive The presence of Scl-70 antibodies (also referred to as topoisomerase I, huma-I or LEODAN) is considered diagnostic for systemic sclerosis (SSc). Scl-70 antibodies alone are detected in about 20 percent of SSc patients and are associated with the diffuse form of the disease, which may include specific organ involvement and poor prognosis. Scl-70 antibodies have also been reported in a varying percentage of patients with systemic lupus erythematosus (SLE). Scl-70 (huma-1) is a DNA binding protein and anti-DNA/DNA complexes in the sera of SLE patients may bind to huma-I, leading to a false-positive result. The presence of Scl-70 antibody in sera may also be due to contamination of recombinant Scl-70 with DNA derived from cellular material used in immunoassays. Strong clinical correlation is recommended if both Scl-70 and dsDNA antibodies are detected. Negative results do not necessarily rule out the presence of SSc. If clinical suspicion remains, consider further testing for centromere, RNA polymerase III and U3-[employer]OUNTS PAYABLE PROFESSIONAL, PM/Scl, or Th/To antibodies. RNA Polymerase 3 Antibody IgG 5 0 - 19 Units 02/02/2020 3:42 PM CDT [facility] ([facility]) Comment: INTERPRETIVE INFORMATION: RNA Polymerase III Antibody, IgG 19 Units or less ......Negative 20 - 39 Units .........Weak Positive 40 - 80 Units .........Moderate Positive 81 Units or greater ...Strong Positive The presence of RNA polymerase III IgG antibody, when considered in conjunction with other laboratory and clinical findings, is an aid in the diagnosis of systemic sclerosis (SSc) with increased incidence of skin involvement and renal crisis with the diffuse cutaneous form of SSc. RNA polymerase III IgG antibody occur in about 11-23 percent of SSc patients, and typically in the absence of anti-centromere and anti-Scl-70 antibodies. A negative result indicates no detectable IgG antibodies to the dominant antigen of RNA polymerase III and does not rule out the possibility of SSc. False-positive results may also occur due to non-specific binding of immune complexes. Strong clinical correlation is recommended. If clinical suspicion remains, consider additional testing for other antibodies associated with SSc, including centromere, Scl-70, U3-[employer]OUNTS PAYABLE PROFESSIONAL, PM/Scl, or Th/To. Crocker/ACCOUNTS PAYABLE PROFESSIONAL (ABDIFATAH) Antibody IgG 5 0 - 40 AU/mL 02/02/2020 3:42 PM [facility]) Comment: INTERPRETIVE INFORMATION: Crocker/ACCOUNTS PAYABLE PROFESSIONAL (ABDIFATAH) Antibody, IgG 29 AU/mL or Less ............. Negative 30 - 40 AU/mL ................ Equivocal 41 AU/mL or Greater .......... Positive Crocker/ACCOUNTS PAYABLE PROFESSIONAL antibodies are frequently seen in patients with mixed connective tissue disease (MCTD) and are also associated with other systemic autoimmune rheumatic diseases (SARDs) such as systemic lupus erythematosus (SLE), systemic sclerosis, and myositis. Antibodies targeting the Crocker/ACCOUNTS PAYABLE PROFESSIONAL antigenic complex also recognize Crocker antigens, therefore, the Crocker antibody response must be considered when interpreting these results. PM/Scl 100 Antibody IgG Negative Negative 02/02/2020 3:42 PM [facility] ([facility]) Comment: INTERPRETIVE INFORMATION: PM/Scl-100 Antibody, IgG by Immunoblot The presence of PM/Scl-100 IgG antibody along with a positive ARTIE IFA nucleolar pattern is associated with connective tissue diseases such as polymyositis (PM), dermatomyositis (DM), systemic sclerosis (SSc), and polymyositis/systemic sclerosis overlap syndrome. The clinical relevance of PM/Scl-100 IgG antibody with a negative ARTIE IFA nucleolar pattern is unknown. PM/Scl-100 is the main target epitope of the PM/Scl complex, although antibodies to other targets not detected by this assay may occur. Test developed and characteristics determined by [facility]. See Compliance Statement D: [employer]/CS Fibrillarin (U3 ACCOUNTS PAYABLE PROFESSIONAL) Antibody IgG Negative Negative 02/02/2020 3:42 PM CDT [facility] ([facility]) Comment: Interpretive Information: Fibrillarin (U3 [employer]OUNT[employer] PAYABLE PROFESSIONAL) Antibody, IgG The presence of fibrillarin (U3-ACCOUNTS PAYABLE PROFESSIONAL) IgG antibodies in association with an ARTIE IFA nucleolar pattern is suggestive of systemic sclerosis (SSc). In SSc, these antibodies are associated with distinct clinical features, such as younger age at disease onset, frequent internal organ involvement (pulmonary hypertension, myositis and renal disease). Fibrillarin antibodies are detected more frequently in patients with SSc compared to other ethnic groups. Strong correlation with ARTIE IFA results is recommended. In a multi-ethnic cohort of SSc patients (n=98), U3-ACCOUNTS PAYABLE PROFESSIONAL antibodies detected by immunoblot had an agreement of 98.9 percent with the gold standard immunoprecipitation (IP) assay. Approximately 71 percent (5/7) of the borderline U3-ACCOUNTS PAYABLE PROFESSIONAL results with ARTIE nucleolar pattern in this cohort were IP negative. Test developed and characteristics determined by [facility]. See Compliance Statement D: [email or web address]/CS Performed by [facility], [address] [place] [address] www.[employer], Jason Woodward MD, Lab. Director Blood BLOOD SPECIMEN / Unknown Lab Venipuncture / Unknown 01/30/2020 11:08 AM CDT 01/30/2020 12:33 PM CDT Emery Wilkinson MD LAB - SEROLOGY ORDER CHELLY [facility] ([facility]) [address] * CHROMATIN ANTIBODY (01/30/2020 11:08 AM CDT) Chromatin Antibody 2 0 - 19 Units 02/02/2020 2:08 PM CDT [facility] ([facility]) Comment: INTERPRETIVE INFORMATION: Chromatin Antibody, IgG 19 Units or less: Negative 20 - 60 Units: Moderate Positive 61 Units or greater: Strong Positive The presence of anti-chromatin antibodies may be useful in the diagnosis of systemic lupus erythematosus (SLE) or drug-induced lupus (DIL) and have been reported to be predictive of lupus nephritis, especially when antibody levels are high. Performed by [facility], [address] [place] [address] www.[employer], Jason Woodward MD, Lab. Director Blood BLOOD SPECIMEN / Unknown Lab Venipuncture / Unknown 01/30/2020 11:08 AM CDT 01/30/2020 12:34 PM CDT Emery Wilkinson MD LAB - SEROLOGY ORDER CHELLY Performing Organization Address [facility] Co de Phone Number [facility] ([facility]) [address] [place] [address] * CYCLIC CITRUL PEPTIDE ANTIBODY IGG/IGA (CCP) (01/30/2020 11:08 AM CDT) Pathologist [facility] CCP Antibodies IgG/IgA 5 0 - 19 units 02/01/2020 1:06 AM CDT [facility] ([facility]) Comment: Negative <20 Weak positive 20 - 39 Moderate positive 40 - 59 Strong positive >59 Blood BLOOD SPECIMEN / Unknown Lab Venipuncture / Unknown 01/30/2020 11:08 AM CDT 01/30/2020 12:30 PM CDT Narrative [facility] ([facility]) - 02/01/2020 1:06 AM CDT Performed at: [facility] Lab[address] [id number] [employer]aming [employer] Operator: Rachel Valencia MD, Phone: [phone] Emery Wilkinson MD LAB - SEROLOGY ORDER CHELLY [facility] ([facility]) [address] [place] [address] * LUPUS ANTICOAGULANT PANEL (01/30/2020 11:08 AM CDT) APTT 28.4 23.0 - 38.4 Seconds 01/30/2020 12:57 PM CDT [facility] PT 12.6 12.1 - 14.8 Seconds 01/30/2020 12:57 PM CDT [facility] INR 1.0 See Comment 01/30/2020 12:57 PM CDT [facility] Buffer 46.9 Seconds 020 12:57 PM CDT [facility] Phospholipid 46.5 Seconds 01/30/2020 12:57 PM CDT [facility] Delta 0.4 <8.0 Seconds 01/30/2020 12:57 PM CDT [facility] Interpretation [facility] Negative 01/30/2020 12:57 PM CDT [facility] Comment:Up to 15-20% of phil ents with lupus anticoagulant associated with antiphospholipid antibody syndrome (APAS) will have negative [facility] results. For these patients we recommend additional testing to include the Dilute Jorge A Viper Venom Time (DRVVT) test. Immunoassay measurements of anti-cardiolipin and anti-beta-2 glycoprotein 1 are recommended if the DRVVT, and STACLOT-LA tests are negative and there is clinical suspicion of APAS. Blood BLOOD SPECIMEN / Unknown Lab Venipuncture / Unknown 01/30/2020 11:08 AM CDT 01/30/2020 12:30 PM CDT Emery Wilkinson MD LAB - HEMATOLOGY ORD ERABLES [facility]ORY [address] [address], [facility] [phone] * CARDIOLIPIN ANTIBODY IGA (01/30/2020 11:08 AM CDT) Cardiolipin Antibody IgA 4 0 - 11 APL 02/01/2020 7:32 AM CDT [facility] ([facility]) Comment: INTERPRETIVE INFORMATION: Cardiolipin Antibodies, IgA 0-11 APL: Negative 12-19 APL: Indeterminate 20-80 APL: Low to Moderately Positive 81 APL or above: High Positive Performed by [facility], [address] [place] [address],[place] [address] www.[employer], Jason Woodward MD, Lab. Director Blood BLOOD SPECIMEN / Unknown Lab Venipuncture / Unknown 01/30/2020 11:08 AM CDT 01/30/2020 12:33 PM CDT Emery Wilkinson MD LAB - SEROLOGY ORDER CHELLY Performing Organization Address [facility] Co de Phone Number [facility]) [address] [place] [address], [facility] * CARDIOLIPIN ANTIBODY IGM (01/30/2020 11:08 AM CDT) Pathologist [facility] Cardiolipin Antibody IgM 12 0 - 12 MPL 02/01/2020 7:32 AM CDT [facility] ([facility]) Comment: INTERPRETIVE INFORMATION: Anti-Cardiolipin IgM 0-12 MPL: Negative 13-19 MPL: Indeterminate 20-80 MPL: Low to Moderately Positive 81 MPL or above: High Positive The persistent presence of IgG and/or IgM cardiolipin (CL) antibodies in moderate or high levels (greater than 40 GPL and/or greater than 40 MPL units or greater than 99th percentile) is a laboratory criterion for the diagnosis of antiphospholipid syndrome (APS). Persistence is defined as moderate or high levels of IgG and/or IgM CL antibodies detected in two or more specimens drawn at least 12 weeks apart (J Throm Haemost. 2006;4:295-306). Lower positive levels of IgG and/or IgM CL antibodies (above cutoff but less than 40 GPL and/or less than 40 MPL units) may occur in patients with the clinical symptoms of APS; therefore, the actual significance of these levels is undefined. Results should not be used alone for diagnosis and must be interpreted in light of APS-specific clinical manifestations and/or other criteria phospholipid antibody tests. Performed by [facility], [address] [place] [address] [email or web address], Jason Woodward MD, Lab. Director Blood BLOOD SPECIMEN / Unknown Lab Venipuncture / Unknown 01/30/2020 11:08 AM CDT 01/30/2020 12:34 PM CDT Emery Wilkinson MD LAB - SEROLOGY ORDER CHELLY Performing Organization Address [facility] Co de Phone Number [facility] ([facility]) [address] [place] [address] * CARDIOLIPIN ANTIBODY IGG (01/30/2020 11:08 AM CDT) [facility] Cardiolipin Antibody IgG 4 0 - 14 GPL 02/01/2020 7:32 AM CDT [facility] ([facility]) Comment: INTERPRETIVE INFORMATION: Anti-Cardiolipin IgG Ab 0-14 GPL: Negative 15-19 GPL: Indeterminate 20-80 GPL: Low to Moderately Positive 81 GPL or above: High Positive The persistent presence of IgG and/or IgM cardiolipin (CL) antibodies in moderate or high levels (greater than 40 GPL and/or greater than 40 MPL units or greater than 99th percentile) is a laboratory criterion for the diagnosis of antiphospholipid syndrome (APS). Persistence is defined as moderate or high levels of IgG and/or IgM CL antibodies detected in two or more specimens drawn at least 12 weeks apart (J Throm Haemost. 2006;4:295-306). Lower positive levels of IgG and/or IgM CL antibodies (above cutoff but less than 40 GPL and/or less than 40 MPL units) may occur in patients with the clinical symptoms of APS; therefore, the actual significance of these levels is undefined. Results should not be used alone for diagnosis and must be interpreted in light of APS-specific clinical manifestations and/or other criteria phospholipid antibody tests. Performed by [facility], [address] [place] [address] www.[employer], Jason Woodward MD, Lab. Director Blood BLOOD SPECIMEN / Unknown Lab Venipuncture / Unknown 01/30/2020 11:08 AM CDT 01/30/2020 12:31 PM CDT Emery Wilkinson MD LAB - SEROLOGY ORDER CHELLY Performing Organization Address [facility] Co de Phone Number [facility] ([facility]) [address] * C-REACTIVE PROTEIN (01/30/2020 11:08 AM CDT) Only the most recent of2 resultswithin the time period is included. [facility] C-Reactive Protein <0.5 <=0.5 mg/dL 01/30/2020 1:28 PM CDT [facility] Blood BLOOD SPECIMEN / Unknown Lab Venipuncture / Unknown 01/30/2020 11:08 AM CDT 01/30/2020 12:30 PM CDT Emery Wilkinson MD LAB - CHEMISTRY ORDE RABLES [facility] [address] [place] [id number] [phone] * BETA-2 GLYCOPROTEIN 1 ANTIBODY IGA (01/30/2020 11:08 AM CDT) [facility] Beta-2 Glycoprotein Antibody IgA 3 0 - 20 CLAUDIO 02/01/2020 11:55 PM CDT [facility] ([facility]) Comment: Performed by [facility], [address] [place] [address] www.[employer], Jason Woodward MD, Lab. Director Blood BLOOD SPECIMEN / Unknown Lab Venipuncture / Unknown 01/30/2020 11:08 AM CDT 01/30/2020 12:34 PM CDT Emery Wilkinson MD LAB - SEROLOGY ORDER CHELLY Performing Organization Address City/[facility]/ZIP Co de Phone Number [facility]) [address] [place] [address], [facility] * HLA TYPING B27 (01/30/2020 11:08 AM CDT) [facility] HLA-B27 Negative Negative 02/01/2020 8:12 PM CDT [facility] ([facility]) Comment: INTERPRETIVE INFORMATION: HLA-B27 HLA-B27 is a serologically defined allele of the human HLA-B locus. The presence of the HLA-B27 antigen is strongly associated with ankylosing spondylitis and related disorders. Test developed and characteristics determined by [facility]. See Compliance Statement B: [employer]/ Performed by [facility], [address] [place] [address] www.[employer], Jason Woodward MD, Lab. Director Blood BLOOD SPECIMEN / Unknown Lab Venipuncture / Unknown 01/30/2020 11:08 AM CDT 01/30/2020 12:31 PM CDT Emery Wilkinson MD LAB - CHEMISTRY THO LUNDBERG Performing Organization Address [facility] Co de Phone Number [facility]) [address] * HISTONE ANTIBODY (01/30/2020 11:08 AM CDT) Histone Antibody IgG 0.4 0.0 - 0.9 Units 02/01/2020 7:08 AM CDT [facility] ([facility]) Comment: INTERPRETIVE INFORMATION: Histone Ab, IgG 0.9 Units or less ............ Negative 1.0 - 1.5 Units .............. Weak Positive 1.6 - 2.5 Units .............. Moderate Positive 2.6 Units or greater ......... Strong Positive Performed by [facility], [address] [place] [address] www.[employer], Jason Woodward MD, Lab. Director Blood BLOOD SPECIMEN / Unknown Lab Venipuncture / Unknown 01/30/2020 11:08 AM CDT 01/30/2020 12:31 PM CDT Emery Wilkinson MD LAB - CHEMISTRY THO LUNDBERG Performing Organization Address [facility]/ZIP Co de Phone Number [facility]) [address] * BETA-2 GLYCOPROTEIN 1 ANTIBODY IGG/IGM PANEL (01/30/2020 11:08 AM CDT) Beta-2 Glycoprotein Antibody IgG 0 0 - 20 SGU 02/01/2020 11:55 PM CDT [facility] ([facility]) Beta-2 Glycoprotein Antibody IgM 4 0 - 20 SMU 02/01/2020 11:55 PM CDT [facility] ([facility]) Comment: INTERPRETIVE INFORMATION: [id number] I, IgG and IgM Antibody The persistent presence of IgG and/or IgM beta 2 glycoprotein I (B2GPI) antibodies (greater than 99th percentile) is a laboratory criterion for the diagnosis of antiphospholipid syndrome (APS). Persistence is defined as moderate or high levels of IgG and/or IgM B2GPI antibodies detected in two or more specimens drawn at least 12 weeks apart (J Throm Haemost. 2006;4:295-306). B2GPI results greater than 20 SGU (IgG) and/or SMU (IgM) are considered positive based on the cutoff values established for this test. International reference materials and consensus units for anti-B2GPI antibodies have not been established (Clin Aleksandr Acta. 2012;413(1-2):358-60; Arthritis Rheum. 2012;64(1):1-10.). Strong clinical correlation is recommended for a diagnosis of APS. Low positive IgG and IgM B2GPI antibody levels should be interpreted in light of APS-specific clinical manifestations and/or other criteria phospholipid antibody tests. Performed by [facility], [address] [place], [place] [id number] www.[employer], Jason Woodward MD, Lab. Director Blood BLOOD SPECIMEN / Unknown Lab Venipuncture / Unknown 01/30/2020 11:08 AM CDT 01/31/2020 8:51 AM CDT Emery Wilkinson MD LAB - CHEMISTRY THO LUNDBERG [facility] Organization Address City/State/ZIP Co de Phone Number [facility]) [address] [place] [id number], [facility] * VITAMIN D 25-HYDROXY (01/30/2020 11:08 AM CDT) Only the most recent of2 resultswithin the time period is included. [facility] Vitamin D, 25 Hydroxy 58.0 See comment: ng/mL 01/30/2020 2:44 PM CDT [facility] Comment: The recommendations for 25-Hydroxy Vitamin D clinical decision points are as follows: Deficient: <20.0 ng/mL Insufficient: 20.0 - 29.9 ng/mL Sufficient: > or =30.0 ng/mL If the 25-Hydroxy Vitamin D results are inconsitent with clinical evidence, it is recommended that follow-up testing using a method such as LC/MS/MS be performed to confirm the result. Reference: The Endocrine Society Clinical Practice Guidelines. 2010 Blood BLOOD SPECIMEN / Unknown Lab Venipuncture / Unknown 01/30/2020 11:08 AM CDT 01/30/2020 12:30 PM CDT Emery Wilkinson MD LAB - CHEMISTRY THO LUNDBERG [address] [address], [facility] [phone] * (ABNORMAL) ERYTHROCYTE SEDIMENTATION RATE (01/30/2020 11:08 AM CDT) Only the most recent of2 resultswithin the time period is included. Erythrocyte Sedimentation Rate Westergren 28(H) 0 - 20 MM/HR 01/30/2020 1:28 PM CDT [facility] Blood BLOOD SPECIMEN / Unknown Lab Venipuncture / Unknown 01/30/2020 11:08 AM CDT 01/30/2020 12:30 PM CDT Emery Wilkinson MD LAB - HEMATOLOGY ORD LAZARO Performing Organization Address City/[facility]/ZIP Co de Phone Number [address] [address], [facility] [phone] * LDH BLOOD (01/30/2020 11:08 AM CDT) LDH Total 166 125 - 243 Units/L 01/30/2020 1:11 PM CDT [facility] Blood BLOOD SPECIMEN / Unknown Lab Venipuncture / Unknown 01/30/2020 11:08 AM CDT 01/30/2020 12:30 PM CDT Emery Wilkinson MD LAB - CHEMISTRY THO [place] [address] [address], [facility] [phone] * OPH VISUAL FIELD TEST SLU (12/29/2019 2:29 PM CDT) Anatomical Region Laterality Modality Other 12/29/2019 2:29 PM CDT Renard Momin MD OPHTHALMOLOGY SERVIC ES ORDERABLES * FL SPINAL INJECTION OR ASPIRATE (11/13/2019 2:01 PM CDT) Anatomical Region Laterality Modality Spine Radiographic Radha ging Impressions 11/13/2019 3:45 PM CDT IMPRESSION: 1. Successful fluoroscopically-guided epidural blood patch at L3-4. Report dictated by Bernardo Mathews MD (executive vice president of sales). This report was approved by Bernardo Mathews on 11/13/2019 2:48 PM . I, Dr. SKYLER OLIVER have personally reviewed and interpreted this examination/study. This report was electronically signed by SKYLER OLIVER on 11/13/2019 3:45 PM . Narrative 11/13/2019 3:45 PM CDT FL LUMBAR PUNCTURE DATE: 11/13/2019 2:15 PM EXAMINATION: Lumbar epidural blood patch under fluoroscopic guidance HISTORY: Spinal headache TECHNIQUE: The risks and benefits of the lumbar puncture including, but not limited to, infection, bleeding, seizure, subarachnoid injection of blood, cerebrospinal fluid (CSF) leak requiring repeat blood patch procedure, nausea, vomiting, irritation or damage to nerves causing pain or permanent injury were discussed with the patient. After alternatives were discussed and the opportunity to ask questions was provided, the patient acknowledged understanding, gave verbal and written consent, and wished to proceed. Attending physician: Dr. Oliver was present for the [place] portions of this procedure. The L3-4 level was localized with fluoroscopy. The skin overlying this level was then sterilely prepped, draped, and infiltrated with 1% lidocaine for local anesthesia. Under intermittent fluoroscopic guidance, a 18 gauge 3.5 inch Touhy needle was inserted into the epidural space at this level using a loss of resistance syringe connected to the needle. Once loss of resistance was encountered, the syringe was removed. Next, 5 mL of venous blood was withdrawn from the patient's previously placed intravenous catheter and discarded. An additional 15 mL was then collected and hand injected slowly into the epidural space. The patient tolerated the procedure well. The patient was then kept in the radiology department for further observation and 1 hour of bedrest. FLUOROSCOPY TIME: 19 seconds Bernardo Mathews MD FLUOROSCOPY ORDERABL ES * FL LUMBAR PUNCTURE (11/07/2019 10:07 AM CDT) Anatomical Region Laterality Modality Spine Radiographic Radha ging 11/07/2019 10:4 3 AM CDT Impressions 11/07/2019 11:50 AM CDT IMPRESSION: 1. Successful lumbar puncture under fluoroscopic guidance at L3-4. Dictated by Bernardo Mathews MD (executive vice president of sales). This report was approved by Bernardo Mathews on 11/07/2019 10:44 AM . I, Dr. SKYLER OLIVER have personally reviewed and interpreted this examination/study. This report was electronically signed by SKLYER OLIVER on 11/07/2019 11:50 AM . Narrative 11/07/2019 11:50 AM CDT FL LUMBAR PUNCTURE DATE: 11/07/2019 10:07 AM EXAMINATION: Diagnostic lumbar puncture (LP) under fluoroscopic guidance HISTORY: R93.0: Abnormal MRI of head TECHNIQUE: The risks and benefits of the lumbar puncture including, but not limited to, infection, bleeding, seizure, epidural hematoma, post spinal headache, cerebrospinal fluid (CSF) leak requiring blood patch procedure, nausea, vomiting, irritation or damage to nerves causing pain or permanent injury were discussed with the patient. After alternatives were discussed and the opportunity to ask questions was provided, the patient acknowledged understanding, gave verbal and written consent, and wished to proceed. Attending physician: Dr. Oliver was present for the [place] portions of this procedure. The L3-4 level was localized with fluoroscopy. The skin overlying this level was then sterilely prepped, draped, and infiltrated with 1 ml 1% lidocaine without epinephrine for local anesthesia. Under intermittent fluoroscopic guidance, a 22 gauge 3.5 inch needle was inserted into the thecal sac at this level. Clear CSF was identified. A total of 9 ml of CSF was removed and placed into 2 specimen tubes. The patient tolerated the procedure well. The patient was then transferred to the daycare director unit for further observation and at least 2 hours of bedrest. OPENING PRESSURE: Not performed FLUOROSCOPY TIME: 3 seconds Procedure Note Skyler Oliver MD - 11/07/2019 FL LUMBAR PUNCTURE DATE: 11/07/2019 10:07 AM EXAMINATION: Diagnostic lumbar puncture (LP) under fluoroscopic guidance HISTORY: R93.0: Abnormal MRI of head TECHNIQUE: The risks and benefits of the lumbar puncture including, but not limited to, infection, bleeding, seizure, epidural hematoma, post spinal headache, cerebrospinal fluid (CSF) leak requiring blood patch procedure, nausea, vomiting, irritation or damage to nerves causing pain or permanent injury were discussed with the patient. After alternatives were discussed and the opportunity to ask questions was provided, the patient acknowledged understanding, gave verbal and written consent, and wished to proceed. Attending physician: Dr. Oliver was present for the [place] portions ofthis procedure. The L3-4 level was localized with fluoroscopy. The skin overlying this level was then sterilely prepped, draped, and infiltrated with 1 ml 1% lidocaine without epinephrine for local anesthesia. Under intermittent fluoroscopic guidance, a 22 gauge 3.5 inch needle was inserted into the thecal sac at this level. Clear CSF was identified. A total of 9 ml of CSF was removed and placed into 2 specimen tubes. The patient tolerated the procedure well. The patient was then transferred to the daycare director unit for further observation and at least 2 hours of bedrest. OPENING PRESSURE: Not performed FLUOROSCOPY TIME: 3 seconds IMPRESSION: 1. Successful lumbar puncture under fluoroscopic guidance at L3-4. Dictated by Bernardo Mathews MD (executive vice president of sales). This report was approved by Bernardo Mathews on 11/07/2019 10:44 AM . I, Dr. SKYLER OLIVER have personally reviewed and interpreted this examination/study. This report was electronically signed by SKYLER OLIVER on11/07/2019 11:50 AM . Chip Conti MD FLU OROSCOPY ORDERABLES * DIFFERENTIAL MANUAL FLUID (11/07/2019 9:31 AM CDT) Cerebral spinal fluid CEREBROSPINAL FLUID SPECIMEN / Unknown Collection / Unknown 11/07/2019 9:31 AM CDT 11/07/2019 10:18 AM CDT Narrative [facility] - 11/07/2019 11:40 AM CDT Only 48 cells counted on differential. Chip Conti MD LAB - BODY FLUID ORDERABLES [facility] [address] [phone] * OLIGOCLONAL BANDS CSF+BLOOD PANEL (11/07/2019 9:31 AM CDT) Oligoclonial Bands Number 1 0 - 1 Bands 11/10/2019 6:34 PM CDT [facility] ([facility]) IgG 974 768 - 1632 mg/dL 11/10/2019 6:34 PM CDT [facility] ([facility]) Comment: REFERENCE INTERVAL: Immunoglobulin G Access complete set of age- and/or gender-specific reference intervals for this test in the [facility] Laboratory Test Directory ([employer]). IgG CSF 3.3 0.0 - 6.0 mg/dL 11/10/2019 6:34 PM CDT [facility]) Albumin 3770 3500 - 5200 mg/dL 11/10/2019 6:34 PM CDT [facility] ([facility]) Albumin CSF 22 0 - 35 mg/dL 11/10/2019 6:34 PM CDT [facility] ([facility]) Albumin Index 5.8 0.0 - 9.0 ratio 11/10/2019 6:34 PM CDT [facility]) IgG Index 0.58 0.28 - 0.66 ratio 11/10/2019 6:34 PM CDT [facility]) IgG/Albumin Ratio CSF 0.15 0.09 - 0.25 ratio 11/10/2019 6:34 PM CDT [facility] ([facility]) Oligoclonal Bands Negative Negative 020 6:34 PM CDT [facility] ([facility]) Synthesis Rate 0.1 <=8.0 mg/d 11/10/2019 6:34 PM CDT [facility]) Interpretation Oligoclonial See Note 11/10/2019 6:34 PM CDT [facility]) Comment: Isoelectric focusing/immunofixation reveals a single unique band in the CSF as well as identical bands present in both the CSF and the serum. While this is considered to be a negative result for oligoclonal bands, some individuals with a single band subsequently develop oligoclonal bands several months later (Neurology. 2003;60:1163-6). The presence of matching bands is consistent with a systemic immune reaction. Performed by [employer], [address] [id number] [email or web address], Jason Woodward MD, Lab. Director Other MISCELLANEOUS SAMPLES / Unknown Collection / Unknown 11/07/2019 9:31 AM CDT 11/07/2019 10:18 AM CDT Chip Conti MD LAB - BODY FLUID ORDERABLES Performing Organization Address City/[facility] Co de Phone Number [facility] ([facility]) [address] [place] [address], [facility] * CELL COUNT W DIFFERENTIAL CSF (11/07/2019 9:31 AM CDT) Color Fluid Colorless Colorless, Straw 11/07/2019 11:09 AM CDT [facility] Clarity Fluid Clear Clear 11/07/2019 11:09 AM CDT [facility] Volume Fluid 3.0 mL 11/07/2019 11:09 AM CDT [facility] WBC Calculation Fluid 1 0 - 5 /uL 11/07/2019 11:09 AM CDT [facility] RBC Calculation 130 /uL 0 11:09 AM CDT [facility] Xanthochromia Fluid Negative Negative 11/07/2019 11:09 AM CDT [facility] Differential Manual Differential to follow. 11/07/2019 11:09 AM CDT [facility] Cerebral spinal fluid CEREBROSPINAL FLUID SPECIMEN / Unknown Collection / Unknown 11/07/2019 9:31 AM CDT 11/07/2019 10:18 AM CDT Narrative [facility] - 11/07/2019 11:09 AM CDT No reference ranges established for body fluid cell counts. The reference ranges provided are derived from published literature. The test results must be integrated into the clinical context for interpretation. Chip Conti MD LAB - BODY FLUID ORDERABLES [address] [phone] * PROTEIN CSF (11/07/2019 9:31 AM CDT) Protein CSF 39 15 - 45 mg/dL 11/07/2019 10:46 AM CDT [facility] Cerebral spinal fluid CEREBROSPINAL FLUID SPECIMEN / Unknown Collection / Unknown 11/07/2019 9:31 AM CDT 11/07/2019 10:19 AM CDT Chip Conti MD LAB - BODY FLUID ORDERABLES Performing Organization Address City/[facility]/ZIP Co de Phone Number [address] [phone] * GLUCOSE CSF (11/07/2019 9:31 AM CDT) Glucose CSF 62 40 - 70 mg/dL 11/07/2019 10:40 AM CDT [facility] Cerebral spinal fluid CEREBROSPINAL FLUID SPECIMEN / Unknown Collection / Unknown 11/07/2019 9:31 AM CDT 11/07/2019 10:19 AM CDT Chip Conti MD LAB - BODY FLUID ORDERABLES Performing Organization Address City/[facility]/ZIP Co de Phone Number [address] [phone] * CBC W/O DIFFERENTIAL (11/07/2019 8:33 AM CDT) WBC 8.8 3.5 - 10.5 10 3/uL 11/07/2019 8:59 AM CDT [facility] RBC 4.32 3.90 - 5.00 10 6/uL 11/07/2019 8:59 AM CDT [facility] Hemoglobin 13.6 12.0 - 15.5 g/dL 11/07/2019 8:59 AM CDT [facility] Hematocrit 40.7 35.0 - 45.0 % 11/07/2019 8:59 AM [facility] MCV 94.2 81.0 - 97.0 fL 11/07/2019 8:59 AM [facility] MCH 31.5 28.0 - 34.0 pg 11/07/2019 8:59 AM [facility] MCHC 33.4 32.0 - 36.0 g/dL 11/07/2019 8:59 AM [facility] Platelet Count 248 150 - 400 10 3/uL 11/07/2019 8:59 AM [facility] RDW-SD 44.1 36.0 - 50.0 fL 11/07/2019 8:59 AM [facility] RDW-CV 12.7 11.2 - 14.8 % 11/07/2019 8:59 AM [facility] MPV 11.6 9.3 - 12.8 fL 11/07/2019 8:59 AM [facility] nRBC Absolute 0.00 0 10 3/uL 11/07/2019 8:59 AM [facility] nRBC Auto 0.0 0 /100 WBC 11/07/2019 8:59 AM [facility] Blood BLOOD SPECIMEN / Unknown Venipuncture / Unknown 11/07/2019 8:33 AM CDT 11/07/2019 8:56 AM CDT Bernardo Mathews MD LAB - HEMATOLOGY ORD ERABLES Performing Organization Address City/State/[facility] Co de Phone Number [facility] [address] [phone] * MRI THORACIC SPINE WWO CONT (10/22/2019 1:21 PM HVAC/R INSTRUCTOR) Anatomical Region Laterality Modality Spine Magnetic Resonan ce 10/23/2019 11:1 5 AM HVAC/R INSTRUCTOR Impressions 10/23/2019 2:20 PM HVAC/R INSTRUCTOR IMPRESSION: Cord has normal signal, including no evidence of demyelinating or other inflammatory lesions.. Cervical and thoracic spine have mild degenerative changes, with resultant mild canal stenosis at T7-8 level. I, Dr. VASILIY CHAND have personally reviewed and interpreted this examination/study. This report was electronically signed by VASILIY CHAND on 10/23/2019 2:20 PM . Narrative 10/23/2019 2:20 PM HVAC/R INSTRUCTOR EXAMINATION: Magnetic resonance imaging (MRI) of the cervical and thoracic spine without and with contrast HISTORY: R93.0: Abnormal MRI of head TECHNIQUE: MRI of the cervical and thoracic spine was performed prior to and following the uneventful administration of 7 mL of Gadavist intravenous gadolinium contrast according to standard protocol. COMPARISON: None FINDINGS: Cervical spine: Mild reversal of usual cervical lordosis, otherwise normal alignment. Intervertebral disc space heights are maintained. Desiccation of the cervical spine intervertebral discs, worse at the C2-3 and C3-4 level. No abnormal disc edema or enhancement. Vertebral body heights are maintained. Nonpathologic marrow signal, including no abnormal marrow edema or enhancement. Imaged cord has normal caliber and signal, and no abnormal enhancement. No abnormal enhancement in the imaged spinal canal. Noted prominent perineural sleeve cysts in bilateral C4-5 and C5-6 neural foramen. No significant spinal stenosis. Perivertebral space appears unremarkable.. Thoracic spine: Normal alignment. Intervertebral disc space heights are maintained. Normal disc edema or enhancement. Vertebral body heights are maintained. Nonpathologic marrow signal, including no abnormal marrow edema or enhancement. Imaged cord has normal caliber and signal, and no abnormal enhancement. No abnormal enhancement in the imaged spinal canal. T7-8: Focal left paracentral disc protrusion. Mild canal stenosis, with disc protrusion impressing on the adjacent cord, with widely preserved CSF surrounding rest of cord (thoracic spine MRI series 100 image 33). T8-9: Small focal left paracentral disc protrusion, does not cause spinal stenosis. Paraspinal space appears unremarkable. Procedure Note Vasiliy Chand MD - 10/23/2019 EXAMINATION: Magnetic resonance imaging (MRI) of the cervical andthoracic spine without and with contrast HISTORY: R93.0: Abnormal MRI of head TECHNIQUE: MRI of the cervical and thoracic spine was performed prior to and following the uneventful administration of 7 mL of Gadavist intravenous gadolinium contrast according to standard protocol. COMPARISON: None FINDINGS: Cervical spine: Mild reversal of usual cervical lordosis, otherwise normal alignment. Intervertebral disc space heights are maintained. Desiccation of the cervical spine intervertebral discs, worse at the C2-3 and C3-4 level.No abnormal disc edema or enhancement. Vertebral body heights are maintained. Nonpathologic marrow signal, including no abnormal marrow edema or enhancement. Imaged cord has normal caliber and signal, and no abnormal enhancement.No abnormal enhancement in the imaged spinal canal. Noted prominent perineural sleeve cysts in bilateral C4-5 and C5-6 neural foramen. No significant spinal stenosis. Perivertebral space appears unremarkable.. Thoracic spine: Normal alignment. Intervertebral disc space heights are maintained. Normal disc edema or enhancement. Vertebral body heights are maintained. Nonpathologic marrow signal, including no abnormal marrow edema or enhancement. Imaged cord has normal caliber and signal, and no abnormal enhancement.No abnormal enhancement in the imaged spinal canal. T7-8: Focal left paracentral disc protrusion. Mild canal stenosis, with disc protrusion impressing on the adjacent cord, with widely preservedCSF surrounding rest of cord (thoracic spine MRI series 100 image 33). T8-9: Small focal left paracentral disc protrusion, does not causespinal stenosis. Paraspinal space appears unremarkable. IMPRESSION: Cord has normal signal, including no evidence of demyelinating or other inflammatory lesions.. Cervical and thoracic spine have mild degenerative changes, withresultant mild canal stenosis at T7-8 level. IDr. VASILIY have personally reviewed and interpreted this examination/study. This report was electronically signed by VASILIY CHAND on 10/23/2019 2:20PM . Chip Conti MD MR ORDERABLES * MRI CERVICAL SPINE WWO CONT (10/22/2019 1:20 PM HVAC/R INSTRUCTOR) Anatomical Region Laterality Modality Spine Magnetic Resonan ce 10/23/2019 11:1 5 AM HVAC/R INSTRUCTOR Impressions 10/23/2019 2:20 PM HVAC/R INSTRUCTOR IMPRESSION: Cord has normal signal, including no evidence of demyelinating or other inflammatory lesions.. Cervical and thoracic spine have mild degenerative changes, with resultant mild canal stenosis at T7-[address] VASILIY Mcdonald have personally reviewed and interpreted this examination/study. This report was electronically signed by VASILIY CHAND on 10/23/2019 2:20 PM . Narrative 10/23/2019 2:20 PM HVAC/R INSTRUCTOR EXAMINATION: Magnetic resonance imaging (MRI) of the cervical and thoracic spine without and with contrast HISTORY: R93.0: Abnormal MRI of head TECHNIQUE: MRI of the cervical and thoracic spine was performed prior to and following the uneventful administration of 7 mL of Gadavist intravenous gadolinium contrast according to standard protocol. COMPARISON: None FINDINGS: Cervical spine: Mild reversal of usual cervical lordosis, otherwise normal alignment. Intervertebral disc space heights are maintained. Desiccation of the cervical spine intervertebral discs, worse at the C2-3 and C3-4 level. No abnormal disc edema or enhancement. Vertebral body heights are maintained. Nonpathologic marrow signal, including no abnormal marrow edema or enhancement. Imaged cord has normal caliber and signal, and no abnormal enhancement. No abnormal enhancement in the imaged spinal canal. Noted prominent perineural sleeve cysts in bilateral C4-5 and C5-6 neural foramen. No significant spinal stenosis. Perivertebral space appears unremarkable.. Thoracic spine: Normal alignment. Intervertebral disc space heights are maintained. Normal disc edema or enhancement. Vertebral body heights are maintained. Nonpathologic marrow signal, including no abnormal marrow edema or enhancement. Imaged cord has normal caliber and signal, and no abnormal enhancement. No abnormal enhancement in the imaged spinal canal. T7-8: Focal left paracentral disc protrusion. Mild canal stenosis, with disc protrusion impressing on the adjacent cord, with widely preserved CSF surrounding rest of cord (thoracic spine MRI series 100 image 33). T8-9: Small focal left paracentral disc protrusion, does not cause spinal stenosis. Paraspinal space appears unremarkable. Procedure Note Vasiliy Chand MD - 10/23/2019 EXAMINATION: Magnetic resonance imaging (MRI) of the cervical andthoracic spine without and with contrast HISTORY: R93.0: Abnormal MRI of head TECHNIQUE: MRI of the cervical and thoracic spine was performed prior to and following the uneventful administration of 7 mL of Gadavist intravenous gadolinium contrast according to standard protocol. COMPARISON: None FINDINGS: Cervical spine: Mild reversal of usual cervical lordosis, otherwise normal alignment. Intervertebral disc space heights are maintained. Desiccation of the cervical spine intervertebral discs, worse at the C2-3 and C3-4 level.No abnormal disc edema or enhancement. Vertebral body heights are maintained. Nonpathologic marrow signal, including no abnormal marrow edema or enhancement. Imaged cord has normal caliber and signal, and no abnormal enhancement.No abnormal enhancement in the imaged spinal canal. Noted prominent perineural sleeve cysts in bilateral C4-5 and C5-6 neural foramen. No significant spinal stenosis. Perivertebral space appears unremarkable.. Thoracic spine: Normal alignment. Intervertebral disc space heights are maintained. Normal disc edema or enhancement. Vertebral body heights are maintained. Nonpathologic marrow signal, including no abnormal marrow edema or enhancement. Imaged cord has normal caliber and signal, and no abnormal enhancement.No abnormal enhancement in the imaged spinal canal. T7-8: Focal left paracentral disc protrusion. Mild canal stenosis, with disc protrusion impressing on the adjacent cord, with widely preservedCSF surrounding rest of cord (thoracic spine MRI series 100 image 33). T8-9: Small focal left paracentral disc protrusion, does not causespinal stenosis. Paraspinal space appears unremarkable. IMPRESSION: Cord has normal signal, including no evidence of demyelinating or other inflammatory lesions.. Cervical and thoracic spine have mild degenerative changes, withresultant mild canal stenosis at T7-8 level. I, Dr. VASILIY CHAND have personally reviewed and interpreted this examination/study. This report was electronically signed by VASILIY CHAND on 10/23/2019 2:20PM . Chip Conti MD MR ORDERABLES * (ABNORMAL) CREATININE BLOOD - POCT (IP) [facility] (10/22/2019 11:48 AM HVAC/R INSTRUCTOR) Only the most recent of2 resultswithin the time period is included. Creatinine POCT 1.56(A) 0.3 - 1.3 mg/dL [facility] POCT TESTING eGFR POCT 40(A) 60 ml/min [facility] POCT TESTING Blood BLOOD SPECIMEN / Unknown 10/22/2019 11:48 AM HVAC/R INSTRUCTOR Chip Conti MD LAB - POINT OF CARE ORDERABLES [facility] POCT TESTING [address] [place] [address] * SS-A (SJOGREN'S) ANTIBODY (10/06/2019 5:22 PM HVAC/R INSTRUCTOR) SS-A (Ro) Antibody 2.9 0.0 - 19.9 Units 10/10/2019 10:04 AM HVAC/R INSTRUCTOR [facility] Comment: ABDIFATAH Antibody Numeric Result Interpretation: <20.0 Units: Negative 20.0 - 39.0 Units: Weakly Positive >39.0 Units: Positive Blood BLOOD SPECIMEN / Unknown Lab Venipuncture / Unknown 10/06/2019 5:22 PM HVAC/R INSTRUCTOR 10/06/2019 5:38 PM HVAC/R INSTRUCTOR Chip Conti MD LAB - CHEMISTRY ORDERABLES [facility] [address] [phone] * OPH OCT TEST SLU (09/04/2019 11:25 AM HVAC/R INSTRUCTOR) Anatomical Region Laterality Modality Other 09/04/2019 11:2 5 AM HVAC/R INSTRUCTOR Antonino Garcia MD OPHTHALMOLO [facility] ORDERABLES * MRI LUMBAR SPINE WWO CONTRAST (08/13/2019 4:52 PM HVAC/R INSTRUCTOR) Anatomical Region Laterality Modality Spine Magnetic Resonan ce 08/14/2019 7:59 AM HVAC/R INSTRUCTOR Impressions 08/14/2019 8:10 AM HVAC/R INSTRUCTOR IMPRESSION: Lumbar spine degenerative changes causing minimal/mild spinal stenosis, described above. L5 abnormal marrow signal, appearance suggests sequela of chronic fracture without significant displacement, loss of vertebral body height, or retropulsion . This report was electronically signed by VASILIY CHAND on 08/14/2019 8:10 AM . Narrative 08/14/2019 8:10 AM HVAC/R INSTRUCTOR EXAMINATION: Magnetic resonance imaging (MRI) of the lumbar spine without and with contrast HISTORY: R90.82: White matter disease R20.0: Numbness and tingling of lower extremity R20.2: Numbness and tingling of lower extremity G44.59: Other complicated headache syndrome TECHNIQUE: MRI of the lumbar spine was performed prior to and following the uneventful administration of [] intravenous gadolinium 7 mm Gadavist contrast according to standard protocol. FINDINGS: Normal alignment. Lumbar spine ligaments are intact. Intervertebral disc space heights are grossly maintained. Desiccation of the L1-2, L3-4, L4-5, L5-S1 intervertebral discs. No significant abnormal disc edema or enhancement. Vertebral body heights are maintained. L5 vertebral body has curvilinear low signal involving both columns of the vertebral body with small extension into posterior elements, with regional fatty marrow signal, without significant associated marrow edema or enhancement. Appearance suggests chronic fracture without significant displacement, loss of vertebral body height, or retropulsion. Conus terminates at upper half of L2 level, and has normal caliber and signal. Filum and cauda equina appear unremarkable. No abnormal enhancement in the imaged spinal canal. Paraspinal space appears unremarkable. L1-2: Small focal left paracentral disc protrusion, and focal left paracentral annular fissure. No significant canal or neuroforaminal stenosis. L2-3: Left lateral recess region small dorsal endplate spurs. No significant canal or neuroforaminal stenosis. L3-4: Disc bulges centrically larger at right side. Minimal nonsignificant right neuroforaminal stenosis. L4-5: Very small disc bulge. Focal central/right paracentral annular fissure. Bilateral facet arthropathy and mild thickening of the ligamentum flavum. Minimal nonsignificant canal stenosis, with facets/ligamentum flavum contacting adjacent cauda equina nerve roots. No significant neuroforaminal stenosis. L5-S1: Small disc bulge. Annular fissure in left lateral recess region. Mild bilateral facet arthropathy. No significant canal stenosis. Mild left neuroforaminal stenosis. Procedure Note Vasiliy Chand MD - 08/14/2019 EXAMINATION: Magnetic resonance imaging (MRI) of the lumbar spinewithout and with contrast HISTORY: R90.82: White matter disease R20.0: Numbness and tingling of lower extremity R20.2: Numbness and tingling of lower extremity G44.59: Other complicated headache syndrome TECHNIQUE: MRI of the lumbar spine was performed prior to and following the uneventful administration of [] intravenous gadolinium 7 mm Gadavist contrast according to standard protocol. FINDINGS: Normal alignment. Lumbar spine ligaments are intact. Intervertebral disc space heights are grossly maintained. Desiccation of the L1-2, L3-4, L4-5, L5-S1 intervertebral discs. No significantabnormal disc edema or enhancement. Vertebral body heights are maintained. L5 vertebral body has curvilinear low signal involving both columns ofthe vertebral body with small extension into posterior elements, withregional fatty marrow signal, without significant associated marrow edema or enhancement. Appearance suggests chronic fracture without significant displacement, loss of vertebral body height, or retropulsion. Conus terminates at upper half of L2 level, and has normal caliber and signal. Filum and cauda equina appear unremarkable. No abnormal enhancement in the imaged spinal canal. Paraspinal space appears unremarkable. L1-2: Small focal left paracentral disc protrusion, and focal left paracentral annular fissure. No significant canal or neuroforaminal stenosis. L2-3: Left lateral recess region small dorsal endplate spurs. No significant canal or neuroforaminal stenosis. L3-4: Disc bulges centrically larger at right side. Minimalnonsignificant right neuroforaminal stenosis. L4-5: Very small disc bulge. Focal central/right paracentral annular fissure. Bilateral facet arthropathy and mild thickening of theligamentum flavum. Minimal nonsignificant canal stenosis, with facets/ligamentum flavum contacting adjacent cauda equina nerve roots. No significant neuroforaminal stenosis. L5-S1: Small disc bulge. Annular fissure in left lateral recess region. Mild bilateral facet arthropathy. No significant canal stenosis. Mildleft neuroforaminal stenosis. IMPRESSION: Lumbar spine degenerative changes causing minimal/mild spinal stenosis, described above. L5 abnormal marrow signal, appearance suggests sequela of chronicfracture without significant displacement, loss of vertebral body height, or retropulsion . This report was electronically signed by VASILIY CHAND on 08/14/20198:10 AM . Mckay Duránilan CLINICAL SERVICES CONSULTANT-WAFER LINE WORKER MR ORDERABLES * OPH OCT TEST [facility] (07/28/2019 12:00 AM HVAC/R INSTRUCTOR) Anatomical Region Laterality Modality Other 07/28/2019 Renard Momin MD OPHTHALMOLOGY SERVIC ES ORDERABLES * OPH IOL TEST [facility] (05/23/2019 11:11 AM CDT) Anatomical Region Laterality Modality Other 05/23/2019 11:1 1 AM CDT Renard Momin MD OPHTHALMOLOGY SERVIC ES ORDERABLES * OPH CORNEAL TOPOGRAPHY TEST [facility] (04/18/2019 12:26 PM CDT) Anatomical Region Laterality Modality Other 04/18/2019 12:2 6 PM CDT Renard Momin MD OPHTHALMOLOGY SERVIC ES ORDERABLES * OPH OCT TEST [facility] (03/17/2019 12:00 AM CDT) Anatomical Region Laterality Modality Other 03/17/2019 Renard Momin MD OPHTHALMOLOGY SERVIC ES ORDERABLES * OPH VISUAL FIELD TEST [facility] (10/18/2018 11:13 AM HVAC/R INSTRUCTOR) Anatomical Region Laterality Modality Other 10/18/2018 11:1 3 AM HVAC/R INSTRUCTOR Renard Momin MD OPHTHALMOLOGY SERVIC ES ORDERABLES * OPH OCT TEST [facility] (09/23/2018 10:09 AM HVAC/R INSTRUCTOR) Anatomical Region Laterality Modality Other 09/23/2018 10:0 9 AM HVAC/R INSTRUCTOR Ilana Gaviria MD OPHTHALMOLOGY SERVIC ES ORDERABLES * OPH OCT TEST [facility] (08/31/2018 9:32 AM HVAC/R INSTRUCTOR) Anatomical Region Laterality Modality Other 08/31/2018 9:32 AM HVAC/R INSTRUCTOR Ilana Gaviria MD OPHTHALMOLOGY SERVIC ES ORDERABLES * HCG URINE QUALITATIVE - POINT OF CARE (06/30/2018 6:44 AM HVAC/R INSTRUCTOR) HCG Qual Urine Negative Negative [facility] P OCT TESTING QC Verified Yes Yes [facility] POCT TESTING Urine URINE / Unknown 06/30/2018 6 :44 AM HVAC/R INSTRUCTOR Renard Momin MD LAB - POINT OF CARE ORDERABLES [facility] POCT TESTING [address] [phone] * OPH COLOR FUNDUS PHOTOGRAPHY [facility] (06/21/2018 11:53 AM CDT) Anatomical Region Laterality Modality Other 06/21/2018 11:5 3 AM CDT Renard Momin MD OPHTHALMOLOGY SERVIC ES ORDERABLES * CT ORBITS WO CONTRAST (03/25/2018 3:32 PM CDT) Anatomical Region Laterality Modality Head Computed Tomogra phy 03/25/2018 3:36 PM CDT Impressions 03/25/2018 4:48 PM CDT IMPRESSION: Stable mild tortuosity of the intraorbital optic nerves. Otherwise normal examination of the orbits. No significant changes from the prior examinations from 2017. This report was approved by Russell Frias M.D. on 03/25/2018 4:15 PM . I, Dr. Skyler Oliver have personally reviewed and interpreted this examination/study. This report was electronically signed by Skyler Oliver on 03/25/2018 4:48 PM . 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 FINDINGS: Comparison is made to an outside institution head CT and brain MRI from 03/09/2017 There is mild tortuosity of the intraorbital optic nerves similar to prior. Otherwise, the orbits appear normal. There are small mucous retention cysts in the right maxillary sinus. The hard palate, visible portions of the mandible, and temporomandibular joints appear normal. No acute facial bone fractures are identified. There is a left mastoid effusion. No soft tissue abnormality is identified. Leftward nasal septal deviation. 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 FINDINGS: Comparison is made to an outside institution head CT and brain MRI from 03/09/2017 There is mild tortuosity of the intraorbital optic nerves similar to prior. Otherwise, the orbits appear normal. There are small mucous retention cysts in the right maxillary sinus. The hard palate, visible portions of the mandible, and temporomandibular joints appear normal. No acute facial bone fractures are identified. There is a left mastoid effusion. No soft tissue abnormality is identified. Leftward nasalseptal deviation. IMPRESSION: Stable mild tortuosity of the intraorbital optic nerves. Otherwisenormal examination of the orbits. No significant changes from the prior examinations from 2017. This report was approved by Russell Frias M.D. on 03/25/2018 4:15 PM. I, Dr. Skyler Oliver have personally reviewed and interpreted this examination/study. This report was electronically signed by Skyler Oliver on03/25/2018 4:48 PM . Melissa Andrade APRN-WAFER LINE WORKER CT ORDERABLES * DERMATOPATHOLOGY (Specimen Count = 1) (03/08/2018 12:00 AM CDT) Case Report Dermatopathology Report Case: [id number] Authorizing Provider: Melissa Andrade, BREANNA-WAFER LINE WORKER Collected: 03/08/2018 12:00 AM Ordering Location: [facility] Received: 03/09/2018 07:09 AM Pathologist: Kartik Mims MD Specimen: Skin, right lower eyelid 8 12:48 PM CDT DERMATOPATHOLOGY LABORATORY Final Diagnosis Specimen A. SKIN, right lower eyelid: INTRADERMAL MELANOCYTIC NEVUS, IRRITATED (D22.11) 8 12:48 PM CDT DERMATOPATHOLOGY LABORATORY Clinical History Rule out malignancy. 8 12:48 PM CDT DERMATOPATHOLOGY LABORATORY Gross Description Specimen A: Received is one formalin filled container labeled with the patient's name and designated right lower eyelid. The specimen consists of a shave biopsy measuring [id number]. Jar 0. 12:48 PM CDT DERMATOPATHOLOGY LABORATORY Microscopic Description Specimen A. SKIN, right lower eyelid: There are nests of cytologically bland melanocytes within the dermis that mature with depth. MART-1/Melan A highlights melanocytes along the dermal epidermal junction and in the dermis. Mib 1 (Ki-67), a proliferation marker, highlights only rare melanocytes. This case was also reviewed by Dr. Paola Lawrence who agrees with the diagnosis. 8 12:48 PM CDT DERMATOPATHOLOGY LABORATORY Disclaimer An external and internal positive and negative controls are appropriate for the histochemical, immunohistochemical and immunofluorescence stain(s) in this case (if any), except where stated explicitly. The performance characteristics of the stain(s) cited in this report were developed and its performance characteristic determined by the Dermatopathology Laboratory at [facility]. These tests need not be, and therefore are not, approved by the [place] Food and Drug Administration. The tests are used for clinical purposes. Billing Codes Specimen Charges Stain Charges 08121 1 [id number] 1 1 8 12:48 PM CDT DERMATOPATHOLOGY LABORATORY Embedded Images 8 12:48 PM CDT DERMATOPATHOLOGY LABORATORY Pathology/Cytolog y TISSUE SPECIMEN FROM SKIN / Unknown 03/08/2018 03/09/2018 7:09 AM CDT Melissa Andrade CLINICAL SERVICES CONSULTANT-[facility] LAB - PATHOLOGY /CYTOLOGY ORDERABLES DERMATOPATHOLOGY LABORATORY [facility] - Department of Dermatology [address] [place] [address], [address] Lab [address] [phone] * OPH COLOR FUNDUS PHOTOGRAPHY [facility] (03/02/2018 4:08 PM CDT) Anatomical Region Laterality Modality Other 03/02/2018 4:08 PM CDT Ilana Gaviria MD OPHTHALMOLOGY SERVIC ES ORDERABLES * OPH OCT TEST [facility] (03/02/2018 2:59 PM CDT) Anatomical Region Laterality Modality Other 03/02/2018 2:59 PM CDT Ilana Gaviria MD OPHTHALMOLOGY SERVIC ES ORDERABLES * OPH OCT TEST [facility] (02/25/2018 9:57 AM CDT) Anatomical Region Laterality Modality Other 02/25/2018 9:57 AM CDT Renard Momin MD OPHTHALMOLOGY SERVIC ES ORDERABLES * OPH VISUAL FIELD TEST [facility] (12/31/2017 8:40 AM CDT) Anatomical Region Laterality Modality Other 12/31/2017 8:40 AM CDT Renard Momin MD OPHTHALMOLOGY SERVIC ES ORDERABLES * CYTOLOGY SMEAR PAP THIN PREP (10/23/1998 10:34 AM HVAC/R INSTRUCTOR) Result CASE NUMBER [id number] Comment: ORDERING PHYSICIAN HOMER MORAES SPECIMEN TYPE PAP Smear Date 10/23/1998 Procedure Cervical/Endocervical, 1 Vial for Thin Prep Received Specimen Adequacy Satisfactory for Evaluation but Limited No endocervical component in a non-atrophic cervical smear. Categorization Within Normal Limits Comment Inflammation Present. Snomed. 10/29/1998 1528 <1> Officer Captain Rosanne Silverio (ASCP) PAP Footnote The PAP smear is only a screening procedure to aid in the detection of cervical cancer and its precursors. It is not a diagnostic procedure and should not be used as the sole means to detect cervical cancer. Both false negative and false positive results have been experienced. MISCELLANEOUS SAMPLES / Unknown 10/23/1998 10:34 AM HVAC/R INSTRUCTOR 10/28/1998 10:34 AM HVAC/R INSTRUCTOR Historical Provider LAB - PATHOLOGY/C YTOLOGY ORDERABLES Care Teams Melting Operator Relationship Specialty Start Date End Date David Clark MD [address] [place] [address] [phone] PCP - General 12/21/17
--- OUTSIDE RECORDS SUMMARY | 2024-10-13 18:27 | XMS_ITS | Referral Summary ---
Author Organization [facility] Address [address] [place] [address] Care Team Providers Care Civil Engineering Professor Name Role Phone David Clark MD Primary Care Provider [phone] Source Comments [facility],non-owned Affiliates and Associated Physician Practices is amultiple site organization consisting of ambulatory clinics and hospital sitesin [place], [place], [place] and [place]. This disclosure is being madepursuant to the Care Everywhere program and may not contain all information available regarding this patient. Last updated 18.[facility] Encounters Date Type Department Care Team Description 09/19/2024 Orders Only [facility] - Ophthalmology [address] [place] [phone] Charlie Valera MD 09/18/2024 1:25 PM OFFSHORE WIND OPERATIONS MANAGER Clinical Support [facility] Ophthalmology [address] [place] [phone] Jerri Carrasco MD Cystoid macular edema of right eye (Primary Dx) 09/18/2024 Travel 09/18/2024 1:45 PM OFFSHORE WIND OPERATIONS MANAGER Office Visit [facility] Ophthalmology [address] [place] [phone] Jerri Carrasco MD Cystoid macular edema of right eye (Primary Dx); Glaucoma, secondary, right, severe stage; 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; Axenfeld-Rosetta syndrome; Pseudophakia of right eye; Nuclear sclerotic cataract, left 09/15/2024 Orders Only [facility] - Ophthalmology [address] [place] [phone] Charlie Valera MD Glaucoma, secondary, right, severe stage 09/15/2024 1:50 PM OFFSHORE WIND OPERATIONS MANAGER Clinical Support [facility] - Ophthalmology [address] [place] [phone] Renard Momin MD 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 (Primary Dx) 09/15/2024 1:45 PM OFFSHORE WIND OPERATIONS MANAGER Clinical Support [facility] - Ophthalmology [address] [place] [phone] Renard Momin MD 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 (Primary Dx) 09/15/2024 Travel 09/15/2024 1:40 PM OFFSHORE WIND OPERATIONS MANAGER Office Visit [facility] - Ophthalmology [address] [place] [phone] Renard Momin MD Glaucoma, secondary, right, severe stage (Primary Dx); 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 Follow up in one month with Psychologist/Counselor/SupportGroup/Psychiatrist [...] (05/24/2020): Added automatically from request for surgery [id number] Dysphagia 02/26/2020 Overview (05/24/2020): Added automatically from request for surgery [id number] Nuclear sclerotic cataract, right 06/19/2019 Mixed conductive [...] was 64 right eye at diagnosis at [facility] in late 2016. Renard Momin MD 12/31/2017 [...] head 03/20/2020 10/14/2021 Cough 03/20/2020 11/20/2022 Immunizations Name Administration Dates Next Due FLU VACCINE QUAD IIV4 SPLIT 0.25 ML IM 9,07/04/2016,06/14/2014 HEP B VACCINE, ADULT 3 DOSE 01/03/2015, 4 INFLUENZA VACCINE 08/01/2019,05/25/2018 INFLUENZA VACCINE, QUADR. (F LUZONE; FLULAVAL; FLUARIX; AFLURIA QUADRIVALENT; 6MO+), 0.5 ML (IIV4) 05/28/2022,05/25/2018 TDAP (7yrs+) 01/03/2019 Social History Tobacco Use Types Packs/Day [...] Comments Blood Pressure 146/86 10/26/2023 2:34 PM OFFSHORE WIND OPERATIONS MANAGER Pulse 76 10/26/2023 2:34 PM OFFSHORE WIND OPERATIONS MANAGER Temperature 36.2 C (97.1 F) 09/22/2023 11:39 AM OFFSHORE WIND OPERATIONS MANAGER Respiratory Rate 18 09/22/2023 11:39 AM OFFSHORE WIND OPERATIONS MANAGER Oxygen Saturation 98% 10/26/2023 2:34 PM OFFSHORE WIND OPERATIONS MANAGER Inhaled Oxygen Concentration 21% 11/07/2019 8 :00 AM CDT Weight 77.1 kg (170 lb) 10/26/2023 2:34 PM OFFSHORE WIND OPERATIONS MANAGER Height 165.1 cm (5' 5 ) 10/26/2023 2:34 PM OFFSHORE WIND OPERATIONS MANAGER Body Mass Index 28.29 10/26/2023 2:34 PM OFFSHORE WIND OPERATIONS MANAGER Functional Status Functional Status Response Date of [...] person have difficulty concentrating/remembering/making decisions? No 06/19/2019 Plan of Treatment Upcoming Encounters Date Type Department Care Team (Latest Contact Info) Description 10/24/2024 1:00 PM OFFSHORE WIND OPERATIONS MANAGER Office Visit [facility] - Neurology [address] [facility] [address] [place] [address] Gladis Prince MD [address] [place] [address] [address] [place] [phone] 01/22/2025 1:15 PM CDT Office Visit [facility] - Ophthalmology [address] [place] [address], [phone] Jerri Carrasco MD [address] [place] [address] [place] [phone] 02/26/2025 9:15 AM CDT Hospital Encounter [facility] OR [facility]AMB SURGERY [address] [place] [phone] Renard Momin MD [address] [place] [phone] Surgery General 02/26/2025 9:15 AM CDT - 02/26/2025 11:20 AM CDT Surgery [facility] OR [facility]LIE[facility]AMB SURGERY [address] [place] [phone] Renard Momin MD [address] [place] [phone] Baerveldt implant 250mm RIGHT EYE Scheduled Procedures Name Priority Associated Diagnoses Date/Ti me 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, severe stage 02/26/2025 9:15 AM CDT Medical Devices Implanted Type Area Cast Iron Drain Pipe Layer Device Identifier Shelf Expiration Date Model / Serial / Lot Drain Glcm Thk.9mm Blnt Tpr [facility] Flxb - [id number] Implanted:Qty: 1 on 06/30/2018 by Renard Momin MD at [facility] Right: Eye [employer] 05/16/2020 7 / [id number] / [id number] Graft Tissue Ttpl Ioptch Sclr .8x.5cm - [id number] Implanted:Qty: 1 on 06/30/2018 by Renard Momin MD at [facility] Right: Eye [employer] 03/22/2023 [id number] / [id number] / [id number] Iol Implanted:Qty: 1 on 06/19/2019 by Renard Momin MD at [facility] Right: Eye 09/22/2023 [id number] 19.5D / [id number] / Procedures Procedure Name Priority Date/Time Associated Diagnosis Comments RETINAL ANALYSIS OCT Routine 09/18/2024 1:25 PM OFFSHORE WIND OPERATIONS MANAGER Cystoid macular edema of right eye COMPREHENSIVE METABOLIC PANEL STAT 09/22/2023 2:18 PM OFFSHORE WIND OPERATIONS MANAGER CYTOLOGY SMEAR PAP THIN PREP ANUJA 10/23/1998 10:34 AM OFFSHORE WIND OPERATIONS MANAGER from Last 3 Months or Most Recently Relevant to Health Maintenance Results * RETINAL ANALYSIS OCT (09/18/2024 1:25 PM OFFSHORE WIND OPERATIONS MANAGER) Anatomical Region Laterality Modality Head External-Camera Photography Narrative 09/19/2024 10:35 AM OFFSHORE WIND OPERATIONS MANAGER Images from the original result were not included. OD: mild ERM, mild DRIL, no CME, overall improved/stable from prior OS: mild ERM, otherwise normal, stable from previous OD (top 04/19/24, bottom 09/18/2024) OS (top 04/19/24, bottom 09/18/2024) Jerri Carrasco MD OPHTHALMOLOGY SCHED ORD W PACS * (ABNORMAL) COMPREHENSIVE METABOLIC PANEL (09/22/2023 2:18 PM OFFSHORE WIND OPERATIONS MANAGER) BUN 9 7 - 26 mg/dL 09/22/2023 3:34 PM [facility] Creatinine 0.77 0.56 - 0.96 mg/dL 09/22/2023 3:34 PM [facility] Sodium 138 136 - 145 mmol/L 09/22/2023 3:34 PM [facility] Potassium 4.3 3.5 - 4.5 mmol/L 09/22/2023 3:34 PM [facility] Chloride 109(H) 98 - 107 mmol/L 09/22/2023 3:34 PM [facility] CO2 21(L) 22 - 29 mmol/L 09/22/2023 3:34 PM [facility] Glucose 92 70 - 115 mg/dL 09/22/2023 3:34 PM [facility] Calcium 8.9 8.4 - 10.2 mg/dL 09/22/2023 3:34 PM [facility] Protein Total 7.0 6.0 - 8.3 g/dL 09/22/2023 3:34 PM [facility] Albumin 3.6 3.4 - 5.0 g/dL 09/22/2023 3:34 PM [facility] Bilirubin Total 0.7 0.2 - 1.2 mg/dL 09/22/2023 3:34 PM [facility] Alkaline Phosphatase 67 40 - 150 U/L 09/22/2023 3:34 PM [facility] ALT 18 5 - 55 U/L 09/22/2023 3:34 PM [facility] AST 14 5 - 34 U/L 09/22/2023 3:34 PM [facility] Anion Gap 8 6 - 16 09/22/2023 3:34 PM [facility] BUN/Creatinine Ratio 12 7 - 23 09/22/2023 3:34 PM [facility] Osmolality Calculated 284 275 - 295 mOsm/kg 09/22/2023 3:34 PM [facility] Albumin/Globulin Ratio 1.1 1.1 - 2.3 09/22/2023 3:34 PM [facility] eGFR by CKD-EPI >90 >=90 mL/min/1.7 3 m2 09/22/2023 3:34 PM [facility] Blood BLOOD SPECIMEN / Unknown Venipuncture / Unknown 09/22/2023 2:18 PM OFFSHORE WIND OPERATIONS MANAGER 09/22/2023 3:01 PM [facility] Linnea Zavala [employer] INSPECTOR[facility] [place] TRY ORDERABLES [facility] [address] [place] [address], [facility] [phone] * CYTOLOGY SMEAR PAP THIN PREP (10/23/1998 10:34 AM OFFSHORE WIND OPERATIONS MANAGER) Result CASE NUMBER [id number] Comment: ORDERING PHYSICIAN HOMER MORAES SPECIMEN TYPE PAP Smear Date 10/23/1998 Procedure Cervical/Endocervical, 1 Vial for Thin Prep Received Specimen Adequacy Satisfactory for Evaluation but Limited No endocervical component in a non-atrophic cervical smear. Categorization Within Normal Limits Comment Inflammation Present. Snomed. 10/29/1998 1528 <1> Technical Solutions Consultant Rosanne Silverio (ASCP) PAP Footnote The PAP smear is only a screening procedure to aid in the detection of cervical cancer and its precursors. It is not a diagnostic procedure and should not be used as the sole means to detect cervical cancer. Both false negative and false positive results have been experienced. MISCELLANEOUS SAMPLES / Unknown 10/23/1998 10:34 AM OFFSHORE WIND OPERATIONS MANAGER 10/28/1998 10:34 AM OFFSHORE WIND OPERATIONS MANAGER Historical Provider LAB - PATHOLOGY/C YTOLOGY ORDERABLES from Last 3 Months or Most Recently Relevant to Health Maintenance Advance Directives * Full Code (Latest Code Status on File) Date Activated Date Inactivated Comments 06/30/2018 8:25 AM 06/30/2018 10:07 AM * Full Code Date Activated Date Inactivated Comments 06/30/2018 6:34 AM 06/30/2018 8:25 AM Care Teams Civil Engineering Professor Relationship Specialty Start Date End Date David Clark MD [address] [place] [phone] PCP - General 12/21/17
[2024-10-13 18:29] VITALS: BP 132/75; PULSE 75; RESP 20; TEMP 36.4; O2SAT 100
== END 2024-10-13 19:00 | disposition home or self-care (01) ==
PROVIDERS: Emergency Provider Nurse Practitioner Family; PCP Family Medicine
DX: J06.9 Acute upper respiratory infection, unspecified (principal)
CPT/HCPCS: 99213; G0463

== ENCOUNTER 2025-01-26 18:37 | Emergency (ER) | payer OTHER, SELFPAY ==
--- NOTE | 2025-01-26 18:40 | ED_ITS ---
HPI - Skin/Abscess/Foreign Bdy General Chief complaint: Skin/Abscess/Foreign Body Stated complaint: blisters on lt hand Time Seen by Provider: 01/26/25 18:40 Source: patient Mode of arrival: ambulatory Limitations: no limitations History of Present Illness HPI narrative: Jane is a 49-year-old female patient presenting to the clinic today with complaints of painful blisters on her left hand. She reports symptoms started this morning with pain and rash to the left hand and as the day went on she developed some blistering. Denies any injury or burn. Denies any environmental changes. No new hand soaps, body wash, shampoos, lotions, or detergents. No fevers or chills. States that it is a stinging burning pain in the left hand. No history of shingles or herpes. Related Data Home Medications ?Medication ?Instructions ?Recorded ?Confirmed ?Last Taken ?Type omeprazole 40 mg capsule,delayed mg 01/26/25 Unknown History release timolol maleate 0.5 % eye drops drp 01/26/25 Unknown History Allergies Allergy/AdvReac Type Severity Reaction Status Date / Time codeine Allergy Mild RASH Verified 01/26/25 18:52 Review of Systems Review of Systems: Pertinent positives per HPI. Patient denies any fever, chills, rash, headache, visual changes, dizziness, cough, runny nose, sore throat, shortness of breath, chest pain, palpitations, nausea, vomiting, diarrhea, constipation, abdominal pain, or any urinary issues. PMFSH Comments At the time of my signature, I reviewed and agree with the nursing past medical, surgical, social, and family history. There is no relevant family history pertinent to the patient complaint. Exam Narrative: General: Well-developed, well nourished, in no apparent distress Head: Normocephalic, atraumatic. Cardio: Regular rate and rhythm, s1 and s2 normal, no murmur appreciated. Resp: Clear to auscultation bilaterally, no rhonchi, rales, wheezing or rubs. Integumentary: [place], warm, and dry, red, raised, painful rash with blistering to the 4th and 5th knuckles of the left hand. Course Course Emergency Course: Portions of this record may have been created with voice recognition software. Level of Care: Express Care Visit Vital Signs Vital signs: Vital Signs Temperature 36.5 C 01/26/25 18:43 Pulse Rate 68 01/26/25 18:43 Respiratory Rate 16 01/26/25 18:43 Blood Pressure 139/89 01/26/25 18:43 Pulse Oximetry 100 01/26/25 18:43 Oxygen Delivery Room Air 01/26/25 18:43 Temperature 36.5 C 01/26/25 18:43 Pulse Rate 68 01/26/25 18:43 Respiratory Rate 16 01/26/25 18:43 Blood Pressure 139/89 01/26/25 18:43 Pulse Oximetry 100 01/26/25 18:43 Oxygen Delivery Room Air 01/26/25 18:43 Vital signs reviewed MDM - Skin/Abscess/Foreign Bdy MDM Narrative Medical decision making narrative: At the time of visit patient is resting comfortably on the exam table. Patient appears to be nontoxic. Plan: I suspect patient has painful blister rash-possibly shingles. Denies any injury or burn. No environmental changes or household changes. Will place the patient on acyclovir to cover for shingles. Supportive measures were discussed with the patient and they voiced understanding discharge instructions and agrees to treatment plan. Return precautions reviewed Differential Diagnosis Differential diagnosis: Likely abscess of skin or subcutaneous tissue, viral exanthem, dermatophytosis, urticaria, herpes zoster, allergic reaction to drug, cellulitis, eczema, insect bites, impetigo and contact dermatitis Discharge Plan Discharge Clinical Impression: Blister, Rash/skin eruption Patient Disposition: Home Condition: Stable Instructions: Antibiotic Form, Shingles (ED), Acute Rash (ED) Additional Instructions: Take acyclovir as prescribed Increase fluids and stay well hydrated May take Tylenol/Motrin as needed for pain May apply lidocaine the affected area to help alleviate pain Follow-up with your primary care doctor in 3-5 days if symptoms persist Go to the emergency room if symptoms worsen Patient Language: Palestinian Prescriptions: New acyclovir 800 mg tablet 800 mg PO Q4H 7 Days Qty: 42 0RF Rx Instructions: while awake; give 5 doses in 24 hours No Action omeprazole 40 mg capsule,delayed release(DR/EC) timolol maleate 0.5 % drops albuterol sulfate 90 mcg/actuation HFA aerosol inhaler 2 puff inhalation QID PRN (Reason: shortness of breath or wheezing) Qty: 6.7 0RF (DME) Aerochamber MV Spacer See Rx Instructions .Route Qty: 1 0RF Rx Instructions: As directed Follow-up/Referrals: Eduardo,David Hargrove MD [Primary Care Provider] - Time of Disposition: 18:57 Quality NIHSS Nursing Documentation ED NIHSS nursing documentation: reviewed/agree
--- OUTSIDE RECORDS SUMMARY | 2025-01-26 18:41 | XMS_ITS | Clinical Summary ---
Author Organization [facility] Address [address] [place] [address] Phone Care Team Providers Care Health Education Assistant Name Role Phone David Clark MD Primary Care Provider [phone] Renard Momin [phone] Allergies Active Allergy Reactions Criticality Noted [...] 8:36 PM CDT Height 165.1 cm (5' 5) 05/29/2021 8:36 PM CDT Body Mass Index 26.63 05/29/2021 8:36 PM CDT Plan of Treatment Health Maintenance Due Date Last Done Comments Hepatitis C Virus (HCV) Screening 1975 Hepatitis B Immunization (3 of 3 - 19+ 3-dose series) 02/28/2015 01/03/2015, 06/14/2014 Colonoscopy 2020 Colorectal Cancer Screening 2020 SARS-COV-2 Immunization () 04/23/2024 Cologuard 2025 Immunochemical Fecal Occult Blood 2025 Influenza Immunization (Season Ended) 2025 08/01/2019, 05/25/2018, 07/04/2016, Additional history exists Respiratory Syncytial Virus (RSV) Immunization (Adult) (1 - 1-dose 75+ series) 2050 DTaP/Tdap/Td Immunization Discontinued 01/03/2019 TdaP Immunization Completed 01/03/2019 Discussion re Starting/Frequency of Mammograms Discontinued 12/22/2021, 02/03/2019 Human Papillomavirus (HPV) Immunization Aged Out No longer eligible based on patient's age to complete this topic Meningococcal Immunization (ACWY) Aged Out No longer [...] is made to exam dated: 02/03/2019 [facility]. BREAST TISSUE:There are scattered fibroglandular densities in [...] signed by: Mirela Garcia M.D. ll/:12/22/2021 09:22:30 Wood Polisher(s): Naty Gallagher)(M), [facility]; Collin Otero RDMS, [facility] letter sent: Normal Exam Reading location: [facility] OVERALL STUDY BIRADS: 2 Benign Procedure Note [...] Comparison is made to exam dated: 02/03/2019 [facility]. BREAST TISSUE:There are scattered [...] signed by: Mirela Garcia M.D. ll/:12/22/2021 09:22:30 Wood Polisher(s): Naty Gallagher)(M), [facility]; Collin Otero RDMS, [facility] letter sent: Normal Exam Reading location: [facility] OVERALL STUDY BIRADS: 2 Benign Nella Payne APRN, CNP IMG MAMMO ORDERABLES Abby l Result from Last 3 Months or Most Recently Relevant to Health Maintenance Insurance MEDICAID [place] Care Teams Health Education Assistant Relationship Specialty Start Date End Date David Clark MD [address] [facility] [address] [place] [address] PCP - General Family Medicine 08/27/17 Renard Momin [address] [place] [address] Ophthalmology 07/19/18
[2025-01-26 18:43] VITALS: BP 139/89; PULSE 68; RESP 16; TEMP 36.5; O2SAT 100
== END 2025-01-26 19:04 | disposition home or self-care (01) ==
PROVIDERS: Emergency Provider Nurse Practitioner Family; PCP Family Medicine
DX: S60.522A Blister (nonthermal) of left hand, initial encounter (principal); X58.XXXA Exposure to other specified factors, initial encounter; R21 Rash and other nonspecific skin eruption; I34.1 Nonrheumatic mitral (valve) prolapse; J45.909 Unspecified asthma, uncomplicated
CPT/HCPCS: 99213; G0463